=== PATIENT | female | born 1985 | race Two or more races ===

== ENCOUNTER 2020-03-21 10:20 | Outpatient (REF) | payer OTHER, SELFPAY ==
[2020-03-21 10:54] LABS: COVID-19 Test Negative (Negative)
== END 2020-03-21 10:21 | disposition home or self-care (01) ==
LOC: HO.LAB 10:20
PROVIDERS: Visit Provider Internal Medicine
DX: Z20.828 Contact with and (suspected) exposure to other viral communicable diseases (principal)
CPT/HCPCS: 87635

== ENCOUNTER 2020-06-23 09:25 | Outpatient (REF) | payer OTHER, MEDICAID, SELFPAY | END 2020-06-23 09:26 | disposition home or self-care (01) | LOC: HO.LAB 09:25 | PROVIDERS: Visit Provider Internal Medicine | DX: Z20.822 Contact with and (suspected) exposure to COVID-19 (principal) | CPT/HCPCS: 36415; C9803; U0003 ==

== ENCOUNTER 2020-07-03 14:52 | Outpatient (REF) | payer OTHER, MEDICAID, SELFPAY | END 2020-07-03 14:53 | disposition home or self-care (01) | LOC: HO.LAB 14:52 | PROVIDERS: Visit Provider Internal Medicine | DX: Z20.822 Contact with and (suspected) exposure to COVID-19 (principal) | CPT/HCPCS: 36415; C9803; U0003 ==

== ENCOUNTER 2020-07-17 09:38 | Outpatient (REF) | payer MEDICAID, SELFPAY | END 2020-07-17 09:39 | disposition home or self-care (01) | LOC: HO.LAB 09:38 | PROVIDERS: Visit Provider Internal Medicine | DX: Z20.822 Contact with and (suspected) exposure to COVID-19 (principal) | CPT/HCPCS: 36415; C9803; U0003; U0005 ==

== ENCOUNTER 2020-09-04 14:15 | Outpatient (REF) | payer OTHER, MEDICAID, SELFPAY | END 2020-09-04 14:16 | disposition home or self-care (01) | LOC: HO.LAB 14:15 | PROVIDERS: Visit Provider Internal Medicine | DX: Z20.822 Contact with and (suspected) exposure to COVID-19 (principal) | CPT/HCPCS: 36415; C9803; U0003; U0005 ==

== ENCOUNTER 2020-11-20 17:38 | Emergency (ER) | payer MEDICAID, SELFPAY ==
[2020-11-20 18:00] VITALS: BP 150/84; PULSE 87; RESP 16; TEMP 36.7; O2SAT 98; BMI 40.4
[2020-11-20] MEDS: Lidocaine HCl 1 % MPF 5 ML VIAL SUBCUT ×2 (18:51)
--- NOTE | 2020-11-20 18:54 | ED_ITS ---
HPI - Skin/Abscess/Foreign Bdy General Chief complaint: Skin/Abscess/Foreign Body Stated complaint: abscess Time Seen by Provider: 11/20/20 18:11 History of Present Illness HPI narrative: Patient complains of painful area on the skin of the right lower abdomen that is red painful and tender, no fever no vomiting no other abdominal pain, it started 3 days ago pain is mild Related Data Previous Rx's Medication Instructions Recorded ibuprofen 600 mg PO Q6H PRN #20 tab 11/20/20 oxycodone-acetaminophen [Percocet] 1 tab PO Q6H PRN #7 tab 11/20/20 sulfamethoxazole-trimethoprim 1 tab PO BID 7 Days #14 tab 11/20/20 [Bactrim DS] cephalexin 500 mg PO BID 10 Days #20 cap 11/24/20 ibuprofen 800 mg PO Q8H PRN #14 tab 11/24/20 oxycodone 5 mg PO BID PRN #10 tab 11/24/20 Allergies Allergy/AdvReac Type Severity Reaction Status Date / Time No Known Allergies Allergy Verified 11/22/20 11:28 [No Known Allergies*] Review of Systems Review of Systems: positive for painful area on skin of right lower abdomen Negatives are no fever no chills no dizziness no weakness no headache no neck p ain no chest pain no abdominal pain no nausea or vomiting no dysuria no anorexia no dysuria PMFSH Past Medical History Source: nursing notes reviewed Surgical History History of section History of renal stent History of tubal ligation Family History Family History Father Renal failure Hypertension CVD (cardiovascular disease) Diabetes Mother Hypertension Arthritis Depression Maternal Grandmother Stroke Maternal Grandfather No problems noted. Paternal Grandfather Cancer Daughter In good health Daughter In good health Social History Social History Advance Directives: No Advance Directives Information Provided: No Patient : No Physical Exam Vital Signs: Vital Signs: Last Vital Signs Temp 98.1 F 11/20/20 18:00 Pulse 87 11/20/20 18:00 Resp 16 11/20/20 18:00 BP 150/84 H 11/20/20 18:00 Pulse Ox 98 11/20/20 18:00 Body Mass Index 40.4 general appearance no acute distress Head is normocephalic atraumatic Neck is supple Respiratory no acute distress Abdomen soft nontender Skin exam on the skin of the right side of the lower abdomen there is an abscess with fluctuance erythema and tenderness it is mobile it is not fixed, there is no discharge and there is minimal surrounding erythema Extremities full range of motion x4 Skin no other rashes Course Course Course Narrative: Abdominal wall abscess on the right side is cleansed with Betadine Anesthesia is 8 cc of 1% lidocaine An incision is made, loculations are probed and opened with a forceps and copious pus is discharged Packing is placed and a dressing was placed Discharge Plan Discharge Clinical Impression: Abscess of skin or subcutaneous tissue Patient Disposition: Home, Self-Care Additional Instructions: Return to ER in 2 days for packing removal wound check Return anytime for spreading redness, worse pain and swelling, any worse con dition or any concerns Prescriptions: New sulfamethoxazole-trimethoprim [Bactrim DS] 800-160 mg tablet 1 tab PO BID 7 Days Qty: 14 RF: 0 ibuprofen 600 mg tablet 600 mg PO Q6H PRN (Reason: pain) Qty: 20 RF: 0 oxycodone-acetaminophen [Percocet] 5-325 mg tablet 1 tab PO Q6H PRN (Reason: pain) Qty: 7 RF: 0 No Action cephalexin 500 mg capsule 500 mg PO BID 10 Days Qty: 20 RF: 0 ibuprofen 800 mg tablet 800 mg PO Q8H PRN (Reason: pain) Qty: 14 RF: 0 oxycodone 5 mg tablet 5 mg PO BID PRN (Reason: pain) Qty: 10 RF: 0 Stand Alone Forms: Work/School Release Interventions: ED Discharge Assessment Last Done: 11/20/20 19:30 Discharge Date/Time: 11/20/20 19:30
[2020-11-20] MEDS: Ibuprofen 600 MG TABLET PO (19:20)
[2020-11-20] MEDS: oxyCODONE HCl Immed Release 5 MG TABLET PO (19:20)
== END 2020-11-20 19:30 | disposition home or self-care (01) ==
PROVIDERS: Emergency Provider Internal Medicine
DX: L02.211 Cutaneous abscess of abdominal wall (principal)
CPT/HCPCS: 10060; 99284

== ENCOUNTER 2020-11-22 11:21 | Emergency (ER) | payer MEDICAID, SELFPAY ==
[2020-11-22 11:26] VITALS: BP 127/59; PULSE 90; RESP 16; TEMP 36; O2SAT 99; BMI 40.4
[2020-11-22] MEDS: oxyCODONE HCl Immed Release 5 MG TABLET PO (12:47)
--- NOTE | 2020-11-22 12:48 | ED.SKABFB ---
HPI - Skin/Abscess/Foreign Bdy General Chief complaint: Skin/Abscess/Foreign Body Stated complaint: wound check Time Seen by Provider: 11/22/20 12:16 Source: patient Mode of arrival: ambulatory Limitations: no limitations History of Present Illness HPI narrative: Patient presents to ED for re-evaluation of abdominal abscess that was drained 2 days ago and packed. Patient denies any complaints since procedure. Patient states packing is still in place. Related Data Previous Rx's Medication Instructions Recorded ibuprofen 600 mg PO Q6H PRN #20 tab 11/20/20 oxycodone-acetaminophen [Percocet] 1 tab PO Q6H PRN #7 tab 11/20/20 sulfamethoxazole-trimethoprim 1 tab PO BID 7 Days #14 tab 11/20/20 [Bactrim DS] Allergies Allergy/AdvReac Type Severity Reaction Status Date / Time No Known Allergies Allergy Verified 11/22/20 11:28 [No Known Allergies*] Review of Systems Review of Systems: Yes all other systems are reviewed and are negative Constitutional: Constitutional: Reports as per HPI and Reports no additional constitutional complaints Eyes: Eyes: Reports as per HPI and Reports no additional eye complaints ENT: Reports system reviewed and no additional complaints, except as documented and Reports as per HPI Cardiovascular: Cardiovascular: Reports as per HPI and Reports no additional cardiovascular complaints Respiratory: Respiratory: Reports as per HPI and Reports no additional respiratory complaints Gastrointestinal: Gastrointestinal: Reports as per HPI and Reports no additional gastrointestinal complaints Musculoskeletal: Musculoskeletal: Reports no additional musculoskeletal complaints and Reports as per HPI Neurologic: Reports system reviewed and no additional complaints, except as documented and Reports as per HPI Psychiatric: Psychiatric: Reports no additional psychiatric complaints and Reports as per HPI [facility] Past Medical History Surgical History (Updated 07/18/20 @ 11:54 by BRIGETTE Littlejohn) History of section History of renal stent History of tubal ligation Family History Family History (Updated 07/18/20 @ 11:56 by BRIGETTE Littlejohn) Father Renal failure Hypertension CVD (cardiovascular disease) Diabetes Mother Hypertension Arthritis Depression Maternal Grandmother Stroke Maternal Grandfather No problems noted. Paternal Grandfather Cancer Daughter In good health Daughter In good health Social History Social History Advance Directives: No Advance Directives Information Provided: No Patient : No Physical Exam Vital Signs: Vital Signs: Last Vital Signs Temp 96.8 F 11/22/20 11:26 Pulse 90 11/22/20 11:26 Resp 16 11/22/20 11:26 BP 127/59 L 11/22/20 11:26 Pulse Ox 99 11/22/20 11:26 Body Mass Index 40.4 Const: General: cooperative, healthy appearing, comfortable, no acute distress, well developed, alert, awake and Physically active Orientation/consciousness: patient oriented x3 HENMT: Head: Yes normal to inspection, Yes No palpable skull fracture present, Yes normocephalic and Yes atraumatic Eyes: General: appearance normal, both eyes and all related structures Neck: Neck: Yes normal visual inspection, Yes full ROM, Yes no lymphadenopathy, Yes no meningeal signs, Yes trachea midline, Yes supple and No tender Chest: Chest palpation & inspection: normal inspection of the chest and normal palpation of entire chest wall Resp: Effort & Inspection: normal respiratory effort and able to speak in complete sentences Auscultation: clear to auscultation bilaterally Cardio: Jugular venous distension: no JVD Heart sounds: S1 normal heart sound present and S2 normal heart sound present GI: Inspection: Yes normal to inspection and No abdominal wall ecchymosis Palpation (GI): Soft to palpation, not firm, nontender, no guarding and not rigid Abdomen image: 1. Area of incision and drainage negative for any pus drainage, foul odor, or fluctuance. : General: No CVA tenderness and Yes no CVA tenderness Back/Spine/Pelvis: Back: no CVA tenderness, No CVA tenderness and No back tenderness Skin: General skin exam: no rashes or lesions noted and elasticity normal Neuro: General: patient oriented x3, gait normal, no meningeal signs and CN's II-XI intact bilaterally Cranial nerves: Yes CN's II-XII intact bilaterally Extrem: General: Yes normal to inspection and Yes full ROM Psych: Appearance: grossly normal, well kempt and not disheveled Course Course Course Narrative: Will clean wound change packing. Reevaluation(s) Reevaluation #1: Old packing removed. Wound cleaned with sterile saline and Betadine iodine. New packing placed. Dressing placed. Oxycodone given for pain relief. Patienton form to follow up in 2 days for wound re-evaluation and repacking. Time: 12:52 MDM - Skin/Abscess/Foreign Bdy MDM Narrative Medical decision making narrative: Wound recheck Discharge Plan Discharge Clinical Impression: Encounter for wound re-check Patient Disposition: Home, Self-Care Instructions: Abscess (ED) Additional Instructions: regrese al servicio de urgencias inmediatamente si empeora el enrojecimiento, secreci?n profusa de pus, mal olor, fiebre, escalofr?os, dolor abdominal, n?useas, v?mitos o cualquier otro s?ntoma preocupante. [place] los antibi?ticos seg?n lo prescrito. Tu herida se est? curando adecuadamente. Al servicio de urgencias 2 d?as para reevaluaci?n de la herida y reempaquetado Prescriptions: No Action sulfamethoxazole-trimethoprim [Bactrim DS] 800-160 mg tablet 1 tab PO BID 7 Days Qty: 14 RF: 0 ibuprofen 600 mg tablet 600 mg PO Q6H PRN (Reason: pain) Qty: 20 RF: 0 oxycodone-acetaminophen [Percocet] 5-325 mg tablet 1 tab PO Q6H PRN (Reason: pain) Qty: 7 RF: 0 Referrals: Sugar Villatoro NP [Primary Care Provider] - 2 days (I and D of abdominal wound abscess. Wound healing appropriately) Interventions: ED Discharge Assessment Last Done: 11/22/20 13:06 Discharge Date/Time: 11/22/20 13:07 Print Language: French
== END 2020-11-22 13:07 | disposition home or self-care (01) ==
PROVIDERS: Emergency Provider Emergency Medicine; PCP Registered Nurse
DX: L02.211 Cutaneous abscess of abdominal wall (principal); Z98.890 Other specified postprocedural states
CPT/HCPCS: 99283

== ENCOUNTER 2020-11-24 09:35 | Emergency (ER) | payer MEDICAID, SELFPAY ==
[2020-11-24 09:44] VITALS: BP 155/82; PULSE 87; RESP 18; TEMP 36.4; O2SAT 96; BMI 40.4
--- NOTE | 2020-11-24 10:05 | ED.RECABL ---
HPI - Recheck/Abnormal Lab/Rx General Chief Complaint: Wound/Laceration Stated Complaint: wound check Time Seen by Provider: 11/24/20 09:49 Source: patient Mode of arrival: ambulatory Limitations: language barrier ([place]-speaking) History of Present Illness HPI narrative: complaint: wound re-check Initial visit (ago): day(s) (Four days ago) Initial visit for: cellulitis and abscess Returns today for: wound recheck Symptoms since prior visit: no new symptoms and improved Context: planned re-check Associated symptoms: none Treatments prior to arrival: other (Is taking her prescribed medications as previously prescribed) Related Data Previous Rx's Medication Instructions Recorded ibuprofen 600 mg PO Q6H PRN #20 tab 11/20/20 oxycodone-acetaminophen [Percocet] 1 tab PO Q6H PRN #7 tab 11/20/20 sulfamethoxazole-trimethoprim 1 tab PO BID 7 Days #14 tab 11/20/20 [Bactrim DS] cephalexin 500 mg PO BID 10 Days #20 cap 11/24/20 ibuprofen 800 mg PO Q8H PRN #14 tab 11/24/20 oxycodone 5 mg PO BID PRN #10 tab 11/24/20 Allergies Allergy/AdvReac Type Severity Reaction Status Date / Time No Known Allergies Allergy Verified 11/22/20 11:28 [No Known Allergies*] Review of Systems Review of Systems: Constitutional : No Fever, No Chills, Cardiovascular : No Chest Pain, No SOB Respiratory : No Dyspnea Gastrointestinal : No abdominal pain Musculoskeletal : No Joint Swelling Skin : positive wound No skin laceration, No Foreign bodies, No rash, No surrounding erythema Neuro : No Weakness, No Numbness/tingling Psych : No SI/HI/thoughts of self injury Yes all other systems are reviewed and are negative [facility] Past Medical History Attestation statement: The following information was validated with the patient. Surgical History History of section History of renal stent History of tubal ligation Family History Family History Father Renal failure Hypertension CVD (cardiovascular disease) Diabetes Mother Hypertension Arthritis Depression Maternal Grandmother Stroke Maternal Grandfather No problems noted. Paternal Grandfather Cancer Daughter In good health Daughter In good health Social History Social History Advance Directives: No Advance Directives Information Provided: No Patient : No Physical Exam Vital Signs: Vital Signs: Last Vital Signs Temp 97.6 F 11/24/20 09:44 Pulse 87 11/24/20 09:44 Resp 18 11/24/20 09:44 BP 155/82 H 11/24/20 09:44 Pulse Ox 96 11/24/20 09:44 Body Mass Index 40.4 vital signs have been reviewed as normal and appeared to be correct. Blood pressure normal. Heart rate normal. Respiration rate normal. Temperature normal. Oxygen saturation normal. Appearance: Alert. Oriented X3. No acute distress. Head: Normal external exam. Normocephalic. Atraumaticd Eyes: PERRLA. EOMI. Conjunctiva and sclera normal. Eyelids normal. ENT: EAC normal. TM's Normal. Pharynx normal. Uvula midline. Moist mucous membranes. Neck: Normal inspection. Neck supple. FROM. No adenopathy. Thyroid Normal. No meningeal signs. No neck mass noted. CVS: Normal heart rate and rhythm. Heart sound normal. Pulses normal throughout. No murmurs/rales/gallops. Respiratory: No respiratory distress. Painless inspiration. Breath sounds normal. No wheezes/rales/rhonchi noted. Chest nontender. No accessory muscle usage noted or decreased air movement noted. Abdomen: To the right lower quadrant abdominal wall patient has a wound that appears healing with packing in place with no surrounding erythema or purulent drainage noted. Packing removed and irrigated and no purulent drainage noted. No streaking noted. Soft and nontender. Bowel sounds normal in all 4 quadrants. No distention noted. No organomegaly noted. No visible injury noted. Back: Full range of motion noted. No rashes/lesion/induration/fluctuance or signs of infection noted. Skin: Skin warm and dry. Normal skin color. Normal skin turgor. No rashes/lesions/lacerations noted. Extremities: No lower extremity edema. Extremities exhibit normal range of motion. Extremities nontender. Neuro: Oriented X 3. No motor deficit. No sensory deficit. Reflexes normal. Normal steady gait. No focal neuro deficits noted. Vascular: + radial pulses/+ 2 distal pedal pulses/+2 dorsalis pedis b/l. Normal cap refill. No cyanosis noted to upper extremity nails and lower extremity toes nails. Course Course Course Narrative: 35-year-old female presenting to the ED for wound check/packing removal she was initially seen here on 11/20/2020 and had an I&D of abscess to right lower quadrant abdominal wall. Return back on 11/22/2020 with worsening pain was prescribed Bactrim reports is taking as prescribed. Today I removed the packing no purulent drainage or streaking noted. I recommended to repack although patient refusing reports that she will take really good care of it due to the packing hurts her. Therefore will DC home with Keflex and symptomatic treatment instructions return if any new or worsening symptoms. MDM - Recheck/Abnormal Lab/Rx Medical Records Attestation: I reviewed the patient's medical records. Discharge Plan Discharge Clinical Impression: Visit for wound check Patient Disposition: Home, Self-Care Instructions: Wound Healing and Your Diet (ED) Prescriptions: New cephalexin 500 mg capsule 500 mg PO BID 10 Days Qty: 20 RF: 0 ibuprofen 800 mg tablet 800 mg PO Q8H PRN (Reason: pain) Qty: 14 RF: 0 oxycodone 5 mg tablet 5 mg PO BID PRN (Reason: pain) Qty: 10 RF: 0 No Action sulfamethoxazole-trimethoprim [Bactrim DS] 800-160 mg tablet 1 tab PO BID 7 Days Qty: 14 RF: 0 ibuprofen 600 mg tablet 600 mg PO Q6H PRN (Reason: pain) Qty: 20 RF: 0 oxycodone-acetaminophen [Percocet] 5-325 mg tablet 1 tab PO Q6H PRN (Reason: pain) Qty: 7 RF: 0 Referrals: Sugar Villatoro NP [Primary Care Provider] - 2 days Stand Alone Forms: Work/School Release Print Language: [place]
== END 2020-11-24 10:23 | disposition home or self-care (01) ==
PROVIDERS: Emergency Provider Emergency Medicine; PCP Registered Nurse
DX: L02.211 Cutaneous abscess of abdominal wall (principal); Z98.890 Other specified postprocedural states
CPT/HCPCS: 99283

== ENCOUNTER 2021-01-05 08:37 | Outpatient (REF) | payer MEDICAID, SELFPAY | END 2021-01-05 08:38 | disposition home or self-care (01) | LOC: HO.LAB 08:37 | PROVIDERS: PCP Registered Nurse; Visit Provider Internal Medicine | DX: Z20.822 Contact with and (suspected) exposure to COVID-19 (principal) | CPT/HCPCS: C9803; U0003; U0005 ==

== ENCOUNTER 2021-07-04 10:30 | Outpatient (REF) | payer MEDICAID, SELFPAY ==
--- NOTE | ~2021-07-04 | US_ITS ---
EXAMINATION: US PELVIC AND TRANSVAGINAL CLINICAL INFORMATION: Excessive menses. COMPARISON: None TECHNIQUE: Ultrasound of the pelvis is performed using both transabdominal and transvaginal transducers along with Doppler. Transvaginal imaging is performed due to inadequate visualization transabdominally. FINDINGS: Uterus: Uterus is 11 x 4.5 x 6 cm. Endometrial thickness 1.2 cm. The right ovary is 3.1 x 1.6 x 3 cm. Volume 8 mL. The left ovary is 2 x 2 x 2 cm. Volume 4 mL. The ovaries are felt to be within normal limits. No free fluid or obvious adnexal mass. US/US pelvic and transvaginal IMPRESSION: Endometrial thickness is measuring 1.2 cm at the fundus. This could be within normal limits for mid-to-late phase of the cycle. Otherwise, an element of hyperplasia or polyp formation cannot be excluded. Consider follow up.
== END 2021-07-04 10:31 | disposition home or self-care (01) ==
LOC: HO.US 10:30
PROVIDERS: Visit Provider Advanced Practice Midwife
DX: N92.0 Excessive and frequent menstruation with regular cycle (principal)
CPT/HCPCS: 76830; 76856

== ENCOUNTER → 2021-08-03 14:09 | Outpatient (BNVA) | payer MEDICAID, SELFPAY | PROVIDERS: PCP Registered Nurse; Referring Provider Nurse Practitioner Primary Care; Visit Provider Nurse Practitioner Family | DX: Z12.11 Encounter for screening for malignant neoplasm of colon (principal) | CPT/HCPCS: 99202 ==

== ENCOUNTER 2021-08-06 15:03 | Outpatient (REF) | payer MEDICAID, SELFPAY ==
[2021-08-06 17:33] LABS: HCG Quantitative < 2 mIU/mL; TSH reflex Free T4 2.18 uIU/mL (0.32-4.0)
== END 2021-08-06 15:04 | disposition home or self-care (01) ==
LOC: HO.LAB 15:03
PROVIDERS: Visit Provider Obstetrics & Gynecology
DX: N93.9 Abnormal uterine and vaginal bleeding, unspecified (principal)
CPT/HCPCS: 36415; 84443; 84702; 99202

== ENCOUNTER 2021-08-15 11:53 | Outpatient (REF) | payer MEDICAID, SELFPAY ==
[2021-08-15 16:30] LABS: CT PCR NOT DETECTED (Not Detect.); NG PCR NOT DETECTED (Not Detect.)
[2021-08-18 09:52] LABS: HPV mRNA E6/E7 rflx Not Detected (Not Detected)
== END 2021-08-15 11:54 | disposition home or self-care (01) ==
LOC: HO.LAB 11:53
PROVIDERS: PCP Nurse Practitioner Primary Care; Visit Provider Obstetrics & Gynecology
DX: Z01.411 Encounter for gynecological examination (general) (routine) with abnormal findings (principal); Z11.51 Encounter for screening for human papillomavirus (HPV); N93.9 Abnormal uterine and vaginal bleeding, unspecified
CPT/HCPCS: 87491; 87591; 87624; 88142; 99212

== ENCOUNTER 2021-08-23 07:18 | Day surgery (SDC) | payer MEDICAID, SELFPAY ==
--- NOTE | 2021-08-22 09:25 | P.CONAN_ITS ---
Documented by User: Araseli Huddleston NP 08/22/21 09:25 HPI - Anesthesia Eval Consult details Narrative: 35yo F for D&C Hysteroscopy possible polypectomy possible myomectomy PMFSH Active Problems Active Problems: All Active Problems (Updated 08/17/21 @ 11:02 by Madeleine Jenkins RN) Diabetes (Acute) HTN (hypertension), benign (Acute) High cholesterol (Acute) Obesity (Acute) Anemia (Acute) Abnormal uterine bleeding (AUB) (Acute) Past Medical History Medical History Anemia Diabetes Elevated cholesterol History of kidney stones HTN (hypertension) Migraines Obesity Family History Family History Father Renal failure Hypertension CVD (cardiovascular disease) Diabetes Mother Hypertension Arthritis Depression Maternal Grandmother Stroke Maternal Grandfather No problems noted. Paternal Grandfather Cancer Daughter In good health Daughter In good health Surgical History Surgical History History of section History of lithotripsy History of renal stent History of tubal ligation Social History Social History Patient Tobacco Use Status: Former Tobacco user Quit Date: 6-7 y/a Substance Use Type Other:: smoked yesterday Substance Use Frequency: Occasionally Are you DNR?: No Advance Directives: No Advance Directives Information Provided: Yes Recently lost weight without trying: No Patient : No (hx tubal,) Meds Allergies Allergy/AdvReac Type Severity Reaction Status Date / Time No Known Allergies Allergy Verified 08/17/21 11:07 [No Known Allergies*] Home Medications Medication Instructions Recorded Confirmed Last Taken Type atorvastatin 10 mg tablet 10 mg PO DAILY 08/03/21 08/17/21 Unknown History clotrimazole-betamethasone 1 appl TOPICAL 08/03/21 08/03/21 Unknown History %-0.05 % topical cream hydrochlorothiazide 12.5 mg tablet 12.5 mg PO DAILY 08/03/21 08/17/21 Unknown History lisinopril 20 mg tablet 20 mg PO DAILY 08/03/21 08/17/21 Unknown History metformin 500 mg tablet 1,000 mg PO BID 08/03/21 08/17/21 Unknown History dulaglutide 1.5 mg/0.5 mL mg SUBCUT QWEEK 08/17/21 08/17/21 Unknown History subcutaneous pen injector (Trulicity) empagliflozin 10 mg tablet 1 tab PO QAM 08/17/21 08/17/21 Unknown History (Jardiance) Exam Exam Date and Time: August 22, [id number] Assessment and Plan Assessment Anesthesia Assessment: Chart Reviewed Documented by User: Cesar Scruggs MD 08/23/21 08:15 [facility] Past Medical History Medical History Anemia Diabetes Elevated cholesterol History of kidney stones HTN (hypertension) Migraines Obesity Family History Family History Father Renal failure Hypertension CVD (cardiovascular disease) Diabetes Mother Hypertension Arthritis Depression Maternal Grandmother Stroke Maternal Grandfather No problems noted. Paternal Grandfather Cancer Daughter In good health Daughter In good health Family history of problems with anesthesia: No Surgical History Surgical History History of section History of lithotripsy History of renal stent History of tubal ligation History of Problems with Anesthesia: No Social History Social History Patient Tobacco Use Status: Former Tobacco user Quit Date: 6-7 y/a Substance Use Type Other:: smoked yesterday Substance Use Frequency: Occasionally Are you DNR?: No Advance Directives: No Advance Directives Information Provided: Yes Recently lost weight without trying: No Patient : No (hx tubal,) Meds Allergies Allergy/AdvReac Type Severity Reaction Status Date / Time No Known Allergies Allergy Verified 08/17/21 11:07 [No Known Allergies*] Home Medications Medication Instructions Recorded Confirmed Last Taken Type atorvastatin 10 mg tablet 10 mg PO DAILY 08/03/21 08/17/21 Unknown History clotrimazole-betamethasone 1 appl TOPICAL 08/03/21 08/03/21 Unknown History %-0.05 % topical cream hydrochlorothiazide 12.5 mg tablet 12.5 mg PO DAILY 08/03/21 08/17/21 Unknown History lisinopril 20 mg tablet 20 mg PO DAILY 08/03/21 08/17/21 Unknown History metformin 500 mg tablet 1,000 mg PO BID 08/03/21 08/17/21 Unknown History dulaglutide 1.5 mg/0.5 mL mg SUBCUT QWEEK 08/17/21 08/17/21 Unknown History subcutaneous pen injector (Trulicity) empagliflozin 10 mg tablet 1 tab PO QAM 08/17/21 08/17/21 Unknown History (Jardiance) Exam Airway Mallampati Class: III TM Dist: >3cm Neck ROM: Full Assessment and Plan Assessment Anesthesia Assessment: Anesthesia Plan Discussed Final Anesthetic Review Family History of Problems with Anesthesia: No History of Problems with Anesthesia: No NPO: Yes ASA Class: II Final Preanesthetic Review: No Changes in Pt Med Stat, Meds/Allgs Chart Reviewed, Consent Obtained/Reviewed and Anes Risks/Benef Reviewed Patient Risk: Intermediate Procedure Risk: Low Anesthetic Plan Anesthetic Plan: GA Disposition: Standard PACU
[2021-08-23 07:51] LABS: UPreg QC Valid YES; Urine Pregnancy NEGATIVE (NEGATIVE)
[2021-08-23 07:57] VITALS: BMI 38.7
[2021-08-23 08:06] VITALS: BP 122/63; PULSE 89; RESP 18; TEMP 36.2; O2SAT 98
[2021-08-23 08:14] LABS: Glucose, Whole Blood 177 mg/dL (60-115)
[2021-08-23] MEDS: Lactated Ringers 1,000 ML 100 ML IVCONT (08:32)
--- NOTE | 2021-08-23 08:55 | MHC.SHP ---
Pre-Procedural Eval Section A Date of Service: 08/23/21 The patient is an INPATIENT: No Changes since office visit: No Cold of Flu in the past 2 weeks, No New Medical Problems, No Changes in Medication and No Patient answered all questions The History & Physical has been completed within 30 days and I have reviewed it.: Yes Section B Chief Complaint: abnormal bleeding Allergies: Allergies Allergy/AdvReac Type Severity Reaction Status Date / Time No Known Allergies Allergy Verified 08/17/21 11:07 [No Known Allergies*] Plan Diagnosis/Plan: Unchanged I have reviewed the history and physical and performed a pertinent physical examination on my patient. No changes have occurred unless specified.
--- NOTE | 2021-08-23 09:20 | PM.OP ---
Brief Operative Note Date of Service: 08/23/21 Pre-op diagnosis: Abnormal uterine bleeding Post-op diagnosis: same (Normal endometrial cavity) Procedure: Hysteroscopy D&C Surgeon: Cordell Capone MD Anesthesia: MAC Was an [employer] Dist[employer] Operator used for this Procedure?: No Estimated blood loss (mL): 0 Pathology: other (Endometrial Scrapping) Condition: stable Disposition: PACU
--- NOTE | 2021-08-23 09:21 | W.PM.OPN ---
Operative Note Operative Note Date of Service: 08/23/21 Narrative: Preop Diagnosis: Abnormal uterine bleeding Operation: Diagnostic Hysteroscopy, Dilataion & Curettage Post Op Diagnosis: Normal endometrial cavity QBL: Minimal Anesthesia: MAC Surgeon: Cordell Capone MD Multi Operation Forming Machine Setter: None Complication: None Pathology: Endometrial Scrapings Complication: None Pathology: Endometrial Scrapings Procedure: The patient was put in the dorsal lithotomy position, scrubbed, and draped in the usual manner. A sterile speculum was inserted in the patient's vagina. The anterior lip of the cervix was grasped with a single tooth tenaculum. The cervix was dilated up to 5 mm, then the scope was inserted in the patient's uterus. Inspection revealed Normal endometrial cavity. Sharp curettings was carried on with moderate amount of tissues retrieved. At the end of the procedure, all instruments were taken out of the patient uterine and vaginal cavity. The single tooth tenaculum was removed and homeostasis was assured using pressure,. The patient tolerated the procedure well and was transferred to the PACU in a stable condition.
[2021-08-23 09:34] VITALS: BP 125/66; PULSE 94; RESP 18; TEMP 36.7; O2SAT 99
[2021-08-23 09:39] VITALS: BP 127/68; PULSE 94; RESP 17; O2SAT 98
[2021-08-23 09:44] VITALS: BP 113/79; PULSE 83; RESP 17; O2SAT 97
[2021-08-23 09:49] VITALS: BP 115/73; PULSE 86; RESP 18; O2SAT 99
[2021-08-23 10:04] VITALS: BP 121/52; PULSE 78; RESP 18; TEMP 36.5; O2SAT 98
== END 2021-08-23 10:33 | disposition home or self-care (01) ==
PROVIDERS: PCP Nurse Practitioner Primary Care; Visit Provider Obstetrics & Gynecology
PROC: 0UDB8ZZ Extraction of Endometrium, Via Natural or Artificial Opening Endoscopic (ICD-10-PCS; CPT 58558; principal; 2021-08-23 09:35)
DX: N93.9 Abnormal uterine and vaginal bleeding, unspecified (principal); Z98.891 History of uterine scar from previous surgery; Z98.51 Tubal ligation status; E66.9 Obesity, unspecified; Z68.38 Body mass index [BMI] 38.0-38.9, adult; I10 Essential (primary) hypertension; D64.9 Anemia, unspecified; E11.9 Type 2 diabetes mellitus without complications; Z79.84 Long term (current) use of oral hypoglycemic drugs; Z79.899 Other long term (current) drug therapy; Z87.442 Personal history of urinary calculi
CPT/HCPCS: 58558; 81025; 82947; 88305; J1885; J2250; J3010

== ENCOUNTER → 2021-09-06 14:51 | Outpatient (BNVA) | payer MEDICAID, SELFPAY | PROVIDERS: Visit Provider Obstetrics & Gynecology | DX: N93.9 Abnormal uterine and vaginal bleeding, unspecified (principal) | CPT/HCPCS: Q3014 ==

== ENCOUNTER 2021-09-14 10:35 | Day surgery (SDC) | payer MEDICAID, SELFPAY ==
[2021-09-10 10:40] VITALS: BMI 38.5
--- NOTE | 2021-09-13 09:37 | HO.ANESPROP2 ---
Documented by User: Araseli Huddleston NP 09/13/21 09:38 HPI - Anesthesia Eval Consult details Narrative: 35yo F for Colonoscopy PMFSH Active Problems Active Problems: All Active Problems (Updated 08/17/21 @ 11:02 by Madeleine Jenkins RN) Diabetes (Acute) HTN (hypertension), benign (Acute) High cholesterol (Acute) Obesity (Acute) Anemia (Acute) Abnormal uterine bleeding (AUB) (Acute) Past Medical History Medical History Anemia Diabetes Elevated cholesterol History of kidney stones HTN (hypertension) Migraines Obesity Family History Family History Father Renal failure Hypertension CVD (cardiovascular disease) Diabetes Mother Hypertension Arthritis Depression Maternal Grandmother Stroke Maternal Grandfather No problems noted. Paternal Grandfather Cancer Daughter In good health Daughter In good health Family history of problems with anesthesia: No Surgical History Surgical History History of section History of dilatation and curettage History of lithotripsy History of renal stent History of tubal ligation History of Problems with Anesthesia: No Social History Social History Patient Tobacco Use Status: Former Tobacco user Quit Date: 11 yrs ago Use of substances other than those prescribed or required for medical reasons: Yes Substance Use Frequency: Occasionally Are you DNR?: No Advance Directives: No Advance Directives Information Provided: Yes Meds Allergies Allergy/AdvReac Type Severity Reaction Status Date / Time No Known Allergies Allergy Verified 09/14/21 10:50 [No Known Allergies*] Home Medications Medication Instructions Recorded Confirmed Last Taken Type atorvastatin 10 mg tablet 10 mg PO DAILY 08/03/21 09/10/21 Unknown History clotrimazole-betamethasone 1 1 appl TOPICAL DAILY 08/03/21 09/10/21 Unknown History %-0.05 % topical cream hydrochlorothiazide 12.5 mg tablet 12.5 mg PO DAILY 08/03/21 09/10/21 Unknown History lisinopril 20 mg tablet 20 mg PO DAILY 08/03/21 09/10/21 Unknown History metformin 500 mg tablet 1,000 mg PO BID 08/03/21 09/10/21 Unknown History empagliflozin 10 mg tablet 1 tab PO QAM 08/17/21 09/10/21 Unknown History (Jardiance) Exam Exam Date and Time: September 13, 2021 0937 Height,Weight and Vital Signs: Height 4 ft 11 in Weight 86.636 kg Assessment and Plan Assessment Anesthesia Assessment: Chart Reviewed Final Anesthetic Review Family History of Problems with Anesthesia: No History of Problems with Anesthesia: No Documented by User: Eugenie Foote MD 09/14/21 12:20 [facility] Past Medical History Medical History Anemia Diabetes Elevated cholesterol History of kidney stones HTN (hypertension) Migraines Obesity Family History Family History Father Renal failure Hypertension CVD (cardiovascular disease) Diabetes Mother Hypertension Arthritis Depression Maternal Grandmother Stroke Maternal Grandfather No problems noted. Paternal Grandfather Cancer Daughter In good health Daughter In good health Surgical History Surgical History History of section History of dilatation and curettage History of lithotripsy History of renal stent History of tubal ligation Social History Social History Patient Tobacco Use Status: Former Tobacco user Quit Date: 11 yrs ago Use of substances other than those prescribed or required for medical reasons: Yes Substance Use Frequency: Occasionally Are you DNR?: No Advance Directives: No Advance Directives Information Provided: Yes Meds Allergies Allergy/AdvReac Type Severity Reaction Status Date / Time No Known Allergies Allergy Verified 09/14/21 10:50 [No Known Allergies*] Home Medications Medication Instructions Recorded Confirmed Last Taken Type atorvastatin 10 mg tablet 10 mg PO DAILY 08/03/21 09/10/21 Unknown History clotrimazole-betamethasone 1 1 appl TOPICAL DAILY 08/03/21 09/10/21 Unknown History %-0.05 % topical cream hydrochlorothiazide 12.5 mg tablet 12.5 mg PO DAILY 08/03/21 09/10/21 Unknown History lisinopril 20 mg tablet 20 mg PO DAILY 08/03/21 09/10/21 Unknown History metformin 500 mg tablet 1,000 mg PO BID 08/03/21 09/10/21 Unknown History empagliflozin 10 mg tablet 1 tab PO QAM 08/17/21 09/10/21 Unknown History (Jardiance) Exam Airway Mallampati Class: II TM Dist: >3cm Neck ROM: Full Loose/Missing/Broken Teeth: No Heart: RRR Lungs: CTA Assessment and Plan Final Anesthetic Review NPO: Yes ASA Class: II Final Preanesthetic Review: Meds/Allgs Chart Reviewed, Consent Obtained/Reviewed and Anes Risks/Benef Reviewed Patient Risk: Low Procedure Risk: Low Anesthetic Plan Anesthetic Plan: MAC: Disposition: Standard PACU
[2021-09-14 10:46] VITALS: BMI 38.1
[2021-09-14 10:56] VITALS: BP 114/72; PULSE 106; RESP 15; TEMP 36.4; O2SAT 97
[2021-09-14] MEDS: Lactated Ringers 1,000 ML 100 ML IVCONT (11:05)
[2021-09-14 11:10] LABS: Glucose, Whole Blood 188 mg/dL (60-115)
--- NOTE | 2021-09-14 11:30 | MHC.SHP ---
Pre-Procedural Eval Section A Date of Service: 09/14/21 Section B Chief Complaint: screening Relevant Family History (Specify if Yes): Yes Relevant Social History: None Present Medications: see Short Stay Collaborative assessment Medical History: Significant History (diabetes, hypertension, anemia, high cholestrol) History of Previous Operations: Relevant previous surgery/procedure and date(s) (History of section History of renal stent History of tubal ligation) Allergies: Allergies Allergy/AdvReac Type Severity Reaction Status Date / Time No Known Allergies Allergy Verified 09/14/21 10:50 [No Known Allergies*] Review of Systems Sugical H&P ROS: Negative: Constitution, Cardiovascular, Respiratory and Gastrointestinal Exam Surgical H&P Exam: Normal: Heart, Normal: Lungs, Normal: Extremities and Normal: Abdomen Plan Diagnosis/Plan: Unchanged I have reviewed the history and physical and performed a pertinent physical examination on my patient. No changes have occurred unless specified.
[2021-09-14 11:45] LABS: COVID-19 Test Negative (Negative); IDNOW Serial# 16C4AD1C
--- NOTE | 2021-09-14 12:20 | P.BOP_ITS ---
Brief Operative Note Date of Service: 09/14/21 Pre-op diagnosis: Colon cancer screening, family history of colon cancer (cousin at age 37 yrs) Post-op diagnosis: other (Colon polyps and diverticulosis) Procedure: COLONOSCOPY TILL CECUM WITH BIOPSIES AND SNARE POLYPECTOMY Consent: Indications for the procedure and potential complications of bleeding, perforation, reaction to medications and missed diagnosis were discussed with the patient the help of a Macedonian guest associate and informed consent was obtained. Instrument: Olympus PCF H 190 L variable stiffness pediatric colonoscope Monitoring: Vital signs and clinical assessment, intermittent blood pressure monitoring, continuous EKG monitoring, Pulse oximetry and Carbon Dioxide monitoring were done throughout the procedure. Colon withdrawl time was 18 minutes. Procedure: The patient was placed in the left lateral decubitis position and pre-procedure medications were administered. After a digital rectal examination of the ano-rectum, the video colonoscope was inserted into the rectum and advanced through the colon to the cecum. The colonoscope was slowly withdrawn in a retrograde panoramic fashion and the colon mucosa was carefully examined including a retroflexed view of the rectum. Findings and interventions are described below. Procedure Difficulty: Without difficulty Findings: Terminal Ileum: Not evaluated Cecum: Normal Ascending Colon: Normal Transverse Colon: Normal Descending Colon: Moderate diverticulosis Sigmoid Colon: A 4-5 mm diminutive appearing polyp removed with the cold biopsy. A 7-8 mm sessile polyp in the recto-sigmoid area removed with the cold snare Moderate diverticulosis Rectum: Normal Ano-rectum: Normal Colon preparation: Good after copious irrigation Impression and Post Procedure Diagnosis: Colonoscopy Findings: Two small polyps removed Moderate diverticulosis seen in the left colon Plan: Await pathology results Patient has an appointment on 10/08/21 in the GI Clinic with Elise Salinas FNP- BC. Repeat Colonoscopy interval based on path results - in 5 years if polyps are adenomatous and due to family hx of colon cancer. Above findings were reviewed with the patient and colon polyps and diverti culosis handouts were given in the discharge area Surgeon: Susan Strong MD Anesthesia: MAC Was an Squeegeer And Former used for this Procedure?: Yes Squeegeer And Former: Stephany Romo Estimated blood loss (mL): 0 Pathology: other (A. SIGMOID COLON POLYPS) Condition: stable Disposition: PACU
--- NOTE | 2021-09-14 12:25 | P.OP_ITS ---
Operative Note Operative Note Date of Service: 09/14/21 Narrative: Pre-op diagnosis: Colon cancer screening, family history of colon cancer (cousin at age 37 yrs) Post-op diagnosis:?Colon polyps and diverticulosis Procedure: COLONOSCOPY TILL CECUM WITH BIOPSIES AND SNARE POLYPECTOMY Consent: Indications for the procedure and potential complications of bleeding, perforation, reaction to medications and missed diagnosis were discussed with the patient the help of a Lao strategic client executive and informed consent was obtained. Instrument: Olympus PCF H 190 L variable stiffness pediatric colonoscope Monitoring: Vital signs and clinical assessment, intermittent blood pressure monitoring, continuous EKG monitoring, Pulse oximetry and Carbon Dioxide monitoring were done throughout the procedure. Colon withdrawl time was 18 minutes. Procedure: The patient was placed in the left lateral decubitis position and pre-procedure medications were administered. After a digital rectal examination of the ano-rectum, the video colonoscope was inserted into the rectum and advanced through the colon to the cecum. The colonoscope was slowly withdrawn in a retrograde panoramic fashion and the colon mucosa was carefully examined including a retroflexed view of the rectum. Findings and interventions are described below. Procedure Difficulty: Without difficulty Findings: Terminal Ileum: Not evaluated Cecum:? Normal Ascending Colon:? Normal Transverse Colon:? Normal Descending Colon:? Moderate diverticulosis Sigmoid Colon:? A 4-5 mm diminutive appearing polyp removed with the cold biopsy.? A 7-8 mm sessile polyp in the recto-sigmoid area removed with the cold snare Moderate diverticulosis Rectum:? Normal Ano-rectum:? Normal Colon preparation:? Good after copious irrigation Impression and Post Procedure Diagnosis: Colonoscopy Findings: Two small polyps removed Moderate diverticulosis seen in the left colon Plan: Await pathology results Patient has an appointment on 10/08/21 in the GI Clinic with Elise Salinas FNP- BC. Repeat Colonoscopy interval based on path results - in 5 years if polyps are adenomatous and due to family hx of colon cancer. Colon polyps and diverticulosis handouts were given in the discharge area Surgeon: Susan Strong MD Anesthesia:?MAC Was an Paper Coating Supervisor used for this Procedure?:?Yes Paper Coating Supervisor:?Stephany Romo Estimated blood loss (mL):?0 Pathology:?other (A. SIGMOID COLON POLYPS) Condition:?stable Disposition:?PACU
[2021-09-14 13:05] VITALS: BP 106/61; PULSE 100; RESP 20; TEMP 36.2; O2SAT 99
[2021-09-14 13:20] VITALS: BP 114/69; PULSE 91; RESP 18; O2SAT 99
[2021-09-14 13:35] VITALS: BP 115/77; PULSE 80; RESP 18; TEMP 36.6; O2SAT 100
== END 2021-09-14 14:00 | disposition home or self-care (01) ==
PROVIDERS: Anesthesiology; PCP Nurse Practitioner Primary Care; Visit Provider Internal Medicine Gastroenterology
PROC: 0DJD8ZZ Inspection of Lower Intestinal Tract, Via Natural or Artificial Opening Endoscopic (ICD-10-PCS; CPT 45378; principal; 2021-09-14 12:10)
DX: Z12.11 Encounter for screening for malignant neoplasm of colon (principal); K63.5 Polyp of colon; K57.30 Diverticulosis of large intestine without perforation or abscess without bleeding; Z80.0 Family history of malignant neoplasm of digestive organs; D64.9 Anemia, unspecified; E78.00 Pure hypercholesterolemia, unspecified; I10 Essential (primary) hypertension; E11.9 Type 2 diabetes mellitus without complications; Z79.84 Long term (current) use of oral hypoglycemic drugs; Z79.899 Other long term (current) drug therapy; Z20.822 Contact with and (suspected) exposure to COVID-19; Z87.891 Personal history of nicotine dependence
CPT/HCPCS: 45385; 45380; 82947; 87635; 88305

== ENCOUNTER → 2021-10-08 08:16 | Outpatient (BNVA) | payer MEDICAID, SELFPAY | PROVIDERS: PCP Nurse Practitioner Primary Care; Referring Provider Nurse Practitioner Primary Care; Visit Provider Nurse Practitioner Family | DX: K57.30 Diverticulosis of large intestine without perforation or abscess without bleeding (principal); Z98.890 Other specified postprocedural states | CPT/HCPCS: 99212 ==

== ENCOUNTER 2023-01-17 22:36 | Emergency (ER) | payer MEDICAID, SELFPAY ==
--- NOTE | 2023-01-17 | ECG_ITS ---
Test Reason : CHEST PAIN Blood Pressure : / mmHG Vent. Rate : 093 BPM Atrial Rate : 093 BPM P-R Int : 144 ms QRS Dur : 084 ms QT Int : 340 ms P-R-T Axes : 035 012 018 degrees QTc Int : 422 ms Normal sinus rhythm Normal ECG No previous ECGs available Referred By: Generic ED Physician Electronically Signed By:Jefry Aguero
--- NOTE | ~2023-01-17 | XR_ITS ---
EXAMINATION: XR CHEST CLINICAL INFORMATION: Chest pain. COMPARISON: 07/11/2015. TECHNIQUE: 2 views of the chest were obtained. FINDINGS: The cardiomediastinal silhouette is normal. There is no focal lung consolidation or pleural effusion. The bony structures and soft tissues are unremarkable. XR/XR chest 2V IMPRESSION: No active cardiopulmonary disease.
[2023-01-17 22:45] VITALS: BP 131/80; PULSE 98; RESP 20; TEMP 36.7; O2SAT 99; BMI 37.6
[2023-01-17 22:55] LABS: Hemoglobin 13.5 g/dl (12.0-16.0); Mean Corpuscular HGB Conc 31.4 g/dl (31.0-35.0); Mean Corpuscular Hemoglobin 25.2 pg (27.0-33.0); Mean Corpuscular Volume 80.4 fL (80.0-98.0); Mean Platelet Volume 9.7 fL (9.4-12.3); Platelet Count 304 X10*3/uL (160-400); Red Blood Count 5.35 X10*6/uL (4.20-5.50); Red Cell Distribution Width 15.8 % (11.0-16.0); White Blood Count 15.1 X10*3/uL (4.8-10.8)
[2023-01-17 23:10] LABS: Alanine Aminotransferase 28 U/L (0-31); Albumin Level 4.5 g/dL (3.5-5.0); Alkaline Phosphatase 106 U/L (39-117); Anion Gap 14 (12-20); Aspartate Amino Transferase 17 U/L (5-31); Bilirubin Total 0.3 mg/dL (0.0-1.0); Blood Urea Nitrogen 13 mg/dL (9-16); Calcium 9.6 mg/dL (8.4-10.2); Carbon Dioxide 20 mmol/L (22-29); Chloride 108 mmol/L (96-108); Creatinine Clr Calc Pharmacy 94.8; Estimated Glomerular Filt Rate > 60; Glucose Random 111 mg/dL (60-115); Potassium 3.8 mmol/L (3.3-5.1); Sodium 138 mmol/L (135-145); Total Protein 7.9 g/dL (6.5-8.0)
[2023-01-17 23:16] LABS: Troponin-I High Sensitivity < 2.7 ng/L (<3.5-17.0)
[2023-01-18 00:47] VITALS: BP 118/69; PULSE 88; RESP 22; TEMP 37.2; O2SAT 100
--- NOTE | 2023-01-18 01:00 | PC.NURSE ---
Patient presents with chest pain that starts in the center and goes down her right arm. Patient is well appearing, speaking in full sentences, no s/s of distress noted at this time.
[2023-01-18 01:56] LABS: Influenza A PCR NEGATIVE (Negative); Influenza B PCR NEGATIVE (Negative); Resp Syncy Virus RNA Qual PCR NEGATIVE (Negative); SARS COV2 PCR INHOUSE NEGATIVE (Negative)
[2023-01-18 02:00] LABS: HCG Quantitative < 2 mIU/mL
[2023-01-18 02:29] VITALS: BP 119/65; PULSE 84; RESP 18; TEMP 37.2; O2SAT 97
--- NOTE | 2023-01-18 03:17 | ED_ITS ---
HPI - Chest Pain General Chief Complaint: Chest Pain Stated Complaint: chest pain Time Seen by Provider: 01/18/23 03:12 Source: patient Mode of arrival: ambulatory Limitations: no limitations History of Present Illness HPI narrative: Patient comes to the emergency room complaining of right-sided chest pain and right arm pain for approximately 24 hours. Patient denies shortness of breath. Patient denies any trauma to the area. Related Data Home Medications Medication Instructions Recorded Confirmed atorvastatin 10 mg tablet 10 mg PO DAILY 08/03/21 09/10/21 clotrimazole-betamethasone 1 1 appl topical DAILY 08/03/21 09/10/21 %-0.05 % topical cream hydrochlorothiazide 12.5 mg tablet 12.5 mg PO DAILY 08/03/21 09/10/21 lisinopril 20 mg tablet 20 mg PO DAILY 08/03/21 09/10/21 metformin 500 mg tablet 1,000 mg PO BID 08/03/21 09/10/21 empagliflozin 10 mg tablet 1 tab PO QAM 08/17/21 09/10/21 (Jardiance) Previous Rx's Medication Instructions Recorded ibuprofen 800 mg tablet 800 mg PO Q8H PRN pain #14 tabs 11/24/20 methylcellulose (laxative) 500 mg 500 mg PO DAILY #30 tabs 10/08/21 tablet (Citrucel) Allergies Allergy/AdvReac Type Severity Reaction Status Date / Time No Known Allergies Allergy Verified 10/08/21 08:20 [No Known Allergies*] Review of Systems Review of Systems: Constitutional : No Weight loss, No Fever, No Chills, No Night Sweats, No Fatigue, No Malaise ENT/Mouth : No Hearing loss, No Ear Pain, No Nasal Congestion, No Sinus Pain, No Hoarseness, No sore throat, No Rhinorrhea, No Swallowing Difficulty Eyes: No Eye Pain, No Swelling, No Redness, No Foreign Body, No Discharge, No Vision Changes Cardiovascular : Complaining of right-sided chest pain, worse with movement radiating towards the right arm, No SOB, No Dyspnea on Exertion, No Orthopnea, No Edema, No Palpitations Respiratory : No Cough, No Sputum, No Wheezing, No Smoke Exposure, No Dyspnea Gastrointestinal : No Nausea, No Vomiting, No Diarrhea, No Constipation, No a bdominal Pain, No Hematochezia, No Melena Genitourinary : no irregular bleeding, No Dysuria, No Urinary Frequency, No Hematuria, No Urinary Incontinence, No Urgency, No Flank Pain, No Urinary Flow Changes, No Hesitancy Musculoskeletal : No joint pain, No Myalgias, No Joint Swelling Skin : No Skin Lesions, No rash Neuro : No Weakness, No Numbness, No Paresthesias, No Loss of Consciousness, No Dizziness, No Headache Psych : No Anxiety/Panic, No Depression, No SI/HI/AH/VH, No Social Issues, Heme/Lymph: No Bruising, No Bleeding,No Lymphadenopathy Endocrine : No Polyuria, No Polydipsia, No Temperature Intolerance [facility] Past Medical History Medical History Anemia Diabetes Diverticulosis Elevated cholesterol History of kidney stones HTN (hypertension) Migraines Obesity Surgical History History of section History of dilatation and curettage History of lithotripsy History of renal stent History of tubal ligation Hx of colonoscopy Family History Family History Father Renal failure Hypertension CVD (cardiovascular disease) Diabetes Mother Hypertension Arthritis Depression Maternal Grandmother Stroke Maternal Grandfather No problems noted. Paternal Grandfather Cancer Daughter In good health Daughter In good health Social History Social History (Updated 10/08/21 @ 08:20 by Irina Erickson) Alcohol intake: never Patient Tobacco Use Status: Former Tobacco user Quit Date: 11 yrs ago Smoked in Last 30 Days: No Use of substances other than those prescribed or required for medical reasons: No Advance Directives: No Advance Directives Information Provided: Yes Physical Exam Vital Signs: Vital Signs: Last Vital Signs Temp 99.0 F 01/18/23 02:29 Pulse 84 01/18/23 02:29 Resp 18 01/18/23 02:29 BP 119/65 01/18/23 02:29 Pulse Ox 97 01/18/23 02:29 O2 Del Method Room Air 01/18/23 02:29 BMI result Body Mass Index 37.6 Const: Other: Appearance: Alert. Oriented X3. No acute distress. Eyes: Pupils equal, round and reactive to light. ENT: Pharynx normal. Neck: Normal inspection. Neck supple. No lymph nodes noted. No crepitus CVS: Reproducible chest pain to palpation on the right side. Normal heart rate and rhythm. Pulses normal. Normal S1 and S2 Respiratory: No respiratory distress. Breath sounds normal. No Wheezing. No rales Abdomen: Soft and nontender. No rigidity. No distention. Skin: Skin warm and dry. Normal skin color. Normal skin turgor. Extremities: No lower extremity edema. No Lacerations. No Rash Neuro: Oriented X 3. No motor deficit. No sensory deficit. Moving all extremities. No slurred speech. CN 2 through 12 grossly intact Psych: calm, cooperative, normal affect Medical Decision Making Medical Decision Making [facility] Narrative: -my interpretation of EKG: Normal sinus rhythm, heart rate 93, no ST segment depression or elevation, nonspecific T-wave inversion in lead 3, QTC 422 -troponin 1- and it has been over 24 hours of symptoms -physical exam, reproducible chest pain -heart score 0 -wells criteria for PE negative -interpretation of chest x-ray, no obvious abnormalities, no pneumonia, no fractured ribs -discussed with the patient that her pain is likely musculoskeletal, not cardiac, not pulmonary Differential Diagnosis Differential Diagnoses: The differential diagnosis associated with the presentation includes (ACS, costochondritis, pleurisy) Admission/Observation Consideration of admission/observation: Escalation of care including admission/observation considered (Patient initially came in complaining of chest pain for 24 hours, admission considered) Lab Data [facility] Lab Attestation statement: I reviewed the patient's lab results. 01/17/23 22:50 01/17/23 22:50 Labs: Lab Results 01/17/23 01/17/23 01/17/23 Range/Units 22:50 22:50 22:50 WBC 15.1 H (4.8-10.8) X10*3/uL RBC 5.35 (4.20-5.50) X10*6/uL Hgb 13.5 (12.0-16.0) g/dl Hct 43.0 (37.0-47.0) % MCV 80.4 (80.0-98.0) fL MCH 25.2 L (27.0-33.0) pg MCHC 31.4 (31.0-35.0) g/dl RDW 15.8 (11.0-16.0) % Plt Count 304 (160-400) X10*3/uL MPV 9.7 (9.4-12.3) fL Absolute Nucleated RBC 0.000 (0.0-0.012) X10*3/uL Nucleated RBC % (auto) 0.0 (0.0-0.2) /100WBC Sodium 138 (135-145) mmol/L Potassium 3.8 (3.3-5.1) mmol/L Chloride 108 (96-108) mmol/L Carbon Dioxide 20 L (22-29) mmol/L Anion Gap 14 (12-20) BUN 13 (9-16) mg/dL Creatinine 0.78 (0.5-1.4) mg/dL Estim Creat Clear Calc 94.8 Estimated GFR > 60 Random Glucose 111 (60-115) mg/dL Calcium 9.6 (8.4-10.2) mg/dL Total Bilirubin 0.3 (0.0-1.0) mg/dL AST 17 (5-31) U/L ALT 28 (0-31) U/L Alkaline Phosphatase 106 (39-117) U/L Troponin I High Sens < 2.7 (<3.5-17.0) ng/L Total Protein 7.9 (6.5-8.0) g/dL Albumin 4.5 (3.5-5.0) g/dL Beta HCG, Quant < 2 mIU/mL Influenza Type A (PCR) (Negative) Influenza Type B (PCR) (Negative) RSV RNA Qual (PCR) (Negative) SARS-CoV-2 RNA (RT-PCR) (Negative) 01/18/23 Range/Units 01:11 WBC (4.8-10.8) X10*3/uL RBC (4.20-5.50) X10*6/uL Hgb (12.0-16.0) g/dl Hct (37.0-47.0) % MCV (80.0-98.0) fL MCH (27.0-33.0) pg MCHC (31.0-35.0) g/dl RDW (11.0-16.0) % Plt Count (160-400) X10*3/uL MPV (9.4-12.3) fL Absolute Nucleated RBC (0.0-0.012) X10*3/uL Nucleated RBC % (auto) (0.0-0.2) /100WBC Sodium (135-145) mmol/L Potassium (3.3-5.1) mmol/L Chloride (96-108) mmol/L Carbon Dioxide (22-29) mmol/L Anion Gap (12-20) BUN (9-16) mg/dL Creatinine (0.5-1.4) mg/dL Estim Creat Clear Calc Estimated GFR Random Glucose (60-115) mg/dL Calcium (8.4-10.2) mg/dL Total Bilirubin (0.0-1.0) mg/dL AST (5-31) U/L ALT (0-31) U/L Alkaline Phosphatase (39-117) U/L Troponin I High Sens (<3.5-17.0) ng/L Total Protein (6.5-8.0) g/dL Albumin (3.5-5.0) g/dL Beta HCG, Quant mIU/mL Influenza Type A (PCR) NEGATIVE (Negative) Influenza Type B (PCR) NEGATIVE (Negative) RSV RNA Qual (PCR) NEGATIVE (Negative) SARS-CoV-2 RNA (RT-PCR) NEGATIVE (Negative) Independent Interpretation I performed an independent interpretation of an: EKG and Plain X-Ray Radiology Impression Discussion of test interpretation with radiology: I have reviewed the radiologist's reading. Radiologist Impression: FINDINGS: The cardiomediastinal silhouette is normal. There is no focal lung consolidation or pleural effusion. The bony structures and soft tissues are unremarkable. XR/XR chest 2V IMPRESSION: No active cardiopulmonary disease. Scores Heart Score History: -0- slightly suspicious ECG: -0- normal Age: -0- < or = 45 Risk factory: -0- no risk factors known Troponin: -0- < or = normal limit Score: 0 Risk: 1.7% Critical Care Time Critical Care Time Critical Care Time: Yes Total Critical Care Time: 45 Attestation: I have personally provided critical care time. Time includes review of lab data, radiology results, discussion with consultants, and monitoring for potential decompensation. Intervention performed as documented. Discharge Plan Discharge Clinical Impression: Atypical chest pain Patient Disposition: Home, Self-Care Instructions: Chest Wall Pain (ED) Additional Instructions: Please follow-up with your primary care physician tomorrow. If you have any worsening or new symptoms, please return to the emergency room or call 911 Prescriptions: No Action ibuprofen 800 mg tablet 800 mg PO Q8H PRN (Reason: pain) Qty: 14 0RF Jardiance 10 mg tablet 1 tab PO QAM lisinopril 20 mg tablet 20 mg PO DAILY atorvastatin 10 mg tablet 10 mg PO DAILY metformin 500 mg tablet 1,000 mg PO BID clotrimazole-betamethasone 1-0.05 % cream 1 appl topical DAILY hydrochlorothiazide 12.5 mg tablet 12.5 mg PO DAILY Citrucel 500 mg tablet 500 mg PO DAILY Qty: 30 2RF Rx Instructions: take it with full glass of water
[2023-01-18] MEDS: Ibuprofen 600 MG TABLET PO (03:27)
== END 2023-01-18 03:35 | disposition home or self-care (01) ==
PROVIDERS: Physician Assistant Medical; Emergency Provider Emergency Medicine
DX: R07.89 Other chest pain (principal); Z20.822 Contact with and (suspected) exposure to COVID-19; Z20.828 Contact with and (suspected) exposure to other viral communicable diseases; E11.9 Type 2 diabetes mellitus without complications; I10 Essential (primary) hypertension; E78.5 Hyperlipidemia, unspecified; Z87.891 Personal history of nicotine dependence; Z79.899 Other long term (current) drug therapy
CPT/HCPCS: 0241U; 36415; 71046; 80053; 84484; 84702; 85027; 93005; 99283; 99285

== ENCOUNTER → 2023-01-17 22:41 | Outpatient (BNV) | payer MEDICAID, SELFPAY | PROVIDERS: Emergency Provider Emergency Medicine; Visit Provider Internal Medicine Cardiovascular Disease | DX: R07.9 Chest pain, unspecified (principal) | CPT/HCPCS: 93010 ==

== ENCOUNTER 2023-06-27 14:29 | Emergency (ER) | payer MEDICAID, SELFPAY ==
--- NOTE | ~2023-06-27 | US_ITS ---
EXAMINATION: US PELVIS CLINICAL INFORMATION: Vaginal bleeding x10 days. IUD. Suprapubic pain. COMPARISON: None available. TECHNIQUE: Ultrasound of the pelvis is performed using both transabdominal and transvaginal transducers along with Doppler. Transvaginal imaging is performed due to inadequate visualization transabdominally. FINDINGS: Uterus: The uterus is retroverted, retroflexed and measures 9.7 x 4.5 x 5.5 cm. The double wall endometrial thickness is 0.2 cm The uterus is smooth in contour and has normal myometrial echogenicity. No visible fibroid. There is an low-lying IUD in the lower uterine segment. Adnexa: Both ovaries are visualized. There is normal color flow to the adnexa. There is no ovarian torsion. There is no pelvic ascites or fluid collection. Right ovary measures 3.2 x 1.8 x 2.3 cm and volume 6.9 mL. It appears unremarkable. Previously right ovary measured 2.1 x 1.6 x 3.1 cm and volume 8.0 mL. Left ovary measures 5.0 x 5.2 x 2.7 cm and volume 50.4 mL. There is anechoic cyst measuring 4.5 of 4.0 x 3.7 cm. There is normal arterial and venous flow seen to both ovaries on Doppler exam. There is no free fluid in the cul-de-sac. US/US pelvic and transvaginal IMPRESSION: Low-lying IUD in lower uterine segment. The uterus otherwise unremarkable. Simple 4.5 cm cyst left ovary. Unremarkable right ovary.
--- NOTE | ~2023-06-27 | US_ITS ---
EXAMINATION: US PELVIS CLINICAL INFORMATION: Vaginal bleeding x10 days. IUD. Suprapubic pain. COMPARISON: None available. TECHNIQUE: Ultrasound of the pelvis is performed using both transabdominal and transvaginal transducers along with Doppler. Transvaginal imaging is performed due to inadequate visualization transabdominally. FINDINGS: Uterus: The uterus is retroverted, retroflexed and measures 9.7 x 4.5 x 5.5 cm. The double wall endometrial thickness is 0.2 cm The uterus is smooth in contour and has normal myometrial echogenicity. No visible fibroid. There is an low-lying IUD in the lower uterine segment. Adnexa: Both ovaries are visualized. There is normal color flow to the adnexa. There is no ovarian torsion. There is no pelvic ascites or fluid collection. Right ovary measures 3.2 x 1.8 x 2.3 cm and volume 6.9 mL. It appears unremarkable. Previously right ovary measured 2.1 x 1.6 x 3.1 cm and volume 8.0 mL. Left ovary measures 5.0 x 5.2 x 2.7 cm and volume 50.4 mL. There is anechoic cyst measuring 4.5 of 4.0 x 3.7 cm. There is normal arterial and venous flow seen to both ovaries on Doppler exam. There is no free fluid in the cul-de-sac. US/US pelvic ovarian doppler IMPRESSION: Low-lying IUD in lower uterine segment. The uterus otherwise unremarkable. Simple 4.5 cm cyst left ovary. Unremarkable right ovary.
[2023-06-27 15:30] VITALS: BP 169/90; PULSE 87; RESP 18; TEMP 36; O2SAT 99; BMI 33.8
--- NOTE | 2023-06-27 15:30 | ED_ITS ---
HPI - Female Genitourinary General Chief complaint: Vaginal Bleeding Stated complaint: Referred by PCP - vaginal bleeding 2 weeks Time Seen by Provider: 06/27/23 21:25 Related Data Home Medications Medication Instructions Recorded Confirmed atorvastatin 10 mg tablet 10 mg PO DAILY 08/03/21 09/10/21 clotrimazole-betamethasone 1 1 appl topical DAILY 08/03/21 09/10/21 %-0.05 % topical cream hydrochlorothiazide 12.5 mg tablet 12.5 mg PO DAILY 08/03/21 09/10/21 lisinopril 20 mg tablet 20 mg PO DAILY 08/03/21 09/10/21 metformin 500 mg tablet 1,000 mg PO BID 08/03/21 09/10/21 empagliflozin 10 mg tablet 1 tab PO QAM 08/17/21 09/10/21 (Jardiance) Previous Rx's Medication Instructions Recorded ibuprofen 800 mg tablet 800 mg PO Q8H PRN pain #14 tabs 11/24/20 methylcellulose (laxative) 500 mg 500 mg PO DAILY #30 tabs 10/08/21 tablet (Citrucel) Allergies Allergy/AdvReac Type Severity Reaction Status Date / Time No Known Allergies Allergy Verified 06/27/23 15:30 [No Known Allergies*] PMFSH Past Medical History Onset Date is defined in the Problem List Problems that require an onset date and time if occurred within 24 hrs of arrival to the ED Aortic Dissection and Rupture; Neurologic impairment; Cardiopulmonary Arrest; Endotracheal Intubation; Insertion or Replacement of Mechanical Circulatory Assist Device Medical History Diverticulosis Migraines History of kidney stones Obesity Anemia Diabetes Elevated cholesterol HTN (hypertension) Surgical History Hx of colonoscopy History of dilatation and curettage History of lithotripsy History of renal stent History of tubal ligation History of section Family History Family History Father Renal failure Hypertension CVD (cardiovascular disease) Diabetes Mother Hypertension Arthritis Depression Maternal Grandmother Stroke Maternal Grandfather No problems noted. Paternal Grandfather Cancer Daughter In good health Daughter In good health Social History Social History Alcohol intake: never Patient Tobacco Use Status: Former Tobacco user Quit Date: 11 yrs ago Smoked in Last 30 Days: No Use of substances other than those prescribed or required for medical reasons: No Advance Directives: No Advance Directives Information Provided: No Patient : No Physical Exam 2 Vital Signs: Vital Signs: Last Vital Signs Temp 98.5 F 06/27/23 20:48 Pulse 85 06/27/23 22:35 Resp 17 06/27/23 22:35 BP 146/88 H 06/27/23 22:35 Pulse Ox 97 06/27/23 22:35 O2 Del Method Room Air 06/27/23 22:35 BMI result Body Mass Index 33.8 Course Course Course Narrative: CYRIL- 15:35pm - 37yoF presenting to the ER with complaints of suprapubic abdominal cramping over her ovaries and heavy vaginal bleeding over the past 10 days. Reports that she called her OBGYN and they told her to come to the ER for blood work and ultrasound. She reports she has an IUD in place. She denies any chest pain, shortness of breath, dizziness, thoughts of STIs, dysuria, abnormal vaginal discharge, diarrhea constipation or any other symptoms complaints or concerns. Plan: Labs, ovarian ultrasound and UA. Patient is sent back to the waiting room to be evaluated in the ED or [facility]. Medical Decision Making Lab Data 06/27/23 20:10 06/27/23 20:10 Labs: Lab Results 06/27/23 Range/Units 20:10 WBC 11.0 H (4.8-10.8) X10*3/uL RBC 5.08 (4.20-5.50) X10*6/uL Hgb 13.2 (12.0-16.0) g/dl Hct 41.1 (37.0-47.0) % MCV 80.9 (80.0-98.0) fL MCH 26.0 L (27.0-33.0) pg MCHC 32.1 (31.0-35.0) g/dl RDW 15.0 (11.0-16.0) % Plt Count 269 (160-400) X10*3/uL MPV 9.7 (9.4-12.3) fL Immature Gran % (Auto) 0.3 (0.0-0.4) % Neut % (Auto) 60.6 (45-73) % Lymph % (Auto) 29.8 (20-40) % [place] % (Auto) 5.7 (2-11) % Eos % (Auto) 3.2 (0-4) % Baso % (Auto) 0.4 (0-2) % Lymph # (Auto) 3.3 (1.2-4.9) X10*3/uL [place] # (Auto) 0.6 (0.1-1.2) X10*3/uL Eos # (Auto) 0.4 (0.0-0.4) X10*3/uL Baso # (Auto) 0.0 (0.0-0.2) X10*3/uL Abs Immat Gran (auto) 0.03 (0.00-0.03) X10*3/uL Absolute Neuts (auto) 6.7 (2.0-8.3) x10*3/uL Absolute Nucleated RBC 0.000 (0.0-0.012) X10*3/uL Nucleated RBC % (auto) 0.0 (0.0-0.2) /100WBC PT 10.5 L (11.1-13.3) SEC INR 0.9 (0.9-1.1) Sodium 140 (135-145) mmol/L Potassium 3.8 (3.3-5.1) mmol/L Chloride 106 (96-108) mmol/L Carbon Dioxide 25 (22-29) mmol/L Anion Gap 13 (12-20) BUN 5 L (9-16) mg/dL Creatinine 0.73 (0.5-1.4) mg/dL Estim Creat Clear Calc 95.5 Estimated GFR > 60 Random Glucose 164 H (60-115) mg/dL Calcium 9.2 (8.4-10.2) mg/dL Magnesium 2.2 (1.6-2.6) mg/dL Total Bilirubin 0.3 (0.0-1.0) mg/dL AST 16 (5-31) U/L ALT 20 (0-31) U/L Alkaline Phosphatase 113 (39-117) U/L Total Protein 7.1 (6.5-8.0) g/dL Albumin 4.3 (3.5-5.0) g/dL Beta HCG, Quant < 2 mIU/mL Discharge Plan Discharge Clinical Impression: Dysfunctional uterine bleeding Patient Disposition: Home, Self-Care Instructions: Dysfunctional Uterine Bleeding (ED) Prescriptions: No Action ibuprofen 800 mg tablet 800 mg PO Q8H PRN (Reason: pain) Qty: 14 0RF Jardiance 10 mg tablet 1 tab PO QAM lisinopril 20 mg tablet 20 mg PO DAILY atorvastatin 10 mg tablet 10 mg PO DAILY metformin 500 mg tablet 1,000 mg PO BID clotrimazole-betamethasone 1-0.05 % cream 1 appl topical DAILY hydrochlorothiazide 12.5 mg tablet 12.5 mg PO DAILY Citrucel 500 mg tablet 500 mg PO DAILY Qty: 30 2RF Rx Instructions: take it with full glass of water Referrals: Cordell Capone MD [Physician] - 06/30/23 Interventions: ED Discharge Assessment Last Done: 06/27/23 23:22 Discharge Date/Time: 06/27/23 23:23
[2023-06-27 20:22] LABS: MANUAL DIFF FLAG NO
[2023-06-27 20:23] LABS: Basophils Percent Auto 0.4 % (0-2); Eosinophils Absolute Auto 0.4 X10*3/uL (0.0-0.4); Eosinophils Percent Auto 3.2 % (0-4); Hematocrit 41.1 % (37.0-47.0); Hemoglobin 13.2 g/dl (12.0-16.0); Imm Gran Abs Auto 0.03 X10*3/uL (0.00-0.03); Imm Gran Pct Auto 0.3 % (0.0-0.4); Lymphocytes Absolute Auto 3.3 X10*3/uL (1.2-4.9); Lymphocytes Percent Auto 29.8 % (20-40); Mean Corpuscular HGB Conc 32.1 g/dl (31.0-35.0); Mean Corpuscular Volume 80.9 fL (80.0-98.0); Mean Platelet Volume 9.7 fL (9.4-12.3); Monocytes Absolute Auto 0.6 X10*3/uL (0.1-1.2); Monocytes Percent Auto 5.7 % (2-11); Neutrophils Absolute Auto 6.7 x10*3/uL (2.0-8.3); Neutrophils Percent Auto 60.6 % (45-73); Platelet Count 269 X10*3/uL (160-400); Red Blood Count 5.08 X10*6/uL (4.20-5.50)
[2023-06-27 20:28] LABS: INTERNATIONAL NORM RATIO 0.9 (0.9-1.1); Prothrombin Time 10.5 SEC (11.1-13.3)
[2023-06-27 20:34] LABS: Alanine Aminotransferase 20 U/L (0-31); Albumin Level 4.3 g/dL (3.5-5.0); Alkaline Phosphatase 113 U/L (39-117); Anion Gap 13 (12-20); Aspartate Amino Transferase 16 U/L (5-31); Bilirubin Total 0.3 mg/dL (0.0-1.0); Blood Urea Nitrogen 5 mg/dL (9-16); Calcium 9.2 mg/dL (8.4-10.2); Carbon Dioxide 25 mmol/L (22-29); Chloride 106 mmol/L (96-108); Creatinine Clr Calc Pharmacy 95.5; Estimated Glomerular Filt Rate > 60; Glucose Random 164 mg/dL (60-115); Magnesium 2.2 mg/dL (1.6-2.6); Potassium 3.8 mmol/L (3.3-5.1); Sodium 140 mmol/L (135-145); Total Protein 7.1 g/dL (6.5-8.0)
[2023-06-27 20:43] LABS: HCG Quantitative < 2 mIU/mL
[2023-06-27 20:48] VITALS: BP 148/81; PULSE 83; RESP 18; TEMP 36.9; O2SAT 98
--- NOTE | 2023-06-27 22:31 | ED.FEMALEGU ---
HPI - Female Genitourinary General Chief complaint: Vaginal Bleeding Stated complaint: Referred by PCP - vaginal bleeding 2 weeks Time Seen by Provider: 06/27/23 21:25 History of Present Illness HPI Narrative: Patient is a 37-year-old female presented today with having vaginal bleeding for the last 10 days. Patient claims that she is soaking 3 pads a day. She has an IUD in place. Patient denies any fever chills. Denies any coughing congestion upper respiratory symptoms. There is no rectal bleeding. Patient denies any nausea vomiting. Has a history of high cholesterol. Has a history of diabetes. Patient from home. Related Data Home Medications Medication Instructions Recorded Confirmed atorvastatin 10 mg tablet 10 mg PO DAILY 08/03/21 09/10/21 clotrimazole-betamethasone 1 1 appl topical DAILY 08/03/21 09/10/21 %-0.05 % topical cream hydrochlorothiazide 12.5 mg tablet 12.5 mg PO DAILY 08/03/21 09/10/21 lisinopril 20 mg tablet 20 mg PO DAILY 08/03/21 09/10/21 metformin 500 mg tablet 1,000 mg PO BID 08/03/21 09/10/21 empagliflozin 10 mg tablet 1 tab PO QAM 08/17/21 09/10/21 (Jardiance) Previous Rx's Medication Instructions Recorded ibuprofen 800 mg tablet 800 mg PO Q8H PRN pain #14 tabs 11/24/20 methylcellulose (laxative) 500 mg 500 mg PO DAILY #30 tabs 10/08/21 tablet (Citrucel) Allergies Allergy/AdvReac Type Severity Reaction Status Date / Time No Known Allergies Allergy Verified 06/27/23 15:30 [No Known Allergies*] Review of Systems Review of Systems: Positive vaginal bleeding PMFSH Past Medical History Onset Date is defined in the Problem List Problems that require an onset date and time if occurred within 24 hrs of arrival to the ED Aortic Dissection and Rupture; Neurologic impairment; Cardiopulmonary Arrest; Endotracheal Intubation; Insertion or Replacement of Mechanical Circulatory Assist Device Medical History Diverticulosis Migraines History of kidney stones Obesity Anemia Diabetes Elevated cholesterol HTN (hypertension) Surgical History Hx of colonoscopy History of dilatation and curettage History of lithotripsy History of renal stent History of tubal ligation History of section Family History Family History Father Renal failure Hypertension CVD (cardiovascular disease) Diabetes Mother Hypertension Arthritis Depression Maternal Grandmother Stroke Maternal Grandfather No problems noted. Paternal Grandfather Cancer Daughter In good health Daughter In good health Social History Social History Alcohol intake: never Patient Tobacco Use Status: Former Tobacco user Quit Date: 11 yrs ago Smoked in Last 30 Days: No Use of substances other than those prescribed or required for medical reasons: No Advance Directives: No Advance Directives Information Provided: No Patient : No Physical Exam Vital Signs: Vital Signs: Last Vital Signs Temp 98.5 F 06/27/23 20:48 Pulse 85 06/27/23 22:35 Resp 17 06/27/23 22:35 BP 146/88 H 06/27/23 22:35 Pulse Ox 97 06/27/23 22:35 O2 Del Method Room Air 06/27/23 22:35 BMI result Body Mass Index 33.8 Appearance: Alert. Oriented X3. No acute distress. Eyes: Pupils equal, round and reactive to light. ENT: Pharynx normal. Neck: Normal inspection. Neck supple. No lymph nodes noted. No crepitus CVS: Normal heart rate and rhythm. Pulses normal. Normal S1 and S2 Respiratory: No respiratory distress. Breath sounds normal. No Wheezing. No rales Abdomen: Soft and nontender. No rigidity. No distention. good BS x4 Skin: Skin warm and dry. Normal skin color. Normal skin turgor. Extremities: No lower extremity edema. Neurovascular intact to all extremities. No Lacerations. No Rash Neuro: Oriented X 3. No motor deficit. No sensory deficit. Moving all extermities. No slurred speech Medical Decision Making Medical Decision Making MDM Narrative: Patient's test was negative. No related issues. Patient's urine showed no signs of infection. No evidence for UTI. An ultrasound of the pelvis was done. There is an IUD that is in place. There is no evidence for torsion. Patient well-appearing no distress. Neurologically intact. Is hungry and is eating [employer]. Will discharge patient home. Close follow-up with agency legal counsel on an outpatient basis. Her hemoglobin is 13 no evidence for anemia her electrolytes are consistent with diabetes but no evidence for DKA Differential Diagnosis Differential Diagnoses: The differential diagnosis associated with the presentation includes Diabetes, misplaced IUD, ovarian torsion Admission/Observation Consideration of admission/observation: Escalation of care including admission/observation considered No need to admit as patient well-appearing Lab Data MDM Lab Attestation statement: I reviewed the patient's lab results. 06/27/23 20:10 06/27/23 20:10 Labs: Lab Results 06/27/23 Range/Units 20:10 WBC 11.0 H (4.8-10.8) X10*3/uL RBC 5.08 (4.20-5.50) X10*6/uL Hgb 13.2 (12.0-16.0) g/dl Hct 41.1 (37.0-47.0) % MCV 80.9 (80.0-98.0) fL MCH 26.0 L (27.0-33.0) pg MCHC 32.1 (31.0-35.0) g/dl RDW 15.0 (11.0-16.0) % Plt Count 269 (160-400) X10*3/uL MPV 9.7 (9.4-12.3) fL Immature Gran % (Auto) 0.3 (0.0-0.4) % Neut % (Auto) 60.6 (45-73) % Lymph % (Auto) 29.8 (20-40) % [place] % (Auto) 5.7 (2-11) % Eos % (Auto) 3.2 (0-4) % Baso % (Auto) 0.4 (0-2) % Lymph # (Auto) 3.3 (1.2-4.9) X10*3/uL [place] # (Auto) 0.6 (0.1-1.2) X10*3/uL Eos # (Auto) 0.4 (0.0-0.4) X10*3/uL Baso # (Auto) 0.0 (0.0-0.2) X10*3/uL Abs Immat Gran (auto) 0.03 (0.00-0.03) X10*3/uL Absolute Neuts (auto) 6.7 (2.0-8.3) x10*3/uL Absolute Nucleated RBC 0.000 (0.0-0.012) X10*3/uL Nucleated RBC % (auto) 0.0 (0.0-0.2) /100WBC PT 10.5 L (11.1-13.3) SEC INR 0.9 (0.9-1.1) Sodium 140 (135-145) mmol/L Potassium 3.8 (3.3-5.1) mmol/L Chloride 106 (96-108) mmol/L Carbon Dioxide 25 (22-29) mmol/L Anion Gap 13 (12-20) BUN 5 L (9-16) mg/dL Creatinine 0.73 (0.5-1.4) mg/dL Estim Creat Clear Calc 95.5 Estimated GFR > 60 Random Glucose 164 H (60-115) mg/dL Calcium 9.2 (8.4-10.2) mg/dL Magnesium 2.2 (1.6-2.6) mg/dL Total Bilirubin 0.3 (0.0-1.0) mg/dL AST 16 (5-31) U/L ALT 20 (0-31) U/L Alkaline Phosphatase 113 (39-117) U/L Total Protein 7.1 (6.5-8.0) g/dL Albumin 4.3 (3.5-5.0) g/dL Beta HCG, Quant < 2 mIU/mL Independent Interpretation I performed an independent interpretation of an: Ultrasound Radiology Impression Discussion of test interpretation with radiology: I have reviewed the radiologist's reading. External Record Review External record reviewed: Office record (From OBGYN reviewed) Prescription Management No need for additional pain pain meds or antibiotic Discharge Plan Discharge Clinical Impression: Dysfunctional uterine bleeding Patient Disposition: Home, Self-Care Instructions: Dysfunctional Uterine Bleeding (ED) Prescriptions: No Action ibuprofen 800 mg tablet 800 mg PO Q8H PRN (Reason: pain) Qty: 14 0RF Jardiance 10 mg tablet 1 tab PO QAM lisinopril 20 mg tablet 20 mg PO DAILY atorvastatin 10 mg tablet 10 mg PO DAILY metformin 500 mg tablet 1,000 mg PO BID clotrimazole-betamethasone 1-0.05 % cream 1 appl topical DAILY hydrochlorothiazide 12.5 mg tablet 12.5 mg PO DAILY Citrucel 500 mg tablet 500 mg PO DAILY Qty: 30 2RF Rx Instructions: take it with full glass of water Referrals: Cordell Capone MD [Physician] - 06/30/23
[2023-06-27 22:35] VITALS: BP 146/88; PULSE 85; RESP 17; O2SAT 97
== END 2023-06-27 23:23 | disposition home or self-care (01) ==
PROVIDERS: Physician Assistant Medical; Emergency Provider Emergency Medicine Emergency Medical Services; PCP Nurse Practitioner Primary Care
DX: N93.8 Other specified abnormal uterine and vaginal bleeding (principal); E11.9 Type 2 diabetes mellitus without complications; I10 Essential (primary) hypertension; E78.5 Hyperlipidemia, unspecified; Z79.02 Long term (current) use of antithrombotics/antiplatelets; Z79.84 Long term (current) use of oral hypoglycemic drugs; Z79.899 Other long term (current) drug therapy
CPT/HCPCS: 36415; 76830; 76856; 80053; 83735; 84702; 85025; 85610; 93975; 99284

== ENCOUNTER 2023-12-23 10:07 | Outpatient (REF) | payer MEDICAID, SELFPAY ==
--- NOTE | ~2023-12-23 | XR_ITS ---
EXAMINATION: XR HAND, LEFT CLINICAL INFORMATION: Left index finger pain, atraumatic. COMPARISON: None available. TECHNIQUE: PA, lateral, and oblique views of the left hand. FINDINGS: Bone mineralization is normal. Moderate degenerative changes in the first carpometacarpal joint with joint space narrowing and hypertrophic change. No displaced fracture appreciated. XR/XR hand LT min 3V IMPRESSION: 1. Moderate degenerative changes first carpometacarpal joint. 2. No displaced fracture. Recommend follow-up imaging in 10-14 days if fracture is suspected.
== END 2023-12-23 10:08 | disposition home or self-care (01) ==
LOC: HO.HHCX 10:07
PROVIDERS: Visit Provider Nurse Practitioner Primary Care
DX: M79.645 Pain in left finger(s) (principal)
CPT/HCPCS: 73130

== ENCOUNTER 2024-06-29 12:33 | Outpatient (REF) | payer MEDICAID, SELFPAY ==
--- OUTSIDE RECORDS SUMMARY | 2024-06-29 14:09 | XMS_ITS | Encounter Summary ---
Author Organization [employer] Address [address] [place] [address] Care Team Providers Care Care Partner Name Role Phone Misti Alcocer LORET[place] Primary Care Provider [phone] Encounter Details Date Type Department Care Team (Latest Contact Info) Description 06/29/2024 Travel Social History Tobacco Use Types Packs/Day Years Used Date Smoking Tobacco: Former Cigarettes Q uit: 08/27/2010 Smokeless Tobacco: Never Alcohol Use Standard Drinks/Week Comments Not Currently 0 (1 standard drink = 0.6 oz pur e alcohol) Depression Answer Date Recorded Patient Health Questionnaire-9 Score 0 08/12/2023 Patient Health Questionnaire-9 Score 0 08/12/2023 Last PHQ-9: Questionnaire Data Not on file 0 08/12/2023 Housing Stability Answer Date Recorded What is your housing situation today? I have evgeny harper 08/04/[address] you li ve. Do you have problems with any of the following? None of the above 08/04/2023 Food Insecurity Answer Date Recorded Within the past 12 months, y ou worried that your food would run out before you got money to buy more: Never True 08/04/2023 Within the past 12 months,th e food you bought just didn't last and you didn't have enough money to get more: Never True Transportation Answer Date Recorded In the past 12 months, has l ack of transportation kept you from medical appts, meetings, work or from getting things needed for daily living? No 08/04/2023 Utilities Answer Date Recorded In the past 12 months, has t he electric, gas, oil or water company threatened to shut off services in your home? No 08/04/2023 Depression Answer Date Recorded Patient Health Questionnaire-2 Score 0 08/12/2023 Internet Access Answer Date Recorded Internet Access Q1 Yes 02/09/2024 Internet Access Q2 Not on file 02/09/2024 Comments Unknown Sex and Gender Information Value Date Recorded Sex Assigned at Female 04/08/2022 10:18 AM EDT Legal Sex Female 10:18 AM EDT Gender Identity Female 04/08/2022 10:18 AM EDT Sexual Orientation Straight 04/08/2022 10 :18 AM EDT documented as of this encounter Plan of Treatment Not on file documented as of this encounter Visit Diagnoses Not on filedocumented in this encounter Additional Health Concerns Assessment Noted Time PHQ-9 Depression Total Score: 0 08/12/19 24 11:08 AM EST documented as of this encounter Care Teams Care Partner Relationship Specialty Start Date End Date iMsti Alcocer ANP [address] [place] [address] PCP - General Family Medicine 01/29/21 documented as of this encounter
--- OUTSIDE RECORDS SUMMARY | 2024-06-29 14:09 | XMS_ITS | Encounter Summary ---
Author Organization [employer] Address [address] [place] [address] Care Team Providers Care Orthopedic Dentist Name Role Phone Misti Alcocer Primary Care Provider [phone] Reason for Referral * Medications - Closed Specialty Diagnoses / Procedures Referred By Contallison t Referred To Contact Diagnoses Type 2 diabetes mellitus with hyperlipidemia (CMS/HCC) ([facility]) Misti Alcocer ANP [address] [place] [address] Phone: tel: fax: Referral ID Status Reason Start Date Expiration Date Visits Re quested Visits Authorized [id number] Closed 1 1 Reason for Visit * Reason Comments Diabetes Encounter Details Date Type Department Care Team (Latest Contact Info) Description 06/29/2024 11:30 AM EST Office Visit [facility] [address], [place] [phone] Misti Alcocer ANP [address], [place] [phone] Encounter for immunization (Primary Dx); Type 2 diabetes mellitus with hyperlipidemia (CMS/HCC) (CMS/HCC) Social History Tobacco Use Types Packs/Day Years Used Date Smoking Tobacco: Former Cigarettes Q uit: 08/27/2010 Smokeless Tobacco: Never Tobacco Cessation:Counseling Given: Not Answered Alcohol Use Standard Drinks/Week Comments Not Currently [...] AM EDT documented as of this encounter Last Filed Vital Signs Vital Sign Reading Time Taken Comments Blood Pressure 125/80 06/29/2024 11:57 AM EST Pulse 97 06/29/2024 11:57 AM EST Temperature 36.3 ??C (97.4 ??F) 06/29/2024 11:[address] Respiratory Rate 14 06/29/2024 11:57 AM EST Oxygen Saturation 98% 06/29/2024 11:57 AM EST Inhaled Oxygen Concentration - - Weight 79.8 kg (176 lb) 06/29/2024 11:57 AM EST Height - - Body Mass Index 35.55 03/23/2024 10:51 AM EDT documented in this encounter Progress Notes * LORETTA Velazquez - 06/29/2024 11:30 AM EST Subjective Patient ID: Jonathan Boyd is a 38 y.o. female who presents for Diabetes. HPI Lab Results Component Value Date HGBA1C 7.5 (A) 06/29/2024 HGBA1C 7.6 (A) 03/23/2024 HGBA1C 7.5 (A) 12/22/2023 HGBA1C 8.0 (A) 08/12/2023 Doing well with diabetes though has not had Jardiance for months. She is not sure why. She does have glucometer at home and does not need any supplies. LMP: 7 mos ago Sexually active BCM: BTL, has IUD for heavy bleeding Lives w/ 2 kids, both teenagers, She works as a [employer]. She also drives [employer]. Non-smoker, former smoker - quit >10 yrs ago Review of Systems Constitutional: Negative for chills and fever. HENT: Negative for sore throat. Respiratory: Negative for cough and shortness of breath. Cardiovascular: Negative for chest pain. Gastrointestinal: Negative for constipation and diarrhea. Endocrine: Negative for polydipsia, polyphagia and polyuria. Genitourinary: Negative for dysuria. Objective BP 125/80 (BP Location: Left arm, Patient Position: Sitting, BP Cuff Size: Adult) Pulse97 Temp 97.4 ??F (36.3 ??C) (Temporal) Resp 14 Wt 176 lb (79.8 kg) SpO2 98% BMI 35.55 kg/m?? Physical Exam Vitals reviewed. Constitutional: General: She is not in acute distress. Appearance: Normal appearance. She is not toxic-appearing. HENT: Head: Normocephalic and atraumatic. Eyes: General: No scleral icterus. Extraocular Movements: Extraocular movements intact. Pupils: Pupils are equal, round, and reactive to light. Cardiovascular: Rate and Rhythm: Normal rate and regular rhythm. Pulmonary: Effort: Pulmonary effort is normal. Neurological: Mental Status: She is alert. Psychiatric: Mood and Affect: Mood normal. Behavior: Behavior normal. Assessment/Plan Diagnoses and all orders for this visit: Encounter for immunization - FLU VACCINE TRIVALENT (Fluarix) 6 mo + Type 2 diabetes mellitus with hyperlipidemia (CMS/HCC) (CMS/HCC) A1c is stable but remains above goal. Will increase semaglutide today to 1 mg weekly. She could nottolerate Trulicity due to GI side effects but has been tolerating semaglutide well. Continue metformin 1 g twice daily. Formally discontinue Jardiance today as she has not had it for months. Can consider restarting as needed. Consider increasing atorvastatin with next lipid panel. Encouraged lifestyle interventions as below. Referred for eye exam in September 2023 -no DM ocular complications 02/12/2024 Foot exam normal 12/22/2023 Lifestyle recommendations to improve heart health & lower cholesterol: be as active as able, ideally exercise 150min moderate intensity or 75min vigorous intensity weekly; increase intake of vegetables, fruits, whole grains, fish. Try to minimize intake of sugary or greasy food and drink. Use olive oil or vegetable, peanut, canola, or similar oil for cooking. Decrease or stop drinking alcoholif you drink, quit/decrease smoking if you smoke. - POCT Glucose - POCT HGB A1C - semaglutide (Ozempic) 4 MG/3ML solution pen-injector; Inject 1 mg under the skin 1 (one) time perweek. documented in this encounter Plan of Treatment Not on file documented as of this encounter Procedures Procedure Name Priority Date/Time Associated Diagnosis Comments POCT GLYCATED HEMOGLOBIN, TOTAL Routine 06/29/2024 12:02 PM EST Type 2 diabetes mellitus with hyperlipidemia ([facility]) ([facility]) POCT GLUCOSE Routine 06/29/2024 12:01 PM EST Type 2 diabetes mellitus with hyperlipidemia ([facility]) ([facility]) documented in this encounter Results * (ABNORMAL) POCT HGB A1C (06/29/2024 12:02 PM EST) Hemoglobin A1C 7.5(A) 4.0 - 6.0 % QC Media Lot # [id number] Lot# Expiration Date ,600 Blood 06/29/2024 12:0 2 PM EST Misti BURGOS POINT OF CARE TEST ENTER/EDIT OR DERABLES Final Result * POCT Glucose (06/29/2024 12:01 PM EST) Glucose Blood, POC 179 60 - 200 mg/dL QC Media Lot # [id number] Lot# Expiration Date 438 Blood Capillary blood specimen / Unknown 06/29/2024 12:01 PM EST Misti BURGOS POINT OF CARE TEST ENTER/EDIT OR DERABLES Final Result documented in this encounter Visit Diagnoses Diagnosis Encounter for immunization- Primary Type 2 diabetes mellitus with hyperlipidemia (CMS/HCC) (CMS/HCC) documented in this encounter Additional Health Concerns Assessment Noted Time PHQ-9 Depression Total Score: 0 08/12/19 24 11:08 AM EST documented as of this encounter Care Teams Orthopedic Dentist Relationship Specialty Start Date End Date Misti Alcocer ANP [address] [place] [id number] PCP - General Family Medicine 01/29/21 documented as of this encounter
--- OUTSIDE RECORDS SUMMARY | 2024-06-29 14:09 | XMS_ITS | Clinical Summary ---
Author Organization [employer] Address [address] [place] [address] 7t [place] [address] Care Team Providers Care Councilman Name Role Phone Misti Alcocer LORETTA Primary Care Provider [phone] Allergies Active Allergy Reactions Criticality Noted Date Comments Dulaglutide Diarrhea Medium 04/19/2021 Medications * This document contains information received from the source organization and may not represent a complete record from that organization. Continuous Blood Gluc Abalone Diver (FreeStyle Alfonzo 2 Collins) deviceIndications :Type 2 diabetes mellitus with hyperlipidemia (CMS/HCC) ([facility]) Scan sensor every 6 hours 1 each 08/12/19 24 Active Continuous Blood Gluc Sensor (FreeStyle Alfonzo 2 Sensor) miscIndications:T ype 2 diabetes mellitus with hyperlipidemia (CMS/HCC) ([facility]) Apply 1 sensor every 14 days 2 each 08/12/19 24 Active glucose blood (FreeStyle Precision Jeffrey Test) test stripIndications: Type 2 diabetes mellitus with hyperlipidemia (CMS/HCC) ([facility]) Use to test blood sugar 5 times daily 100 each 12 08/12/19 24 025 Active Diclofenac Sodium (Voltaren) 1 % gelIndications:Fi nger pain, left Apply up to 4x/d to affected joint(s) for pain/swelling 100 g 2 12/22/19 24 Active metFORMIN (Glucophage) 500 MG tabletIndications :Hypertension associated with diabetes (CMS/HCC) (CMS/[facility]) TAKE 2 TABLETS BY MOUTH TWICE DAILY 360 tablet 1 05/24/20 24 Active atorvastatin (Lipitor) 10 MG tabletIndications :Hypertension associated with diabetes (CMS/HCC) (CMS/[facility]) TAKE 1 TABLET BY MOUTH EVERY DAY 90 tablet 1 05/24/20 24 Active lisinopril 40 MG tabletIndications :Hypertension associated with diabetes (CMS/HCC) (CMS/HCC) TAKE 1 TABLET BY MOUTH EVERY DAY 90 tablet 1 05/24/20 24 Active semaglutide (Ozempic) 4 MG/3ML solution pen-injectorIndic ations:Type 2 diabetes mellitus with hyperlipidemia (CMS/HCC) (CMS/HCC) Inject 1 mg under the skin 1 (one) time per week. 3 mL 06/29/19 25 Active Jardiance 25 MGIndications:Hyp ertension associated with diabetes (CMS/HCC) (CMS/HCC) TAKE 1 TABLET BY MOUTH EVERY MORNING 90 tablet 1 06/19/19 23 025 Disconti nued(The rapy complete d) semaglutide (Ozempic) 2 MG/1.5ML solution pen-injectorIndic ations:Type 2 diabetes mellitus with hyperlipidemia (CMS/HCC) (CMS/HCC) Inject 0.5mg once weekly subcutaneously 1 each 03/23/20 24 025 Disconti nued(Dos e adjustme nt) Hospital, Clinic, or Other Facility Administered Medication Ordered Dose Route Frequency Start Date End Date Status ibuprofen tablet 800 mgIndications:Visit for insertion of intrauterine device 800 mg PO Once 08/15/2022 Active Active Problems Problem Noted Date Diagnosed Date Anxiety 10/18/2022 Anemia 09/12/2022 Type 2 diabetes mellitus with hyperlipidemia (CM S/HCC) 09/12/2022 Healthcare maintenance 09/12/2022 Overview (09/12/2022): Pap NIL/HPV neg 05/2021 Mammo not yet due Colonoscopy: done d/t fam h/o early colon ca - 09/14/2021, hyperplastic polyp, repeat 5 years BMD: not yet due HCV Screen: 11/2020 negative HIV Screen: 11/2020 negative LDCT: young, quit smoking 2010 Immunizations: Offer PCV20 at follow-up Dyslipidemia 06/16/2018 Hypertension associated with diabetes (CMS/HCC) 04/06/2018 Obesity (BMI 30-39.9) 04/06/2018 Encounters Date Type Department Care Team Description 06/29/2024 11:30 AM EST Office Visit [facility] [address] [place] [address] Misti Alcocer ANP Encounter for immunization (Primary Dx); Type 2 diabetes mellitus with hyperlipidemia (CMS/HCC) ([facility]) 06/29/2024 Telephone [facility] [address] [place] [address] Misti Alcocer ANP 06/29/2024 Travel 06/17/2024 Patient Outreach [facility] [address], [place] [phone] Misti Alcocer ANP Pre-visit Planning (Pre-visit planning - LVM ) 05/23/2024 Refill [facility] [address] [place], [place] [phone] Misti Alcocer ANP Hypertension associated with diabetes (CMS/HCC) ([facility]/HCC) 05/03/2024 Telephone [facility] [address] [place] [address] Joelle Menjivar [place] June recall from Last 3 Months Immunizations Name Administration Dates Next Due INFLUENZA VACCINE QUADRIVALE NT RECOMBINANT PRESERVATIVE FREE RIV4 07/08/2019 Influenza injectable quadriv alent IIV4 with preservative 04/06/2018,05/24/2016 Influenza injectable quadrivalent preservative f ree 02/22/2022,04/19/2021 Influenza, seasonal, injectable, preservative fr ee 06/29/2024 Moderna Covid-19 Vaccine 12+ 05/29/2021 Pneumococcal Conjugate PCV 20 03/23/2024 Tdap 02/20/2021,05/24/2016 Family History Medical History Relation Name Comments Diabetes Father Glaucoma Father Relation Name Status Comments Father Social History Tobacco Use Types Packs/Day Years [...] Orientation Straight 04/08/2022 10 :18 AM EDT Last Filed Vital Signs Vital Sign Reading Time Taken Comments Blood Pressure 125/80 06/29/2024 11:57 AM EST Pulse 97 06/29/2024 11:57 AM EST Temperature 36.3 ??C (97.4 ??F) 06/29/2024 11:[address] Respiratory Rate 14 06/29/2024 11:57 AM EST Oxygen Saturation 98% 06/29/2024 11:57 AM EST Inhaled Oxygen Concentration - - Weight 79.8 kg (176 lb) 06/29/2024 11:57 AM EST Height 149.9 cm (4' 11 ) 03/23/2024 10:51 AM EDT Body Mass Index 35.55 03/23/2024 10:51 AM EDT Plan of Treatment Health Maintenance Due Date Last Done Comments CT Colonography 1987 FIT DNA/Cologuard 1987 FIT 1987 FOBT 1987 Sigmoidoscopy 1987 Family Planning (PISQ) 11/17/2002 Hepatitis B Vaccines (1 of 3 - 19+ 3-dose series) 11/17/2006 Diabetes: Urine Protein Screening 07/06/2022 07/06/2021 Pap Smear 05/21/2024 05/21/2021, 05/21/2021 SDOH Screening 08/04/2024 08/04/2023 Alcohol/Substance Use Screening 08/11/2024 08/12/2023 Depression Screening 08/11/2024 08/12/2023, 08/12/19 Diabetes: Hemoglobin A1C 09/27/2024 025, 03/23/2024, 12/22/2023, Additional history exists Diabetes: Foot Exam 12/21/2024 12/22/2023, 12/22/2023, 12/22/2023, Additional history exists COVID-19 Vaccine ( season) 2025 05/29/2021, 11/06/2020, 10/09/2020 Postponed from 02/08/2024 (Patient Refused) Lipid Panel 06/23/2025 06/23/2024, 12/04/2020 Tobacco Screening 06/29/2025 06/29/2024 Eye Exam 02/11/2026 02/12/2024, 09/0 10/2023, 02/12/2024, Additional history exists Cervical Cancer Screening 08/15/2026 HPV/Cotest 08/15/2026 08/15/2021, 03/0 02/2022, 05/21/2021 Colonoscopy 08/23/2026 Colorectal Cancer Screening 08/23/2026 DTaP/Tdap/Td Vaccines (3 - Td or Tdap) 02/20/2031 02/20/2021, 05/24/2016 Zoster Vaccines (1 of 2) 11/17/2037 RSV Patients and Patients Aged 60 years or older (1 - 1-dose 75+ series) 11/17/2062 Hepatitis C Screening 06/09/2098 12/04/2020 HIV Screening Completed 12/04/2020 Pneumococcal Vaccine: Pediatrics (0 to 5 Years) and At-Risk Patients (6 to 64 Years) Completed 03/23/2024 Influenza Vaccine Completed 06/29/2024, , 04/19/2021, Additional history exists HIB Vaccines Aged Out No longer eligi ble based on patient's age to complete this topic HPV Vaccines Aged Out No longer eligi ble based on patient's age to complete this topic Hepatitis A Vaccines Aged Out No long er eligible based on patient's age to complete this topic IPV Vaccines Aged Out No longer eligi ble based on patient's age to complete this topic Meningococcal Vaccine Aged Out No jenae owen eligible based on patient's age to complete this topic RSV under 20 months Aged Out No longe r eligible based on patient's age to complete this topic Rotavirus Vaccines Aged Out No longer eligible based on patient's age to complete this topic Procedures Procedure Name Priority Date/Time Associated Diagnosis Comments POCT GLYCATED HEMOGLOBIN, TOTAL Routine 06/29/2024 12:02 PM EST Type 2 diabetes mellitus with hyperlipidemia (CMS/HCC) (CMS/HCC) POCT GLUCOSE Routine 06/29/2024 12:01 PM EST Type 2 diabetes mellitus with hyperlipidemia (CMS/HCC) (CMS/HCC) LIPID PANEL, STANDARD Routine 06/23/2024 10:57 AM EST Hypertension associated with diabetes (CMS/HCC) (CMS/HCC) CBC WITH AUTO DIFFERENTIAL Routine 06/23/2024 10:07 AM EST Menorrhagia with regular cycle ZZZ HISTORICAL HPV E6/E7 RFLX JOE 16 18/45 Routine 08/15/2021 12:16 PM EST ALBUMIN, RANDOM URINE W/CREATININE Routine 07/06/2021 1:03 PM EST PAP SMEAR Routine 05/21/2021 12:00 AM EST ZZZ HISTORICAL HEPATITIS C AB W/REFL TO HCV RNA, QN, PCR Routine 12/04/2020 8:33 AM EDT HIV 1/2 ANTIGEN/ANTIBODY, FOURTH GENERATION W/RFL Routine 12/04/2020 8:33 AM EDT from Last 3 Months or Most Recently Relevant to Health Maintenance Results * (ABNORMAL) POCT HGB A1C (06/29/2024 12:02 PM EST) Hemoglobin A1C 7.5(A) 4.0 - 6.0 % QC Media Lot # [id number] Lot# Expiration Date ,026 Blood 06/29/2024 12:0 2 PM EST Misti Alcocer ANP POINT OF CARE TEST ENTER/EDIT OR DERABLES Final Result * POCT Glucose (06/29/2024 12:01 PM EST) Glucose Blood, POC 179 60 - 200 mg/dL QC Media Lot # [id number] Lot# Expiration Date ,025 Blood Capillary blood specimen / Unknown 06/29/2024 12:01 PM EST us Misti Alcocer ANP POINT OF CARE TEST ENTER/EDIT OR DERABLES Final Result * (ABNORMAL) Lipid Panel, Standard (06/23/2024 10:57 AM EST) Triglycerides 127 <150 mg/dL [facility] Comment:Desirable Triglyceri de: less than 150 mg/dLBorderline High Triglyceride 150-199 mg/dLHigh Triglyceride: 200-499 mg/dLVery High Triglyceride: greater than or equal to 5OO mg/dL Cholesterol 173 <200 mg/dL [facility] Comment:Desirable Cholestero l: less than 200 mg/dLBorderline High Cholesterol: 200-239 mg/dLHigh Cholesterol: greater than 239 mg/dL LDL Cholesterol Calculated 114(H) <100 mg/dL [facility] Comment:Desirable LDL: less than 100 mg/dLNear Optimal/Above Optimal LDL: 110- 129 mg/dLBorderline High LDL: 130-159 mg/dLHigh LDL: 160-189 mg/dLVery High LDL: greater than or equal to 190 mg/dL HDL Cholesterol 34(L) >40 mg/dL [facility] Comment:Desirable HDL: great er than 40 mg/dL Note: This HDL assay may give artificially low results in patients with liver disease. Blood Venous blood specimen / Unknown 06/23/2024 10:57 AM EST 06/23/2024 11:05 AM EST Misti Alcocer [facility] BLOOD ORDERABLES Final Resul t [facility] [address] [place] [address] [phone] * (ABNORMAL) CBC auto differential (06/23/2024 10:07 AM EST) White Blood Count 9.7 4.8 - 10.8 X10*3/uL [facility] Red Blood Count 4.97 4.20 - 5.50 X10*6/uL [facility] Hemoglobin 14.6 12.0 - 16.0 g/dl [facility] Hematocrit 41.9 37.0 - 47.0 % [facility] Mean Corpuscular Volume 84.3 80.0 - 98.0 fL [facility] Mean Corpuscular Hemoglobin 29.4 27.0 - 33.0 pg [facility] Mean Corpuscular HGB Conc 34.8 31.0 - 35.0 g/dl [facility] Red Cell Distribution Width 13.2 11.0 - 16.0 % [facility] Platelet Count 277 160 - 400 X10*3/uL [facility] Mean Platelet Volume 9.7 9.4 - 12.3 fL [facility] Neutrophils Percent Auto 57.2 45 - 73 % [facility] Imm Gran Pct Auto 0.4 0.0 - 0.4 % [facility] Lymphocytes Percent Auto 34.2 20 - 40 % [facility] Monocytes Percent Auto 7.2 2 - 11 % [facility] Eosinophils Percent Auto 0.8 0 - 4 % [facility] Basophils Percent Auto 0.2 0 - 2 % [facility] NRBC Pct Auto 0.0 0.0 - 0.2 /100WBC [facility] Neutrophils Absolute Auto 5.6 2.0 - 8.3 x10*3/uL [facility] Imm Gran Abs Auto 0.04(H) 0.00 - 0.03 X10*3/uL [facility] Lymphocytes Absolute Auto 3.3 1.2 - 4.9 X10*3/uL [facility] Monocytes Absolute Auto 0.7 0.1 - 1.2 X10*3/uL [facility] Eosinophils Absolute Auto 0.1 0.0 - 0.4 X10*3/uL [facility] Basophils Absolute Auto 0.0 0.0 - 0.2 X10*3/uL [facility] NRBC Abs Auto 0.000 0.0 - 0.012 X10*3/uL [facility] Blood Venous blood specimen / Unknown 06/23/2024 10:07 AM EST 06/23/2024 11:05 AM EST [facility] LAB BLOOD ORDERABLES Final Resul t [facility] [address] [place] [phone] * HPV E6/E7 RFLX JOE 16 18/45 (08/15/2021 12:16 PM EST) HPV 16 RNA [facility] HPV 18/45 RNA [facility] HPV E6 E7 ADD [facility] HPV mRNA E6/E7 rflx Not Detected Not Detected [facility] Comment: Methodology: [employer] Programmer-Mediated Amplification This assay detects E6/E7 viral messenger RNA (mRNA) from 14 high-risk HPV types (16,18,31,33,35,39,45,51,52,56,58,59,66,68). The analytical performance characteristics of this assay have been determined by [employer]. The modifications have not been cleared or approved by the FDA. This assay has been validated pursuant to the CLIA regulations and is used for clinical purposes. For additional information, please refer to http://education.TeleFlip.Lifeproof/faq/OYA617z9 (This link if provided for information/ educational purposes only.) THIS TEST WAS PERFORMED AT: [facility] [address] [place] [address],[address] [place], [place] ??[phone] JOANN CHEUNG MD 08/15/2021 12:1 6 PM EST Cordell Capone MD HISTORICAL/NON ORDERABLE LABS Fi nal Result Performing Organization Address [facility]/ZIP Co de Phone Number [facility] [address] * (ABNORMAL) ALBUMIN, RANDOM URINE W/CREATININE (07/06/2021 1:03 PM EST) Microalbumin Urine 10.8 See Note: mg/dL [facility] Comment: Reference Range: ?? Reference Range Not established Microalb/Creat Ratio 164(H) <30 mcg/mg creat [facility] Comment: ?? The ADA defines abnormalities in albumin excretion as follows: ?? Albuminuria Category ?Result (mcg/mg creatinine) ?? Normal to Mildly increased ?? <30 Moderately increased ? 30-299 ?? Severely increased ? > OR = 300 ?? The ADA recommends that at least two of three specimens collected within a 3-6 month period be abnormal before considering a patient to be within a diagnostic category. Creatinine, Urine 66 20 - 275 mg/dL [facility] 07/06/2021 1:03 PM EST Misti BURGOS LAB URINE ORDERABLES Final Resul t Performing Organization Address [facility] Co de Phone Number [facility] [address] * Pap Smear (05/21/2021 12:00 AM EST) Swab [facility] CYTOLOGY ORDERABLES F inal Result Performing Organization Address City/[facility]/ZIP Co de Phone Number [facility] [address] [place] [address], [place] [address] * HEPATITIS C AB W/REFL TO HCV RNA, QN, PCR (12/04/2020 8:33 AM EDT) HEPATITIS C ANTIBODY NON-REACT VERONICA NON-REACT VERONICA [facility] INDEX 0.01 <1.00 [facility] Comment: ?? HCV antibody was non-reactive. There is no laboratory ?? evidence of HCV infection. ?? In most cases, no further action is required. However, if recent HCV exposure is suspected, a test for HCV RNA (test code 15736) is suggested. ?? For additional information please refer to http://[employer]/faq/AHL93x3 (This link is being provided for informational/ educational purposes only.) ?? 12/04/2020 8:33 AM EDT us Historical Provider MD HISTORICAL/NON ORDERABLE LABS Final Result Performing Organization Address City/State/[facility] Co de Phone Number [facility] [address] * HIV 1/2 ANTIGEN/ANTIBODY,FOURTH GENERATION W/RFL (12/04/2020 8:33 AM EDT) HIV-1/2 ANTIGEN AND ANTIBODIES, 4TH GENERATION W/ REFLEX NON-REACT VERONICA NON-REACT VERONICA [facility] Comment: HIV-1 antigen and HIV-1/HIV-2 antibodies were not detected. There is no laboratory evidence of HIV infection. ?? PLEASE NOTE: This information has been disclosed to you from records whose confidentiality may be protected by state law. ??If your state requires such protection, then the state law prohibits you from making any further disclosure of the information without the specific written consent of the person to whom it pertains, or as otherwise permitted by law. A general authorization for the release of medical or other information is NOT sufficient for this purpose. ? For additional information please refer to http://[employer]/faq/UNG892 (This link is being provided for informational/ educational purposes only.) ? The performance of this assay has not been clinically validated in patients less than 2 years old. ?? 12/04/2020 8:33 AM EDT us Historical Provider LAB BLOOD ORDERABLES Dee denney Result [facility] [address] from Last 3 Months or Most Recently Relevant to Health Maintenance Insurance [facility] [id number] [place] [address] Care Teams Councilman Relationship Specialty Start Date End Date Alcocer, Misti, ANP [address] [place] [address] PCP - General Family Medicine 01/29/21
--- OUTSIDE RECORDS SUMMARY | 2024-06-29 14:09 | XMS_ITS | Encounter Summary ---
Author Organization [employer] Address [address] [facility] [address]t [place] [address] Care Team Providers Care Manager Intel Name Role Phone Misti Alcocer Primary Care Provider [phone] Reason for Visit * Reason Comments Pre-visit Planning Pre-visit planning - LVM Encounter Details Date Type Department Care Team ([facility] Contact Info) Description 06/17/2024 Patient Outreach [facility] [address] [place], [place] [phone] Misti Alcocer ANP [address] [place] [address] Pre-visit Planning (Pre-visit planning - LVM ) Social History Tobacco Use Types Packs/Day Years [...] AM EDT documented as of this encounter Progress Notes * Leila Garcia - 06/17/2024 2:15 PM EST ROSA Scanlon placed outbound call to patient to complete pre-visit planning. No answer at this time. Patient name and were not confirmed. CC left voicemail requesting return call. Direct contact information provided. documented in this encounter Plan of Treatment Not on file documented as of this encounter Visit Diagnoses Not on filedocumented in this encounter Additional Health Concerns Assessment Noted Time PHQ-9 Depression Total Score: 0 08/12/19 24 11:08 AM EST documented as of this encounter Care Teams Manager Intel Relationship Specialty Start Date End Date Misti Alcocer ANP [address] [place] [phone] PCP - General Family Medicine 01/29/21 documented as of this encounter
--- OUTSIDE RECORDS SUMMARY | 2024-06-29 14:09 | XMS_ITS | Encounter Summary ---
Author Organization [employer] Address [address] [facility] 7t [place] [address] Care Team Providers Care Binding Nicker Name Role Phone Misti Alcocer Primary Care Provider [phone] Encounter Details Date Type Department Care Team (Late st Contact Info) Description 06/29/2024 Telephone [facility] [address] [place], [place] [phone] Misti Alcocer ANP [address] [place], [place] [phone] Social History Tobacco Use Types Packs/Day Years [...] AM EDT documented as of this encounter Miscellaneous Notes * Telephone Encounter - Anne Odell - 06/29/2024 11:16 AM EST Pt pcp on insurance does not match with [facility] , fd called insurance enrollment to change pcp insurance enrollment stated they'll fix pcp to primary care provider from [facility]. documented in this encounter Plan of Treatment Not on file documented as of this encounter Visit Diagnoses Not on filedocumented in this encounter Additional Health Concerns Assessment Noted Time PHQ-9 Depression Total Score: 0 08/12/19 24 11:08 AM EST documented as of this encounter Care Teams Binding Nicker Relationship Specialty Start Date End Date Misti Alcocer ANP [address] [place] [phone] PCP - General Family Medicine 01/29/21 documented as of this encounter
--- OUTSIDE RECORDS SUMMARY | 2024-06-29 14:09 | XMS_ITS | Encounter Summary ---
Author Organization [employer] Address [address] [facility] [address]t [place] [address] Care Team Providers Care Dehydrator Name Role Phone Misti Alcocer LORETTA Primary Care Provider [phone] Encounter Details Date Type Department Care Team (Late st Contact Info) Description 06/19/2022 Orders Only [facility] [address] [place] [address] Kacey Tirado LPN Social History Tobacco Use Types Packs/Day Years Used Date Smoking Tobacco: Never Assessed Comments Unknown Sex and Gender Information Value Date Recorded Sex Assigned at Female 04/08/2022 10:18 AM EDT Legal Sex Female 10:18 AM EDT Gender Identity Female 04/08/2022 10:18 AM EDT Sexual Orientation Straight 04/08/2022 10 :18 AM EDT documented as of this encounter Plan of Treatment Not on file documented as of this encounter Procedures Procedure Name Priority Date/Time Associated Diagnosis Comments SARS COV2/INFLUENZA A/B AND RSV RNA QL NAAT Routine 01/18/2023 1:11 AM EDT BETA-HCG, QUANTITATIVE (TUMOR MARKER) Routine 01/17/2023 10:50 PM EDT COMPREHENSIVE METABOLIC PANEL Routine 01/17/2023 10:50 PM EDT documented in this encounter Results * SARS-CoV-2 RNA, Influenza A/B, and RSV RNA, Ql NAAT (01/18/2023 1:11 AM EDT) Influenza A PCR NEGATIVE Negative [facility] Influenza B PCR NEGATIVE Negative [facility] Resp Syncy Virus RNA Qual PCR NEGATIVE Negative [facility] SARS COV2 PCR NEGATIVE Negative [facility] Comment:All test results mus t be correlated with clinical findings.Negative results do not preclude SARS-CoV2, influenza Avirus, influenza B virus and/or RSV infectionand should not be used as the sole basis for treatment orother patient management decisions. Negative results must becombined with clinical observations, patient history, andepidemiological information.This test has not been evaluated for monitoring treatment ofinfection.This test has been authorized by the FDA under an EmergencyUse Authorization (EUA) for use by authorized laboratories.Testing performed on the [employer] GeneXpert utilizingreal-time RT-PCR.All SARS CoV2 and positive influenza A/B results arereported to [facility]. 01/18/2023 1:11 AM EDT 01/18/2023 1:17 AM EDT [facility] Exter nal Provider LAB MICROBIOLOGY - GENERAL ORDERABLES Final Result [facility] [address] [place] [address] [phone] * hCG, Total, Quantitative (01/17/2023 10:50 PM EDT) HCG Quantitative <2 mIU/mL [facility] Comment:Weeks post LMP Appro ximate hCG(Last Menstrual Period) Range (mIU/ml)3 - 4 weeks 9 - 1304 - 5 weeks 75 - 2,6005 - 6 weeks 850 - 20,8006 - 7 weeks 4000 - 100,2007 - 12 weeks 11,500 - 289,00713 - 16 weeks 18,300 - 137,85167 - 29 weeks (2nd trimester) 1,400 - 53,89852 - 41 weeks (3rd trimester) 940 - 60,000The Mustafa B- hCG assay is used for the early detection ofpregnancy; it cannot be used to diagnose any conditionunrelated to . If a B-hCG level is not supportedby the clinical evidence, results should be confirmed by analternative method (qualitative urine hCG, for example). 01/17/2023 10:5 0 PM EDT 01/17/2023 10:53 PM EDT us Generic External Data Provider LAB BLOOD ORDERAB LES Final Result [facility] [address] [place] [address] [phone] * (ABNORMAL) Comprehensive Metabolic Panel (01/17/2023 10:50 PM EDT) Sodium 138 135 - 145 mmol/L [facility] Potassium 3.8 3.3 - 5.1 mmol/L [facility] Chloride 108 96 - 108 mmol/L [facility] Carbon Dioxide 20(L) 22 - 29 mmol/L [facility] Anion Gap 14 12 - 20 [facility] Urea Nitrogen (BUN) 13 9 - 16 mg/dL [facility] Creatinine, Serum 0.78 0.5 - 1.4 mg/dL [facility] Creatinine Clr Calc Pharmacy 94.8 [facility] Comment:Provided height and weight: 149.86 cm,84.368 kg.eGFR (calculated from the MDRD study equation) and eCrCl(calculated from the Cockcroft-Gault equation) are based ondifferent parameters and may not yield comparable results.If eCrCl result is absurd, please check patient'sheight/weight. Estimated Glomerular Filt Rate >60 [facility] Comment:NOTE: For -Am erican individuals, multiply the result by 1.210.Chronic Kidney Disease: Estimated GFR < 60 mL/min/1.50q4Vfitui Kidney Disease: Estimated GFR < 15 mL/min/1.73m2 Glucose 111 60 - 115 mg/dL [facility] Calcium 9.6 8.4 - 10.2 mg/dL [facility] Bilirubin, Total 0.3 0.0 - 1.0 mg/dL [facility] Aspartate Amino Transferase 17 5 - 31 U/L [facility] Alanine Aminotransferase 28 0 - 31 U/L [facility] Total Protein 7.9 6.5 - 8.0 g/dL [facility] Albumin Level 4.5 3.5 - 5.0 g/dL [facility] Alkaline Phosphatase 106 39 - 117 U/L [facility] 01/17/2023 10:5 0 PM EDT 01/17/2023 10:53 PM EDT us [facility] External Provider LAB BLO OD ORDERABLES Final Result [facility] [address] [place] [address] [phone] documented in this encounter Visit Diagnoses Not on filedocumented in this encounter Care Teams Dehydrator Relationship Specialty Start Date End Date Misti Alcocer ANP [address] [place] [address] PCP - General Family Medicine 01/29/21 documented as of this encounter
[2024-06-29 14:28] LABS: Creatinine Urine 133.67 mg/dL; Microalbum/Creatinine Ratio Ur 22.4 ug/mg cr (<30)
== END 2024-06-29 12:34 | disposition home or self-care (01) ==
LOC: HO.HHCL 12:33
PROVIDERS: Visit Provider Nurse Practitioner Primary Care
DX: E11.59 Type 2 diabetes mellitus with other circulatory complications (principal); I15.2 Hypertension secondary to endocrine disorders
CPT/HCPCS: 82043; 82570

== ENCOUNTER 2025-01-12 10:15 | Outpatient (REF) | payer MEDICAID, SELFPAY ==
--- OUTSIDE RECORDS SUMMARY | 2025-01-12 10:50 | XMS_ITS | Encounter Summary ---
Author Organization [employer] Address [address] [facility] [address] [place] [address] Care Team Providers Care Physician President Name Role Phone Misti Alcocer Primary Care Provider Reason for Visit * Reason Onset Date Comments Prior Authorization 08/30/2024 Encounter Details Date Type Department Care Team ([facility] st Contact Info) Description 08/30/2024 Telephone [facility] [address] [place], [place] [phone] Misti Alcocer ANP [address] [place] [address] Prior Authorization Social History Tobacco Use Types Packs/Day Years [...] encounter Miscellaneous Notes * Telephone Encounter - Charis Pollock - 08/30/2024 10:44 AM EDT Script for semaglutide (Ozempic) 4 MG/3ML solution pen-injector requires a prior authorization. documented in this encounter Plan of Treatment Upcoming Encounters Date Type Department Care Team (Late st Contact Info) Description 01/14/2025 10:30 AM EDT Clinical Support [facility] [address] [place] [address] documented as of this encounter Visit Diagnoses Not on filedocumented in this encounter Additional Health Concerns Assessment Noted Time PHQ-9 Depression Total Score: 0 08/12/19 24 11:08 AM EST documented as of this encounter Care Teams Physician President Relationship Specialty Start Date End Date Misti Alcocer ANP [address] [place] [address] PCP - General Family Medicine 01/29/21 documented as of this encounter
[2025-01-12 11:21] LABS: MANUAL DIFF FLAG NO
[2025-01-12 11:28] LABS: Hematocrit 44.1 % (37.0-47.0); Hemoglobin 14.5 g/dl (12.0-16.0); Imm Gran Abs Auto 0.03 X10*3/uL (0.00-0.03); Imm Gran Pct Auto 0.4 % (0.0-0.4); Lymphocytes Absolute Auto 2.5 X10*3/uL (1.2-4.9); Mean Corpuscular HGB Conc 32.9 g/dl (31.0-35.0); Mean Corpuscular Hemoglobin 27.5 pg (27.0-33.0); Mean Corpuscular Volume 83.7 fL (80.0-98.0); NRBC Abs Auto 0.000 X10*3/uL (0.0-0.012); NRBC Pct Auto 0.0 /100WBC (0.0-0.2); Platelet Count 284 X10*3/uL (160-400); Red Blood Count 5.27 X10*6/uL (4.20-5.50); White Blood Count 8.2 X10*3/uL (4.8-10.8)
[2025-01-12 11:29] LABS: Appearance Urine Clear; Glucose Urine UA 100 mg/dL (Negative); PH 6.0 (5.0-9.0); Specific Gravity - Urine 1.020 (1.005-1.025); UMIC TRIGGER UACC YES
[2025-01-12 11:34] LABS: INTERNATIONAL NORM RATIO 1.0 (0.9-1.1); Prothrombin Time 11.1 SEC (10.9-12.4)
[2025-01-12 11:35] LABS: Hemoglobin A1C 283.4762 umol/L; Total Hemoglobin (HGBA1C) 3835.7226 umol/L
[2025-01-12 11:37] LABS: Partial Thromboplastin Time 28.3 SEC (26.7-34.1)
[2025-01-12 12:22] LABS: Alanine Aminotransferase 52 U/L (0-31); Albumin Level 4.7 g/dL (3.5-5.0); Alkaline Phosphatase 144 U/L (39-117); Anion Gap 11 (12-20); Aspartate Amino Transferase 34 U/L (5-31); Blood Urea Nitrogen 6 mg/dL (9-16); Calcium 9.0 mg/dL (8.4-10.2); Carbon Dioxide 26 mmol/L (22-29); Chloride 106 mmol/L (96-108); Estimated Glomerular Filt Rate > 60; Magnesium 2.0 mg/dL (1.6-2.6); Potassium 4.0 mmol/L (3.3-5.1); Sodium 139 mmol/L (135-145); Total Protein 7.5 g/dL (6.5-8.0)
[2025-01-12 12:36] LABS: HIV Num 1 0.05 S/CO (0.00-0.99)
== END 2025-01-12 10:16 | disposition home or self-care (01) ==
LOC: HO.HHCL 10:15
PROVIDERS: PCP Nurse Practitioner Primary Care
DX: Z01.818 Encounter for other preprocedural examination (principal); E11.69 Type 2 diabetes mellitus with other specified complication; R74.01 Elevation of levels of liver transaminase levels; E78.5 Hyperlipidemia, unspecified; Z11.4 Encounter for screening for human immunodeficiency virus [HIV]
CPT/HCPCS: 36415; 80053; 81001; 83036; 83735; 84702; 85025; 85610; 85730; 87389

== ENCOUNTER 2025-02-21 11:05 | Outpatient (AMB) | payer MEDICAID, SELFPAY ==
[2025-02-21 11:12] VITALS: BP 100/64; PULSE 118; O2SAT 98; BMI 35.0
--- NOTE | 2025-02-21 11:12 | HO.NEPHOV ---
Vital Signs 02/21/25 11:12 Height 5 ft Weight 179 lb BMI 35.0 BP 100/64 Blood Pressure Location Lt brachial Position Sitting Pulse 118 H Pulse Source Pulse Oximeter Pulse Oximetry (%) 98 Oxygen Delivery Method Room Air Intake Visit Reasons: ENP: Proteinuria, Low Blood Urea Nitrogea Land Acquisition Analyst Required: Yes Land Acquisition Analyst Name: Catarina [id number] Accompanied by: Spouse Allergies No Known Allergies (No Known Allergies*) Allergy (Verified 02/21/25 11:14) Medication List - Last Reconciled 02/21/25 by Ian Person MD amlodipine 10 mg PO DAILY clotrimazole-betamethasone 1-0.05 % 1 appl topical DAILY ibuprofen 800 mg PO Q8H PRN lisinopril 40 mg PO DAILY metformin 1,000 mg PO BID HPI Comments Details: The patient is a 39-year-old female presenting with proteinuria. Proteinuria was identified during routine testing. The patient has essential hypertension for over two years, treated with lisinopril and amlodipine. Blood pressure control was not discussed. Type 2 diabetes mellitus is managed with metformin. Duration of diabetes is unspecified. Elevated liver enzymes are under evaluation with an ultrasound scheduled for March 17. Possible relation to diabetes noted. Medical History: - Essential Hypertension - Type 2 Diabetes Mellitus Medications: - Lisinopril for hypertension - Amlodipine for hypertension - Metformin for diabetes Social History: - No alcohol consumption - Non-smoker Diagnostic Results: - Labs: Proteinuria detected - Labs: Elevated liver enzymes [facility] Medical History Diverticulosis Migraines History of kidney stones Obesity Anemia Diabetes Elevated cholesterol HTN (hypertension) Surgical History Hx of colonoscopy History of dilatation and curettage History of lithotripsy History of renal stent History of tubal ligation History of section Family History Father Renal failure Hypertension CVD (cardiovascular disease) Diabetes Mother Hypertension Arthritis Depression Maternal Grandmother Stroke Maternal Grandfather No problems noted. Paternal Grandfather Cancer Daughter In good health Daughter In good health Social History Alcohol intake: never Patient Tobacco Use Status: Former Tobacco user Female Reproductive History Menstrual Age of Menarche: 13 Physical Exam Vital Signs: Last Vital Signs Pulse 118 H 02/21/25 11:12 BP 100/64 02/21/25 11:12 Pulse Ox 98 02/21/25 11:12 Oxygen Delivery Method Room Air 02/21/25 11:12 BMI result Body Mass Index 35.0 Const General: comfortable Nutritional Appearance: well nourished Orientation/consciousness: patient oriented x3 HEENT Head: No normal to inspection Mouth: moist mucous membranes Neck Neck: Yes supple and Yes no JVD Resp Auscultation: clear to auscultation bilaterally, no rales and rub present Cardio Jugular venous distension: no JVD Palpation: no palpable S3 and no palpable S4 Heart sounds: no rubs GI Palpation (GI): Soft to palpation and nontender Percussion: No Fluid wave present General: Yes no CVA tenderness Back/Spine/Pelvis Back: no CVA tenderness Skin General skin exam: no rashes or lesions noted Neuro General: patient oriented x3 Extrem General: Yes no pedal edema and No clubbing Results Reviewed Nephrology Results: Hgb, (12.0-16.0) 14.5 g/dl 01/12/25 WBC, (4.8-10.8) 8.2 X10*3/uL 01/12/25 Plt Count, (160-400) 284 X10*3/uL 01/12/25 Sodium, (135-145) 139 mmol/L 01/12/25 Potassium, (3.3-5.1) 4.0 mmol/L 01/12/25 Chloride, (96-108) 106 mmol/L 01/12/25 Carbon Dioxide, (22-29) 26 mmol/L 01/12/25 BUN, (9-16) 6 mg/dL L 01/12/25 Creatinine, (0.5-1.4) 0.66 mg/dL 01/12/25 Calcium, (8.4-10.2) 9.0 mg/dL 01/12/25 Urine Protein, (Neg-Trace) 30 (1+) mg/dL H 01/12/25 Urine Creatinine 133.67 mg/dL 06/29/24 Assessment & Plan Assessment & Plan (1) HTN (hypertension), benign: Code(s): I10 - Essential (primary) hypertension Category: Medical (2) Diabetes: Code(s): E11.9 - Type 2 diabetes mellitus without complications Category: Medical Plan 1. Proteinuria UA showed 1+ or 30 mg by dipstick UPCR was normal. Repeat UA and Urine Pro: Cr - Advise increased water intake - Avoid NSAIDs Further work up based on these results 2. Essential Hypertension - Maintain current antihypertensive regimen Low salt diet Maintian BP < 130/80 Will benefit from weight loss 3. Type 2 Diabetes Mellitus - Continue metformin therapy Continue ACEi Goal A1c < 7% 4. Elevated Liver Enzymes - Await ultrasound Orders: Orders Basic Metabolic Panel Today E11.9 - Type 2 diabetes mellitus without complications, I10 - Essential (primary) hypertension Total Protein Urine Random Today E11.9 - Type 2 diabetes mellitus without complications, I10 - Essential (primary) hypertension UA and rflx microscopic Today E11.9 - Type 2 diabetes mellitus without complications, I10 - Essential (primary) hypertension Creatinine Urine Today E11.9 - Type 2 diabetes mellitus without complications, I10 - Essential (primary) hypertension Coding Level of Care Code New Pt Level 4 (36674) Diagnoses HTN (hypertension), benign I10 Diabetes E11.9
--- OUTSIDE RECORDS SUMMARY | 2025-02-21 14:47 | XMS_ITS | Encounter Summary ---
Author Organization [email or web address] [facility] Address [address] [place] [address] 7t [place] [address] Care Team Providers Care Field Investigator Name Role Phone Misti Alcocer Primary Care Provider [phone] Encounter Details Date Type Department Care Team (Late st Contact Info) Description 06/19/2022 Orders Only [facility] [address] [place] [id number] Kacey Tirado LPN Social History Tobacco Use Types Packs/Day Years Used Date Smoking Tobacco: Never Assessed Comments Unknown Sex and Gender Information Value Date Recorded Sex Assigned at Female 04/08/2022 10:18 AM EDT Legal Sex Female 10:18 AM EDT Gender Identity Female 04/08/2022 10:18 AM EDT Sexual Orientation Straight 04/08/2022 10 :18 AM EDT documented as of this encounter Plan of Treatment Upcoming Encounters Date Type Department Care Team (Late st Contact Info) Description 03/04/2025 1:30 PM EDT Office Visit [facility] [address] [place] [address] Misti Alcocer ANP [address] [place] [address] 05/23/2025 2:00 PM EST Office Visit [facility] [address] [place] [address] Billie Jordan, OD [address] [place] [address] documented as of this encounter Procedures Procedure [...] AM EDT) Influenza A PCR NEGATIVE Negative [facility] Influenza B PCR NEGATIVE Negative [facility] Resp Syncy Virus RNA Qual PCR NEGATIVE Negative [facility] SARS COV2 PCR NEGATIVE Negative [facility] Comment:All test results mus t [...] use by authorized laboratories.Testing performed on the [employer] GeneXpert utilizingreal-time RT-PCR.All SARS CoV2 and positive influenza A/B results arereported to [facility]. 01/18/2023 1:11 AM EDT 01/18/2023 1:17 AM EDT us [facility] Exter nal Provider LAB MICROBIOLOGY - GENERAL ORDERABLES Final Result [facility] [address] [place] [address] [phone] * hCG, Total, Quantitative (01/17/2023 10:50 PM EDT) HCG Quantitative <2 mIU/mL [facility] Comment:Weeks post LMP Appro ximate hCG(Last Menstrual Period) Range (mIU/ml)3 - 4 weeks 9 - 1304 - 5 weeks 75 - 2,6005 - 6 weeks 850 - 20,8006 - 7 weeks 4000 - 100,2007 - 12 weeks 11,500 - 289,58065 - 16 weeks 18,300 - 137,58024 - 29 weeks (2nd trimester) 1,400 - 53,52793 - 41 weeks (3rd trimester) 940 - 60,000The Mustafa B-hCG assay is used for the early detection ofpregnancy; it cannot be used to diagnose any conditionunrelated to . If a B-hCG level is not supportedby the clinical evidence, results should be confirmed by analternative method (qualitative urine hCG, for example). 01/17/2023 10:5 0 PM EDT 01/17/2023 10:53 PM EDT us Generic External Data Provider LAB BLOOD ORDERAB LES Final Result [facility] [address] [place] [phone] * (ABNORMAL) Comprehensive Metabolic Panel (01/17/2023 10:50 PM EDT) Sodium 138 135 - 145 mmol/L [facility] Potassium 3.8 3.3 - 5.1 mmol/L [facility] Chloride 108 96 - 108 mmol/L [facility] Carbon Dioxide 20(L) 22 - 29 mmol/L [facility] Anion Gap 14 12 - 20 [facility] Urea Nitrogen (BUN) 13 9 - 16 mg/dL [facility] Creatinine, Serum 0.78 0.5 - 1.4 mg/dL [facility] Creatinine Clr Calc Pharmacy 94.8 [facility] Comment:Provided height and weight: 149.86 cm,84.368 kg.eGFR (calculated from the MDRD study equation) and eCrCl(calculated from the Cockcroft-Gault equation) are based ondifferent parameters and may not yield comparable results.If eCrCl result is absurd, please check patient'sheight/weight. Estimated Glomerular Filt Rate >60 [facility] Comment:NOTE: For -Am erican individuals, multiply the result by 1.210.Chronic Kidney Disease: Estimated GFR < 60 mL/min/1.40w3Ibwzfd Kidney Disease: Estimated GFR < 15 mL/min/1.73m2 Glucose 111 60 - 115 mg/dL [facility] Calcium 9.6 8.4 - 10.2 mg/dL [facility] Bilirubin, Total 0.3 0.0 - 1.0 mg/dL [facility] Aspartate Amino Transferase 17 5 - 31 U/L [facility] Alanine Aminotransferase 28 0 - 31 U/L [facility] Total Protein 7.9 6.5 - 8.0 g/dL [facility] Albumin Level 4.5 3.5 - 5.0 g/dL [facility] Alkaline Phosphatase 106 39 - 117 U/L [facility] 01/17/2023 10:5 0 PM EDT 01/17/2023 10:53 PM EDT us [facility] External Provider LAB BLO OD ORDERABLES Final Result Performing Organization Address City/State/[facility] Co de Phone Number [facility] [address] [place] [address] [phone] documented in this encounter Visit Diagnoses Not on filedocumented in this encounter Care Teams Field Investigator Relationship Specialty Start Date End Date Misti Alcocer ANP [address] [place] [id number] PCP - General Family Medicine 01/29/21 documented as of this encounter"
--- OUTSIDE RECORDS SUMMARY | 2025-02-21 14:47 | XMS_ITS | Clinical Summary ---
Author Organization [employer] Address [address] [facility] [address] [place] [address] Care Team Providers Care Pt Escort Name Role Phone Leodan Misti BURGOS Primary Care Provider [phone] Allergies Active Allergy Reactions Criticality Noted Date Comments Dulaglutide Diarrhea Medium 04/19/2021 Medications * This document contains information received from the source organization and may not represent a complete record from that organization. Continuous Blood Gluc Feed Mill Operator (FreeStyle Alfonzo 2 [place]) deviceIndications: Type 2 diabetes mellitus with hyperlipidemia (CMS/HCC) (CMS/HCC) Scan sensor every 6 hours 1 each 4 Active Continuous Blood Gluc Sensor (FreeStyle Alfonzo 2 Sensor) miscIndications:Ty pe 2 diabetes mellitus with hyperlipidemia (CMS/HCC) (CMS/HCC) Apply 1 sensor every 14 days 2 each 11 4 Active Diclofenac Sodium 1 % gelIndications:Fin owen pain, left APPLY 2 grams TOPICALLY TO THE AFFECTED AREA(S) UP TO FOUR TIMES DAILY NEEDED FOR PAIN / SWELLING 100 g 2 5 Active metFORMIN (Glucophage) 500 MG tabletIndications: Hypertension associated with diabetes (CMS/HCC) TAKE 2 TABLETS BY MOUTH TWICE DAILY 360 tablet 1 5 Active lisinopril 40 MG tabletIndications: Hypertension associated with diabetes (CMS/HCC) TAKE 1 TABLET BY MOUTH EVERY DAY 90 tablet 1 5 Active atorvastatin (Lipitor) 10 MG tabletIndications: Hypertension associated with diabetes (CMS/HCC) TAKE 1 TABLET BY MOUTH EVERY DAY 90 tablet 1 5 Active amLODIPine (Norvasc) 5 MG tabletIndications: Hypertension associated with diabetes (CMS/HCC) Take 2 tablets (10 mg) by mouth Once per day. 60 tablet 11 5 01/13/20 26 Active Hospital, Clinic, or Other Facility Administered Medication [...] follow-up Dyslipidemia 06/16/2018 Hypertension associated with diabetes 04/06/2018 Obesity (BMI 30-39.9) 04/06/2018 Encounters Date Type Department Care Team Description 01/31/2025 Travel 01/17/2025 Telephone [facility] [address] [place] [phone] Jovani Encarnacion CNP 01/14/2025 10:30 AM EDT Clinical Support [address] [address] Darlene Reddy, RN Hypertension associated with diabetes (CMS/HCC) 01/14/2025 Travel 01/12/2025 9:15 AM EDT Office Visit [facility] [address] [place] [phone] Jovani Encarnacion CNP Type 2 diabetes mellitus with hyperlipidemia (CMS/HCC) (CMS/HCC) (Primary Dx); Hypertension associated with diabetes (CMS/HCC); Dyslipidemia; Pre-op evaluation 01/12/2025 Orders Only [facility] [address] [place] [phone] Jovani Encarnacion CNP Transaminitis (Primary Dx); Proteinuria, unspecified type; Low blood urea nitrogen (BUN) 01/12/2025 Results Follow-Up [facility] [address] [place] [address] Jovani Encarnacion CNP CBC auto differential, Comprehensive Metabolic Panel, Prothrombin Time-INR, Additional followed-up results: 6 01/12/2025 Travel 01/10/2025 Telephone [facility] [address] [place] [address] Misti Alcocer ANP Appointment Request 01/06/2025 Telephone [facility] [address] [place] [address] Misti Alcocer ANP chart prep 12/31/2024 Travel 12/13/2024 Telephone [facility] [address] [place] [address] Misti Alcocer ANP Pre-op Exam 11/21/2024 Refill [facility] [address] [place] [address] Misti Alcocer ANP Hypertension associated with diabetes (CMS/HCC) from Last 3 Months Immunizations Immunization Administration Dates Next Due INFLUENZA VACCINE QUADRIVALE [...] Access Q2 Not on file 02/09/2024 Comments No Sex and Gender Information Value Date Recorded Sex Assigned at Female 04/08/2022 10:18 AM EDT Legal Sex Female 10:18 AM EDT Gender Identity Female 04/08/2022 10:18 AM EDT Sexual Orientation Straight 04/08/2022 10 :18 AM EDT Last Filed Vital Signs Vital Sign Reading Time Taken Comments Blood Pressure 142/86 01/14/2025 10:48 AM EDT Pulse 81 01/14/2025 10:47 AM EDT Temperature 36.6 C (97.9 F) 01/14/2025 10:47 AM EDT Respiratory Rate 18 01/14/2025 10:47 AM EDT Oxygen Saturation 99% 01/14/2025 10:47 AM EDT Inhaled Oxygen Concentration - - Weight 81.2 kg (179 lb) 01/14/2025 10:47 AM EDT Height 153.5 cm (5' 0.43 ) 01/12/2025 9:28 AM ED T Body Mass Index 34.46 01/12/2025 9:28 AM EDT Plan of Treatment Upcoming Encounters Date Type Department Care Team (Late st Contact Info) Description 03/04/2025 1:30 PM EDT Office Visit [facility] [address], [place] [phone] Misti Alcocer, ANP [address] [place] [address] 05/23/2025 2:00 PM EST Office Visit [facility] [address] [place] [address] Billie Jordan, OD [address] [place] [address] Health Maintenance Due Date Last Done Comments CT Colonography 1987 Dental Prophylaxis 1987 FIT DNA/Cologuard 1987 FIT 1987 FOBT 1987 Sigmoidoscopy 1987 Alcohol/Substance Use Screening 1999 Family Planning (PISQ) 11/17/2002 HPV Vaccines (1 - 3-dose series) 11/17/2002 Hepatitis B Vaccines (1 of 3 - 19+ 3-dose series) 11/17/2006 Dental X-Ray: Full Mouth 07/04/2018 07/03/2015 Dental Oral Exam 07/05/2018 01/01/2018, , 07/03/2015 SDOH Screening 08/04/2024 08/04/2023 Depression Screening 08/11/2024 08/12/2023, 08/12/19 24 Diabetes: Foot Exam 12/21/2024 12/22/2023, 12/22/2023, 12/22/2023, Additional history exists COVID-19 Vaccine ( season) 2025 05/29/2021, 11/06/2020, 10/09/2020 Influenza Vaccine (#1) 2025 , 02/22/2022, 04/19/2021, Additional history exists Diabetes: Hemoglobin A1C 04/14/2025 082 025, 06/29/2024, 03/23/2024, Additional history exists Lipid Panel 06/23/2025 06/23/2024, 12/04/2020 Diabetes: Urine Protein Screening 06/29/2025 06/29/2024, 07/06/2021 Dental X-Ray: Bitewings 09/23/2025 09/23/19, 01/01/2018, 07/03/2015 Disability Screening 12/31/2025 12/31/2024 Tobacco Screening 01/12/2026 01/12/2025 Eye Exam 02/11/2026 02/12/2024, 09/0 10/2023, 02/12/2024, Additional history exists Cervical Cancer Screening 05/21/2026 Pap Smear 05/21/2026 05/21/2021, 05/21/2021 HPV/Cotest 08/15/2026 08/15/2021, 03/0 02/2022, 05/21/2021 Colonoscopy 08/23/2026 Colorectal Cancer Screening 08/23/2026 DTaP/Tdap/Td Vaccines (3 - Td or Tdap) 02/20/2031 02/20/2021, 05/24/2016 Zoster Vaccines (1 of 2) 11/17/2037 RSV Patients and Patients Aged 60 years or older (1 - 1-dose 75+ series) 11/17/2062 Hepatitis C Screening 06/09/2098 12/04/2020 Pneumococcal Vaccine: Pediatrics (0 to 5 Years) and At-Risk Patients (6 to 49) Years Completed 03/23/2024 HIV Screening Completed 01/12/2025, 12/04/2020 HIB Vaccines Aged Out No longer eligi ble based on patient's age to complete this topic Hepatitis A Vaccines Aged Out No long er eligible based on patient's age to complete this topic IPV Vaccines Aged Out No longer eligi ble based on patient's age to complete this topic Meningococcal B Vaccine Aged Out No l onger eligible based on patient's age to complete [...] Procedure Name Priority Date/Time Associated Diagnosis Comments ECG 12-LEAD Routine 01/12/2025 10:40 AM EDT Pre-op evaluation MAGNESIUM Routine 01/12/2025 10:22 AM EDT Pre-op evaluation HIV 1/2 ANTIGEN/ANTIBODY, FOURTH GENERATION W/RFL Routine 01/12/2025 10:22 AM EDT Pre-op evaluation URINALYSIS, COMPLETE, WITH REFLEX TO CULTURE Routine 01/12/2025 10:22 AM EDT Pre-op evaluation HEMOGLOBIN A1C Routine 01/12/2025 10:22 AM EDT Type 2 diabetes mellitus with hyperlipidemia (CMS/HCC) (CMS/HCC) HCG, TOTAL, QN Routine 01/12/2025 10:22 AM EDT Pre-op evaluation APTT Routine 01/12/2025 10:22 AM EDT Pre-op evaluation PROTHROMBIN TIME-INR Routine 01/12/2025 10:22 AM EDT Pre-op evaluation COMPREHENSIVE METABOLIC PANEL Routine 01/12/2025 10:22 AM EDT Pre-op evaluation CBC WITH AUTO DIFFERENTIAL Routine 01/12/2025 10:22 AM EDT Pre-op evaluation BITEWING - SINGLE RADIOGRAPHIC IMAGE Routine 09/22/2024 11:30 AM EDT Acute periodontal abscess Pulpitis ALBUMIN, RANDOM URINE W/CREATININE Routine 06/29/2024 12:37 PM EST LIPID PANEL, STANDARD Routine 06/23/2024 10:57 AM EST Hypertension associated with diabetes (CMS/HCC) (CMS/HCC) ZZZ HISTORICAL HPV E6/E7 RFLX JOE 16 18/45 Routine 08/15/2021 12:16 PM EST PAP SMEAR Routine 05/21/2021 12:00 AM EST ZZZ HISTORICAL HEPATITIS C AB W/REFL TO HCV RNA, QN, PCR Routine 12/04/2020 8:33 AM EDT COMPREHENSIVE ORAL EVALUATION - NEW OR ESTABLISHED PATIENT Routine 01/01/2018 12:00 AM EDT INTRAORAL - COMPLETE SERIES OF RADIOGRAPHIC IMAGES Routine 07/03/2015 12:00 AM EST from Last 3 Months or Most Recently Relevant to Health Maintenance Results * ECG 12 lead (01/12/2025 10:40 AM EDT) Jovani Cruz CNP - 01/12/2025 10:40 AM EDT 75bpm regular rhythm normal R wave progression ?t wave amplitude [facility] ECG ORDERABLES Final Res ult * (ABNORMAL) Urinalysis, Complete, with Reflex to Culture (01/12/2025 10:22 AM EDT) Color Urine Yellow [facility] Appearance Urine Clear [facility] PH 6.0 5.0 - 9.0 [facility] Glucose Urine UA 100(A) Negative mg/dL [facility] Urine Blood Negative Negative [facility] Specific [place] - Urine 1.020 1.005 - 1.025 [facility] Urine Protein 30 (1+)(A) Neg-Trace mg/dL [facility] Urine Ketones Trace Negative mg/dL [facility] Nitrite Urine Negative Negative [facility] Leukocyte Esterase Urine Negative Negative [facility] RBC Urine 0-2 0 - 2 /HPF [facility] Urine WBC 0-5 0 - 5 /HPF [facility] Urine Squamous Epithelial Cell 3-5 0 - 2 /HPF [facility] Urine Bacteria None Seen None Seen [facility] Hyaline Casts, Urine 0-2 0 - 2 /LPF [facility] Urine 01/12/2025 10:2 2 AM EDT 01/12/2025 11:12 AM EDT Narrative [facility] - 01/12/2025 11:37 AM EDT Urine, Clean Catch [facility] LAB URINE ORDERABLES Dee l Result [facility] [address] [place] [phone] * CBC auto differential (01/12/2025 10:22 AM EDT) White Blood Count 8.2 4.8 - 10.8 X10*3/uL [facility] Red Blood Count 5.27 4.20 - 5.50 X10*6/uL [facility] Hemoglobin 14.5 12.0 - 16.0 g/dl [facility] Hematocrit 44.1 37.0 - 47.0 % [facility] Mean Corpuscular Volume 83.7 80.0 - 98.0 fL [facility] Mean Corpuscular Hemoglobin 27.5 27.0 - 33.0 pg [facility] Mean Corpuscular HGB Conc 32.9 31.0 - 35.0 g/dl [facility] Red Cell Distribution Width 13.7 11.0 - 16.0 % [facility] Platelet Count 284 160 - 400 X10*3/uL [facility] Mean Platelet Volume 10.0 9.4 - 12.3 fL [facility] Neutrophils Percent Auto 61.3 45 - 73 % [facility] Imm Gran Pct Auto 0.4 0.0 - 0.4 % [facility] Lymphocytes Percent Auto 30.7 20 - 40 % [facility] Monocytes Percent Auto 6.5 2 - 11 % [facility] Eosinophils Percent Auto 0.7 0 - 4 % [facility] Basophils Percent Auto 0.4 0 - 2 % [facility] NRBC Pct Auto 0.0 0.0 - 0.2 /100WBC [facility] Neutrophils Absolute Auto 5.0 2.0 - 8.3 x10*3/uL [facility] Imm Gran Abs Auto 0.03 0.00 - 0.03 X10*3/uL [facility] Lymphocytes Absolute Auto 2.5 1.2 - 4.9 X10*3/uL [facility] Monocytes Absolute Auto 0.5 0.1 - 1.2 X10*3/uL [facility] Eosinophils Absolute Auto 0.1 0.0 - 0.4 X10*3/uL [facility] Basophils Absolute Auto 0.0 0.0 - 0.2 X10*3/uL [facility] NRBC Abs Auto 0.000 0.0 - 0.012 X10*3/uL [facility] Blood Venous blood specimen / Unknown 01/12/2025 10:22 AM EDT 01/12/2025 11:14 AM EDT [facility] LAB BLOOD ORDERABLES Dee l Result [facility] [address] [place] [phone] * HIV-1/2 Antigen and Antibodies, Fourth Generation, with Reflexes (01/12/2025 10:22 AM EDT) HIV AB/AG Nonreactive Nonreactive [facility] Comment:HIV-1 p24 Ag and/or HIV-1/HIV-2 Ab not detected.A test result that is nonreactive does not exclude thepossibility of exposure to or infection with HIV-1 and/orHIV-2. Nonreactive results in this assay for individualswith prior exposure to HIV-1 and/or HIV-2 may be due toantigen and antibody levels that are below the limit ofdetection of this assay.The hipix HIV Ag/Ab Combo assay result andsupplemental assay results should be interpreted inconjunction with the patient's clinical presentation,history and other laboratory results. If the results areinconsistent with clinical evidence, additional testing issuggested to confirm the result. Blood Venous blood specimen / Unknown 01/12/2025 10:22 AM EDT 01/12/2025 11:14 AM EDT [facility] LAB BLOOD ORDERABLES Dee l Result [facility] [address] [place] [phone] * Partial Thromboplastin Time, Activated (APTT) (01/12/2025 10:22 AM EDT) [facility] Partial Thromboplastin Time 28.3 26.7 - 34.1 SEC [facility] Blood Venous blood specimen / Unknown 01/12/2025 10:22 AM EDT 01/12/2025 11:14 AM EDT [facility] LAB BLOOD ORDERABLES Dee l Result Performing Organization Address [facility] Co de Phone Number [facility] [address] [place] [address] [phone] * Prothrombin Time-INR (01/12/2025 10:22 AM EDT) [facility] Prothrombin Time 11.1 10.9 - 12.4 SEC [facility] INTERNATIONAL NORM RATIO 1.0 0.9 - 1.1 [facility] Comment:INTERNATIONAL NORMAL IZED RATIO (INR) REFERENCE RANGES Reference RangeFor patients not on anticoagulant therapy: 0.9 - 1.1INR ranges for oral anticoagulanttherapy:For prevention and treatment of venous thrombosis and pulmonary embolism: 2.0 - 3.0For acute myocardial infarction with aspirin therapy: 2.0 - 3.0For acute myocardial infarction without aspirin therapy: 3.0 - 4.0For patients with mechanical prosthetic heart valves: 2.5 - 3.5 Blood Venous blood specimen / Unknown 01/12/2025 10:22 AM EDT 01/12/2025 11:14 AM EDT [facility] LAB BLOOD ORDERABLES Dee l Result Performing Organization Address [facility] Co de Phone Number [facility] [address] [place] [phone] * hCG, Total, Quantitative (01/12/2025 10:22 AM EDT) [facility] HCG Quantitative <2 mIU/mL [facility] Comment:Weeks post LMP Appro ximate hCG(Last Menstrual Period) Range (mIU/ml)3 - 4 weeks 9 - 1304 - 5 weeks 75 - 2,6005 - 6 weeks 850 - 20,8006 - 7 weeks 4000 - 100,2007 - 12 weeks 11,500 - 289,70368 - 16 weeks 18,300 - 137,99741 - 29 weeks (2nd trimester) 1,400 - 53,41127 - 41 weeks (3rd trimester) 940 - 60,000The Mustafa B- hCG assay is used for the early detection ofpregnancy; it cannot be used to diagnose any conditionunrelated to . If a B-hCG level is not supportedby the clinical evidence, results should be confirmed by analternative method (qualitative urine hCG, for example). Blood Venous blood specimen / Unknown 01/12/2025 10:22 AM EDT 01/12/2025 11:30 AM EDT [facility] LAB BLOOD ORDERABLES Dee l Result Performing Organization Address City/[facility]/ZIP Co de Phone Number [facility] [address] [place] [address] [phone] * Magnesium (01/12/2025 10:22 AM EDT) Magnesium 2.0 1.6 - 2.6 mg/dL [facility] Blood Venous blood specimen / Unknown 01/12/2025 10:22 AM EDT 01/12/2025 11:30 AM EDT [facility] LAB BLOOD ORDERABLES Dee l Result Performing Organization Address City/[facility]/ZIP Co de Phone Number [facility] [address] [place] [address] [phone] * (ABNORMAL) Hemoglobin A1c (01/12/2025 10:22 AM EDT) Hemoglobin A1c 8.9(H) <6.0 % [facility] Comment:Hemoglobin A1C Refer ence Range Adults: 4.8 - 6.0 % Non diabetic: < 6.0 % Goal: < 7.0 %Additional Action Suggested: > 8.0 %Note: Hemoglobin A1c results are invalid for patients with abnormal amounts of HbF. Blood transfusions may impact the HbA1c concentration in the patient sample. Estimated Average Glucose 209 mg/dL [facility] Comment:eAG = Estimated ave rage glucose which is %A1C expressed asaverage glucose, using the formula of the P6K-[id number] Glucose study (ADAG), Diabetes Care, Vol.31,#8,Jan. 2007 Blood Venous blood specimen / Unknown 01/12/2025 10:22 AM EDT 01/12/2025 11:14 AM EDT [facility] LAB BLOOD ORDERABLES Dee denney Result [facility] [address] [place] [phone] * (ABNORMAL) Comprehensive Metabolic Panel (01/12/2025 10:22 AM EDT) Sodium 139 135 - 145 mmol/L [facility] Potassium 4.0 3.3 - 5.1 mmol/L [facility] Chloride 106 96 - 108 mmol/L [facility] Carbon Dioxide 26 22 - 29 mmol/L [facility] Anion Gap 11(L) 12 - 20 [facility] Urea Nitrogen (BUN) 6(L) 9 - 16 mg/dL [facility] Creatinine, Serum 0.66 0.5 - 1.4 mg/dL [facility] Estimated Glomerular Filt Rate >60 [facility] Comment:Chronic Kidney Disea se: Estimated GFR < 60 mL/min/1.72f5Vcdekh Kidney Disease: Estimated GFR < 15 mL/min/1.73m2 Glucose 162(H) 60 - 115 mg/dL [facility] Calcium 9.0 8.4 - 10.2 mg/dL [facility] Bilirubin, Total 0.8 0.0 - 1.0 mg/dL [facility] Aspartate Amino Transferase 34(H) 5 - 31 U/L [facility] Alanine Aminotransferase 52(H) 0 - 31 U/L [facility] Total Protein 7.5 6.5 - 8.0 g/dL [facility] Albumin Level 4.7 3.5 - 5.0 g/dL [facility] Alkaline Phosphatase 144(H) 39 - 117 U/L [facility] Blood Venous blood specimen / Unknown 01/12/2025 10:22 AM EDT 01/12/2025 11:30 AM EDT Jovani Encarnacion SURGICAL PHYSICIAN ASSISTANT LAB BLOOD ORDERABLES Dee l Result Performing Organization Address [facility] Co de Phone Number [facility] [address] [place] [phone] * Albumin, Random Urine W/Creatinine (06/29/2024 12:37 PM EST) Creatinine, Urine 133.67 mg/dL [facility] Microalbumin Urine 30.0 mg/L [facility] Microalbum Creatinine Ratio Ur 22.4 <30 ug/mg cr [facility] Comment:Albumin/Creatinine R atio Reference Ranges: Normal: < 30 ug/mg creatinine Microalbuminuria: 30 - 300 ug/mg creatinineClinical Albuminuria: > 300 ug/mg creatinine 06/29/2024 12:3 7 PM EST 06/29/2024 1:19 PM EST Misti Alcocer ANP LAB URINE ORDERABLES Final Resul t Performing Organization Address [facility]/ZIP Co de Phone Number [facility] [address] [place] [address] [phone] * (ABNORMAL) Lipid Panel, Standard (06/23/2024 10:57 AM EST) Triglycerides 127 <150 mg/dL [facility] Comment:Desirable Triglyceri de: less than 150 mg/dLBorderline High Triglyceride 150-199 mg/dLHigh Triglyceride: 200-499 mg/dLVery High Triglyceride: greater than or equal to 5OO mg/dL Cholesterol 173 <200 mg/dL [facility] Comment:Desirable Cholestero l: less than 200 mg/dLBorderline High Cholesterol: 200-239 mg/dLHigh Cholesterol: greater than 239 mg/dL LDL Cholesterol Calculated 114(H) <100 mg/dL [facility] Comment:Desirable LDL: less than 100 mg/dLNear Optimal/Above Optimal LDL: 110- 129 mg/dLBorderline High LDL: 130-159 mg/dLHigh LDL: 160-189 mg/dLVery High LDL: greater than or equal to 190 mg/dL HDL Cholesterol 34(L) >40 mg/dL [facility] Comment:Desirable HDL: great er than 40 mg/dL Note: This HDL assay may give artificially low results in patients with liver disease. Blood Venous blood specimen / Unknown 06/23/2024 10:57 AM EST 06/23/2024 11:05 AM EST [facility] hospital LAB BLOOD ORDERABLES Final Resul t [facility] [address] [place] [address] [phone] * HPV E6/E7 RFLX JOE 16 18/45 (08/15/2021 12:16 PM EST) HPV 16 RNA [facility] HPV 18/45 RNA [facility] HPV E6 E7 ADD [facility] HPV mRNA E6/E7 rflx Not Detected Not Detected [facility] Comment: Methodology: [employer]-Mediated Amplification This assay detects E6/E7 viral messenger RNA (mRNA) from 14 high-risk HPV types (16,18,31,33,35,39,45,51,52,56,58,59,66,68). The analytical performance characteristics of this assay have been determined by [employer]. The modifications have not been cleared or approved by the FDA. This assay has been validated pursuant to the CLIA regulations and is used for clinical purposes. For additional information, please refer to http://education.Palmap/faq/SNG268f9 (This link if provided for information/ educational purposes only.) THIS TEST WAS PERFORMED AT: [facility] [address] [place] [address],[place] [phone] JOANN CHEUNG MD 08/15/2021 12:1 6 PM EST Cordell Capone MD HISTORICAL/NON ORDERABLE LABS Fi nal Result Performing Organization Address [facility] Co de Phone Number [facility] [address] * Pap Smear (05/21/2021 12:00 AM EST) Swab Carley Phillips CNM LAB CYTOLOGY ORDERABLES F inal Result Performing Organization Address [facility] de Phone Number [facility] [address] [place] [address], [place] [phone] * HEPATITIS C AB W/REFL TO HCV RNA, QN, PCR (12/04/2020 8:33 AM EDT) HEPATITIS C ANTIBODY NON-REACT VERONICA NON-REACT VERONICA [facility] INDEX 0.01 <1.00 [facility] Comment: HCV antibody was non-reactive. There is no laboratory evidence of HCV infection. In most cases, no further action is required. However, if recent HCV exposure is suspected, a test for HCV RNA (test code 69007) is suggested. For additional information please refer to [email or web address].com.Palmap/faq/[email or web address] (This link is being provided for informational/ educational purposes only.) 12/04/2020 8:33 AM EDT Historical Provider HISTORICAL/NON ORDERABLE LABS Final Result Performing Organization Address [facility] Co de Phone Number [facility] [address] from Last 3 Months or Most Recently Relevant to Health Maintenance Insurance HSN PARTIAL FORMERLY [facility] MEDICAID STAND ADULT Care Teams Pt Escort Relationship Specialty Start Date End Date Misti Alcocer ANP [address] [place] [address] PCP - General Family Medicine 01/29/21
--- OUTSIDE RECORDS SUMMARY | 2025-02-21 14:47 | XMS_ITS | Encounter Summary ---
Author Organization [employer] Address [address] [facility] 7t [place] [address] Care Team Providers Care Waste Water Operator Name Role Phone Misti Alcocer Primary Care Provider [phone] Encounter Details Date Type Department Care Team (Late st Contact Info) Description 08/30/2024 Telephone [facility] MED & PEDS [address] [place], [place] [phone] Misti Alcocer ANP [address] [place] [address] Social History Tobacco Use Types Packs/Day Years [...] Description 03/04/2025 1:30 PM EDT Office Visit [facility] MEDICINE [address] [place] [address] Misti Alcocer ANP [address] [place] [address] 05/23/2025 2:00 PM EST Office Visit [facility] OPTOMETRY [address] [place] [address] TarBillie lerner, OD [address] [place] [address] documented as of this encounter Visit Diagnoses Not on filedocumented in this encounter Additional Health Concerns Assessment Noted Time PHQ-9 Depression Total Score: 0 08/12/19 24 11:08 AM EST documented as of this encounter Care Teams Waste Water Operator Relationship Specialty Start Date End Date Misti Alcocer ANP [address] [place] [address] PCP - General Family Medicine 01/29/21 documented as of this encounter
--- OUTSIDE RECORDS SUMMARY | 2025-02-21 14:47 | XMS_ITS | Encounter Summary ---
Author Organization [employer] Address 75 [facility] 7t [place] [address] Care Team Providers Care Spinning Bath Person Name Role Phone Misti Alcocer Primary Care Provider [phone] Reason for Visit * Reason Onset Date Comments Prior Authorization 08/30/2024 Encounter Details Date Type Department Care Team ([facility] st Contact Info) Description 08/30/2024 Telephone [facility] CHC MED & PEDS [address] [place], [place] [phone] Misti Alcocer ANP [address] [facility] [place] [address] Prior Authorization Social History Tobacco Use Types [...] Description 03/04/2025 1:30 PM EDT Office Visit [facility] MEDICINE [address] [place] [address] Misti Alcocer ANP [address] [place] [address] 05/23/2025 2:00 PM EST Office Visit [facility] OPTOMETRY [address] [place], [place] [phone] Billie Jordan OD [address] [place] [address] documented as of this encounter Visit Diagnoses Not on filedocumented in this encounter Additional Health Concerns Assessment Noted Time PHQ-9 Depression Total Score: 0 08/12/19 11:08 AM EST documented as of this encounter Care Teams Spinning Bath Person Relationship Specialty Start Date End Date Misti Alcocer ANP [address] [place] [address] PCP - General Family Medicine 01/29/21 documented as of this encounter
--- OUTSIDE RECORDS SUMMARY | 2025-02-21 14:47 | XMS_ITS | Encounter Summary ---
Author Organization [employer] Address 75 [facility] 7t [place] [address] Care Team Providers Care Coal Shoveler Name Role Phone Misti Alcocer Primary Care Provider [phone] Reason for Visit * Reason Onset Date Comments Pre-op Exam 12/13/2024 Encounter Details Date Type Department Care Team ([facility] st Contact Info) Description 12/13/[address] [facility] MEDICINE [address] [place], [place] [phone] Misti Alcocer ANP 230 [place], [place] [phone] Pre-op Exam Social History Tobacco Use Types Packs/Day Years [...] encounter Miscellaneous Notes * Telephone Encounter - Jakub Martinez - 12/14/2024 9:39 AM EDT Pt agreed to pre-op on 01/07 with MAYCO aldrich . Pt will bring in pre-op forms from facility * Telephone Encounter - Jakub Martinez - 12/14/2024 9:10 AM EDT Left pt a VM to return call documented in this encounter Plan of Treatment Upcoming Encounters Date Type Department Care Team (Late st Contact Info) Description 03/04/2025 1:30 PM EDT Office Visit [facility] MEDICINE [address] [place] [address] Misti Alcocer ANP [address] [place] [address] 05/23/2025 2:00 PM EST Office Visit [facility] OPTOMETRY [address] [place] [address] Billie Jordan, OD [address] [place] [address] documented as of this encounter Visit Diagnoses Not on filedocumented in this encounter Additional Health Concerns Assessment Noted Time PHQ-9 Depression Total Score: 0 08/12/19 24 11:08 AM EST documented as of this encounter Care Teams Coal Shoveler Relationship Specialty Start Date End Date Misti Alcocer ANP [address] [place] [address] PCP - General Family Medicine 01/29/21 documented as of this encounter
== END 2025-02-21 11:30 | disposition home or self-care (01) ==
LOC: HO.HKA 11:05
PROVIDERS: PCP Nurse Practitioner Primary Care; Visit Provider Internal Medicine Hypertension Specialist
DX: I10 Essential (primary) hypertension (principal); E11.9 Type 2 diabetes mellitus without complications
CPT/HCPCS: 99204

== ENCOUNTER → 2025-02-21 11:05 | Outpatient (BNVA) | payer MEDICAID, SELFPAY | PROVIDERS: PCP Nurse Practitioner Primary Care; Visit Provider Internal Medicine Hypertension Specialist | DX: E11.9 Type 2 diabetes mellitus without complications (principal); I10 Essential (primary) hypertension; R80.8 Other proteinuria | CPT/HCPCS: 99202 ==

== ENCOUNTER 2025-02-21 11:33 | Outpatient (REF) | payer MEDICAID, SELFPAY ==
[2025-02-21 12:44] LABS: Appearance Urine Clear; Glucose Urine UA 100 mg/dL (Negative); PH 6.0 (5.0-9.0); Specific Gravity - Urine 1.020 (1.005-1.025)
[2025-02-21 12:53] LABS: Total Protein Urine Random 17 mg/dL (<12)
[2025-02-21 12:55] LABS: Anion Gap 12 (12-20); Blood Urea Nitrogen 9 mg/dL (9-16); Calcium 9.1 mg/dL (8.4-10.2); Carbon Dioxide 26 mmol/L (22-29); Chloride 103 mmol/L (96-108); Estimated Glomerular Filt Rate > 60; Potassium 4.2 mmol/L (3.3-5.1); Sodium 137 mmol/L (135-145)
== END 2025-02-21 11:34 | disposition home or self-care (01) ==
LOC: HO.10HDL 11:33
PROVIDERS: Visit Provider Internal Medicine Hypertension Specialist
DX: E11.9 Type 2 diabetes mellitus without complications (principal); I10 Essential (primary) hypertension
CPT/HCPCS: 36415; 80048; 81003; 82570; 84156

== ENCOUNTER 2025-03-04 14:16 | Outpatient (REF) | payer OTHER, SELFPAY ==
--- NOTE | ~2025-03-04 | XR_ITS ---
EXAMINATION: XR CHEST 2 VIEWS HISTORY: cough x 2 weeks COMPARISON: Comparison is made with the prior examination dated 01/18/2023. FINDINGS: PA and lateral views of the chest are submitted. There is patchy airspace opacity in the left lower lobe, consistent with pneumonia. The right lung is clear. There is no pleural effusion, pneumothorax, or pulmonary vascular congestion. The heart is normal in size. The bones are intact. XR/XR chest 2V IMPRESSION: Left lower lobe pneumonia. Electronically signed by: Chris Sterling MD 03/04/2025 02:39 PM EDT
== END 2025-03-04 14:17 | disposition home or self-care (01) ==
LOC: HO.HHCX 14:16
PROVIDERS: PCP Nurse Practitioner Primary Care; Visit Provider Nurse Practitioner Primary Care
DX: R05.1 Acute cough (principal)
CPT/HCPCS: 71046

== ENCOUNTER → 2025-03-04 14:21 | Outpatient (BNV) | payer OTHER, SELFPAY | PROVIDERS: PCP Nurse Practitioner Primary Care; Visit Provider Radiology Diagnostic Radiology | DX: J18.1 Lobar pneumonia, unspecified organism (principal) | CPT/HCPCS: 71046 ==

== ENCOUNTER 2025-03-17 08:44 | Outpatient (REF) | payer OTHER, SELFPAY ==
--- NOTE | ~2025-03-17 | US_ITS ---
EXAMINATION: US COMPLETE ABDOMEN WITH LIVER ELASTOGRAPHY CLINICAL INFORMATION: Transaminitis. COMPARISON: No relevant prior. Correlation made with CT abdomen and pelvis 08/03/2019. TECHNIQUE: Real-time imaging of the abdominal viscera. Noninvasive ultrasound liver fibrosis assessment is performed using Natalio ElastPQ point quantification shear wave elastography (pSWE) with a C5-2 MHz transducer. Multiple elastography samples are obtained. FINDINGS: PANCREAS: The visualized pancreatic head and body are normal in appearance. The remainder of the pancreas is obscured from visualization by the overlying bowel gas. ABDOMINAL AORTA: No aortic aneurysm is seen. INFERIOR VENA CAVA: Visualized portions are normal. LIVER: Liver is normal in size, contour, with diffusely increased parenchymal echogenicity likely representing steatosis. There is no focal suspicious hepatic lesion. There is no intrahepatic biliary dilatation. The right lobe measures 16.5 cm in length. The left lobe measures 10.5 cm in length. Portal flow is towards the liver (hepatopetal). Shear wave liver elastography median stiffness is 1.5 m/s (reference: normal median stiffness is 1.3 m/s or less). IQR/median stiffness to assess sampling precision is 0.07 (reference: good quality data set is IQR/median stiffness of 0.15 or less). This indicates a quality data set. GALLBLADDER: The gallbladder is physiologically distended without evidence of stones, sludge, polyps, wall thickening or pericholecystic fluid. Negative sonographic Waldrop's sign. COMMON BILE DUCT: Normal in caliber measuring 0.3 cm in diameter. RIGHT KIDNEY: No hydronephrosis. No suspicious focal parenchymal lesions. The kidney measures 11.3 cm in maximum dimension. There is a lateral lower pole calculus measuring 0.7 x 0.4 x 0.6 cm. LEFT KIDNEY: No hydronephrosis. No renal calculi or focal parenchymal lesions. The kidney measures 12.0 cm in maximum dimension. SPLEEN: Unremarkable. The spleen measures 10.1 cm in maximum dimension. FREE FLUID: None seen. US/US abdomen comp w elastography IMPRESSION: 1. Diffusely increased hepatic echogenicity in keeping with hepatic steatosis. No suspicious focal hepatic lesion. 2. Liver elastography: In the absence of other known clinical signs, measurements rule out compensated advanced chronic liver disease. If there are known clinical signs, further testing may be needed for confirmation. 3. Normal gallbladder and bile ducts. 4. Nonobstructing right nephrolithiasis. REFERENCE: Society of Radiologists in Ultrasound Liver Stiffness Thresholds (2019): LIVER STIFFNESS THRESHOLDS: *Liver Stiffness equal or less than 1.3 m/s: High probability of being normal. *Liver Stiffness less than 1.7 m/s: In the absence of other known clinical signs, rules out compensated advanced chronic liver disease. *Liver Stiffness 1.7-2.1 m/s: Suggestive of compensated advanced chronic liver disease but need further test for confirmation. *Liver Stiffness over 2.1 m/s: Rules in compensated advanced chronic liver disease. *Liver Stiffness over 2.4 m/s: Suggestive of clinically significant portal hypertension. QUALITY OF DATA SET: *IQR/Median value equal or less than 0.15 implies a quality data set. *IQR/Median value over 0.15 implies a poor quality data set. SIGNIFICANT CHANGE FROM PRIOR EXAM: Significant change if liver stiffness measurement is 10% or greater from prior exam. OTHER CONSIDERATIONS: The stage of liver fibrosis may be overestimated in the setting of acute hepatitis, liver inflammation, elevated liver function tests, hepatic vascular congestion, obstructive cholestasis, non-fasting state, and infiltrative diseases such as amyloidosis and lymphoma. In some patients with NAFLD, the liver stiffness thresholds for compensated advanced chronic liver disease may be lower. In causes other than viral hepatitis and NAFLD, liver stiffness thresholds are not well established. Electronically signed by: Abdiel Fitzpatrick MD 03/17/2025 09:51 AM EDT
--- NOTE | ~2025-03-17 | XR_ITS ---
EXAMINATION: XR CHEST CLINICAL INFORMATION: repeat chest XR s/p tx for PNA COMPARISON: Previous chest x-ray most recent February 2025 TECHNIQUE: 2 views of the chest were obtained. FINDINGS: No significant abnormality is noted involving the heart, lungs, mediastinum, bony thorax or soft tissues. Previously seen patchy opacities in the left lung on February 2025 exam are no longer seen. XR/XR chest 2V IMPRESSION: Unremarkable examination. Resolved left-sided pneumonia from February 2025. Electronically signed by: Eugenie Crisostomo MD 03/17/2025 09:02 AM EDT
== END 2025-03-17 08:45 | disposition home or self-care (01) ==
LOC: HO.US 08:44
PROVIDERS: PCP Nurse Practitioner Primary Care
DX: R74.01 Elevation of levels of liver transaminase levels (principal); J18.9 Pneumonia, unspecified organism
CPT/HCPCS: 71046; 76700; 76981

== ENCOUNTER → 2025-03-17 08:47 | Outpatient (BNV) | payer OTHER, SELFPAY | PROVIDERS: PCP Nurse Practitioner Primary Care; Visit Provider Radiology Diagnostic Radiology | DX: N20.0 Calculus of kidney (principal); K76.89 Other specified diseases of liver; J18.9 Pneumonia, unspecified organism | CPT/HCPCS: 71046; 76700 ==

== ENCOUNTER 2025-04-04 10:56 | Outpatient (AMB) | payer OTHER, SELFPAY ==
[2025-04-04 11:04] VITALS: BP 112/72; PULSE 98; O2SAT 98; BMI 35.0
--- NOTE | 2025-04-04 11:04 | HO.NEPHOV ---
Vital Signs 04/04/25 11:04 Height 5 ft Weight 179 lb BMI 35.0 BP 112/72 Blood Pressure Location Rt brachial Position Sitting Pulse 98 Pulse Source Pulse Oximeter Pulse Oximetry (%) 98 Oxygen Delivery Method Room Air Intake Visit Reasons: 6wk fu lvm Media Analytics Manager Required: Yes Media Analytics Manager Name: Wolf [id number] Accompanied by: Self / Same As Patient Allergies No Known Allergies (No Known Allergies*) Allergy (Verified 04/04/25 11:05) Medication List - Last Reconciled 04/04/25 by Ian Person MD amlodipine 10 mg PO DAILY clotrimazole-betamethasone 1-0.05 % 1 appl topical DAILY ibuprofen 800 mg PO Q8H PRN lisinopril 40 mg PO DAILY metformin 1,000 mg PO BID tirzepatide (Mounjaro) mg subcut QWEEK HPI Comments Details: The patient is a 39-year-old female presenting with proteinuria. Proteinuria was identified during routine testing. The patient has essential hypertension for over two years, treated with lisinopril and amlodipine. Blood pressure control was not discussed. Type 2 diabetes mellitus is managed with metformin. Duration of diabetes is unspecified. Elevated liver enzymes are under evaluation with an ultrasound scheduled for March 17. Possible relation to diabetes noted. Medical History: - Essential Hypertension - Type 2 Diabetes Mellitus Medications: - Lisinopril for hypertension - Amlodipine for hypertension - Metformin for diabetes Social History: - No alcohol consumption - Non-smoker Diagnostic Results: - Labs: Proteinuria detected - Labs: Elevated liver enzymes 04/04/25 Here for follow up No new issues PFSH Medical History Diverticulosis Migraines History of kidney stones Obesity Anemia Diabetes Elevated cholesterol HTN (hypertension) Surgical History Hx of colonoscopy History of dilatation and curettage History of lithotripsy History of renal stent History of tubal ligation History of section Family History Father Renal failure Hypertension CVD (cardiovascular disease) Diabetes Mother Hypertension Arthritis Depression Maternal Grandmother Stroke Maternal Grandfather No problems noted. Paternal Grandfather Cancer Daughter In good health Daughter In good health Social History Alcohol intake: never Patient Tobacco Use Status: Former Tobacco user Female Reproductive History Menstrual Age of Menarche: 13 Physical Exam Vital Signs: Last Vital Signs Pulse 98 04/04/25 11:04 BP 112/72 04/04/25 11:04 Pulse Ox 98 04/04/25 11:04 Oxygen Delivery Method Room Air 04/04/25 11:04 BMI result Body Mass Index 35.0 Results Reviewed Nephrology Results: Hgb, (12.0-16.0) 14.5 g/dl 01/12/25 WBC, (4.8-10.8) 8.2 X10*3/uL 01/12/25 Plt Count, (160-400) 284 X10*3/uL 01/12/25 Sodium, (135-145) 137 mmol/L 02/21/25 Potassium, (3.3-5.1) 4.2 mmol/L 02/21/25 Chloride, (96-108) 103 mmol/L 02/21/25 Carbon Dioxide, (22-29) 26 mmol/L 02/21/25 BUN, (9-16) 9 mg/dL 02/21/25 Creatinine, (0.5-1.4) 0.66 mg/dL 02/21/25 Calcium, (8.4-10.2) 9.1 mg/dL 02/21/25 Urine Protein, (Neg-Trace) Trace mg/dL 02/21/25 Urine Creatinine 109.65 mg/dL 02/21/25 Assessment & Plan Assessment & Plan (1) HTN (hypertension), benign: Code(s): I10 - Essential (primary) hypertension Category: Medical (2) Diabetes: Code(s): E11.9 - Type 2 diabetes mellitus without complications Category: Medical Plan 1. Proteinuria UA showed 1+ or 30 mg by dipstick UPCR was normal. Repeat UA - No protein and Urine Pro: Cr is normal 2. Essential Hypertension - Maintain current antihypertensive regimen Low salt diet Maintain BP < 130/80 Will benefit from weight loss 3. Type 2 Diabetes Mellitus - Continue metformin therapy Continue ACEi Goal A1c < 7% Orders: Orders Basic Metabolic Panel 3 Months I10 - Essential (primary) hypertension Coding Level of Care Code Est Pt Level 4 (16074) Diagnoses HTN (hypertension), benign I10 Diabetes E11.9
--- OUTSIDE RECORDS SUMMARY | 2025-04-04 13:40 | XMS_ITS | Encounter Summary ---
Author Organization [employer] Address 75 [facility] 7t [place] [address] Care Team Providers Care Shipping Lead Name Role Phone Misti Alcocer Primary Care Provider [phone] Encounter Details Date Type Department Care Team (Late st Contact Info) Description 03/17/2025 Results Follow-Up [facility] MEDICINE [address] [place] [address] Misti Alcocer ANP [address] [place] [address] XR Chest 2 Views Social History Tobacco Use Types Packs/Day Years Used Date Smoking Tobacco: Former Cigarettes Q uit: 08/27/2010 Smokeless Tobacco: Never Alcohol Use Standard Drinks/Week Comments Not Currently 0 (1 standard drink = 0.6 oz pur e alcohol) Depression Answer Date Recorded Patient Health Questionnaire-9 Score 0 03/04/2025 Patient Health Questionnaire-9 Score 0 03/04/2025 Last PHQ-9: Questionnaire Data Not on file 0 03/04/2025 Housing Stability Answer Date Recorded What is your housing situation today? I have evgeny harper 03/04/[address] you li ve. Do you have problems with any of the following? None of the above 03/04/2025 Food Insecurity Answer Date Recorded Within the past 12 months, y ou worried that your food would run out before you got money to buy more: Never True 03/04/2025 Within the past 12 months,th e food you bought just didn't last and you didn't have enough money to get more: Never True Transportation Answer Date Recorded In the past 12 months, has l ack of transportation kept you from medical appts, meetings, work or from getting things needed for daily living? No 03/04/2025 Utilities Answer Date Recorded In the past 12 months, has t he electric, gas, oil or water company threatened to shut off services in your home? No 03/04/2025 Depression Answer Date Recorded Patient Health Questionnaire-2 Score 0 03/04/2025 Internet Access Answer Date Recorded Internet Access Q1 Yes 03/04/2025 Internet Access Q2 Not on file 03/04/2025 Comments No Sex and Gender Information Value Date Recorded Sex Assigned at Female 04/08/2022 10:18 AM EDT Legal Sex Female 10:18 AM EDT Gender Identity Female 04/08/2022 10:18 AM EDT Sexual Orientation Straight 04/08/2022 10 :18 AM EDT documented as of this encounter Plan of Treatment Upcoming Encounters Date Type Department Care Team (Late st Contact Info) Description 05/03/2025 11:15 AM EST Office Visit [facility] MEDICINE [address] [place] [address] Misti Alcocer ANP [address] [place] [address] 05/23/2025 2:00 PM EST Office Visit [facility] OPTOMETRY [address] [place] [address] Tarka, Billie, OD [address] [place] [address] documented as of this encounter Visit Diagnoses Not on filedocumented in this encounter Additional Health Concerns Assessment Noted Time PHQ-9 Depression Total Score: 0 03/04/20 25 3:01 PM EDT documented as of this encounter Care Teams Shipping Lead Relationship Specialty Start Date End Date Misti Alcocer ANP [address] [place] [address] PCP - General Family Medicine 01/29/21 documented as of this encounter
--- OUTSIDE RECORDS SUMMARY | 2025-04-04 13:40 | XMS_ITS | Encounter Summary ---
Author Organization [employer] Address 75 [facility] 7t [place] [address] Care Team Providers Care Biotech Production Specialist Name Role Phone Misti Alcocer Primary Care Provider [phone] Encounter Details Date Type Department Care Team (Late st Contact Info) Description 03/04/2025 Results Follow-Up [facility] MEDICINE [address] [place] [address] Misti Alcocer ANP [address] [place] [address] XR Chest 2 Views Social History Tobacco [...] AM EDT documented as of this encounter Functional Status * Over the past 2 weeks, how often have you been bothered by any of the following problems? Question Answer Date of Assessment Author Patient Health Questionnaire -2 Score 0 03/04/2025 3:01 PM EDT Sintia Escamilla MA * Little interest or pleasure in doing things Answer Date of Assessment Author Not at all 03/04/2025 3:01 PM EDT Rod Escamilla MA * Feeling down, depressed, or hopeless Answer Date of Assessment Author Not at all 03/04/2025 3:01 PM EDT Rod Escamilla MA * Trouble falling or staying asleep, or sleeping too much Answer Date of Assessment Author Not at all 03/04/2025 3:01 PM EDT Rod Escamilla MA * Feeling tired or having little energy Answer Date of Assessment Author Not at all 03/04/2025 3:01 PM EDT Rod Escamilla MA * Poor appetite or overeating Answer Date of Assessment Author Not at all 03/04/2025 3:01 PM EDT Rod Escamilla MA * Feeling bad about yourself - or that you are a failure or have let yourself or your family down Answer Date of Assessment Author Not at all 03/04/2025 3:01 PM EDT Rod Escamilla MA * Trouble concentrating on things, such as reading the newspaper or watching television Answer Date of Assessment Author Not at all 03/04/2025 3:01 PM EDT Rod Escamilla MA * Moving or speaking so slowly that other people could have noticed? Or the opposite - being so fidgety or restless that you have been moving around a lot more than usual. Answer Date of Assessment Author Not at all 03/04/2025 3:01 PM EDT Rod Escamilla MA * Thoughts that you would be better off or hurting yourself in some way Answer Date of Assessment Author Not at all 03/04/2025 3:01 PM EDT Rod Escamilla MA * Patient Health Questionnaire-9 Score Answer Date of Assessment Author 0 03/04/2025 3:01 PM EDT Rod Escamilla MA * Over the last 2 weeks, how often have you been bothered by any of the following problems? Question Answer Date of Assessment Author Feeling nervous, anxious, or on edge 0 03/04/2025 3:00 PM EDT Sintia Escamilla MA Not being able to stop or co ntrol worrying 0 03/04/2025 3:00 PM EDT Sintia Escamilla MA Worrying too much about diff erent things 2 03/04/2025 3:00 PM EDT Sintia Escamilla MA Trouble relaxing 0 03/04/2025 3:00 PM EDT Sintia Herrmann MA Being so restless that it is hard to sit still 0 03/04/2025 3:00 PM EDT Sintia Escamilla MA Becoming easily annoyed or irritable 2 03/04/2025 3:00 PM EDT Sintia Escamilla MA Feeling afraid as if somethi ng awful might happen 0 03/04/2025 3:00 PM EDT Sintia Escamilla MA YUE-7 Total Score 4 03/04/2025 3:00 PM EDT Sintia Escamilla MA documented as of this encounter Miscellaneous Notes * Result Encounter Note - LORETTA Velazquez - 03/04/2025 5:17 PM EDT Spoke w/ pt - will send amox-clav to [facility]. She will continue with azithromycin. documented in this encounter Plan of Treatment Upcoming Encounters Date Type Department Care Team ([facility] st Contact Info) Description 05/03/2025 11:15 AM EST Office Visit [facility] MEDICINE [address] [place] [address] Misti Alcocer ANP [address] [place] [address] 05/23/2025 2:00 PM EST Office Visit [facility] OPTOMETRY [address] [place] [address] Billie Jordan, OD [address] [place] [address] documented as of this encounter Visit Diagnoses Diagnosis Pneumonia of left lower lobe due to infectious organism- Primary documented in this encounter Additional Health Concerns Assessment Noted Time PHQ-9 Depression Total Score: 0 03/04/20 25 3:01 PM EDT documented as of this encounter Care Teams Biotech Production Specialist Relationship Specialty Start Date End Date Misti Alcocer ANP [address] [place] [address] PCP - General Family Medicine 01/29/21 documented as of this encounter
--- OUTSIDE RECORDS SUMMARY | 2025-04-04 13:40 | XMS_ITS | Encounter Summary ---
Author Organization [employer] Address 75 [facility] 7t [place] [address] Care Team Providers Care French Translator Name Role Phone Leodan Misti BURGOS Primary Care Provider [phone] Encounter Details Date Type Department Care Team (Latest Contact Info) Description 03/18/2025 Results Follow-Up [facility] MED & PEDS [address] [place], [place] [phone] Jovani Encarnacion, JAIR [address] [place] [address] US Abdomen Comp w elastography Social History Tobacco Use Types Packs/Day Years [...] Miscellaneous Notes * Result Encounter Note - Jovani Encarnacion CNP - 03/18/2025 4:12 PM EDT Charly Chappell, this is a patient I saw of yours a couple months back and I worked her up for transaminitis. Abdominal US consistent with hepatic steatosis, just an FYI. Hope you are well! Have a good weekend :) documented in this encounter Plan of Treatment Upcoming Encounters Date Type Department Care Team (Late st Contact Info) Description 05/03/2025 11:15 AM EST Office Visit [facility] MEDICINE [address] [place] [address] Misti Alcocer ANP [address] [place] [address] 05/23/2025 2:00 PM EST Office Visit [facility] OPTOMETRY [address] [place] [address] Billie Jordan OD [address] [place] [address] documented as of this encounter Visit Diagnoses Not on filedocumented in this encounter Additional Health Concerns Assessment Noted Time PHQ-9 Depression Total Score: 0 03/04/20 3:01 PM EDT documented as of this encounter Care Teams French Translator Relationship Specialty Start Date End Date Misti Alcocer ANP [address] [place] [address] PCP - General Family Medicine 01/29/21 documented as of this encounter
--- OUTSIDE RECORDS SUMMARY | 2025-04-04 13:40 | XMS_ITS | Clinical Summary ---
Author Organization [employer] Address [address] [place] [address] Care Team Providers Care Can Cleaner Name Role Phone Leodan Anisha BURGOS Primary Care Provider [phone] Allergies Active Allergy Reactions Criticality Noted Date Comments Dulaglutide Diarrhea Medium 04/19/2021 Medications * This document contains information received from the source organization and may not represent a complete record from that organization. Continuous Blood Gluc Instrument Assembly Supervisor (FreeStyle Alfonzo 2 [place]) deviceIndications :Type 2 diabetes mellitus with hyperlipidemia (HCC) Scan sensor every 6 hours 1 each 08/12/19 24 Active Continuous Blood Gluc Sensor (FreeStyle Alfonzo 2 Sensor) miscIndications:T ype 2 diabetes mellitus with hyperlipidemia (HCC) Apply 1 sensor every 14 days 2 each 08/12/19 24 Active Diclofenac Sodium 1 % gelIndications:Fi nger pain, left APPLY 2 grams TOPICALLY TO THE AFFECTED AREA(S) UP TO FOUR TIMES DAILY NEEDED FOR PAIN / SWELLING 100 g 2 08/18/19 25 Active metFORMIN (Glucophage) 500 MG tabletIndications :Hypertension associated with diabetes (HCC) TAKE 2 TABLETS BY MOUTH TWICE DAILY 360 tablet 1 11/23/19 25 Active lisinopril 40 MG tabletIndications :Hypertension associated with diabetes (HCC) TAKE 1 TABLET BY MOUTH EVERY DAY 90 tablet 1 11/23/19 25 Active atorvastatin (Lipitor) 10 MG tabletIndications :Hypertension associated with diabetes (HCC) TAKE 1 TABLET BY MOUTH EVERY DAY 90 tablet 1 11/23/19 25 Active amLODIPine (Norvasc) 5 MG tabletIndications :Hypertension associated with diabetes (HCC) Take 2 tablets (10 mg) by mouth Once per day. 60 tablet 11 01/13/20 25 026 Active albuterol (2.5 MG/3ML) 0.083% nebulizer solutionIndicatio ns:Wheezing Take 3 mL (2.5 mg) by nebulization every 6 (six) hours if needed for wheezing or shortness of breath. 75 mL 1 03/04/20 25 026 Active budesonide-formot nelson (Symbicort) 80-4.5 MCG/ACT inhalerIndication s:Wheezing Take 2 puffs as needed every 4-6 hours for wheezing, SOB. Rinse mouth with water after use to reduce aftertaste and incidence of candidiasis. Do not swallow. 1 each 03/04/20 25 Active Tirzepatide (Mounjaro) 2.5 MG/0.5ML solution auto-injectorIndi cations:Type 2 diabetes mellitus with hyperlipidemia (HCC) Inject 2.5 mg under the skin 1 (one) time per week. 2 mL 03/14/20 25 Active predniSONE (Deltasone) 20 MG tabletIndications :Wheezing Take 2 tablets (40 mg) by mouth Once per day for 3 days. 6 tablet 03/04/20 25 025 Discontinu ed(Therapy completed) guaiFENesin-dextr omethorphan (Robitussin DM) 100-10 MG/5ML syrupIndications: Acute cough Take 10 mL by mouth every 4 (four) hours if needed for cough for up to 10 days. 473 mL 03/04/20 25 025 azithromycin (Zithromax) 250 MG tabletIndications :Acute cough Take 2 tablets (500 mg) by mouth Once per day for 1 day, THEN 1 tablet (250 mg) Once per day for 4 days. 6 tablet 03/04/20 25 025 amoxicillin-clavu lanate (Augmentin) 875-125 MG tabletIndications :Pneumonia of left lower lobe due to infectious organism Take 1 tablet by mouth 2 times daily for 5 days. 10 tablet 03/04/20 25 025 predniSONE (Deltasone) 20 MG tabletIndications :Wheezing Take 2 tablets (40 mg) by mouth Once per day for 5 days. 10 tablet 03/14/20 25 025 Hospital, Clinic, or Other Facility Administered Medication Ordered Dose Route Frequency Start Date End Date Status ibuprofen tablet 800 mgIndications:Visit for insertion of intrauterine device 800 mg PO Once 08/15/2022 Active Active Problems Problem Noted Date Diagnosed Date Anxiety 10/18/2022 Anemia 09/12/2022 Type 2 diabetes mellitus with hyperlipidemia 11/2022 Healthcare maintenance 09/12/2022 Overview (03/14/2025): Pap NIL/HPV neg 05/2021 Mammo not yet due Colonoscopy: done d/t fam h/o early colon ca - 09/14/2021, hyperplastic polyp, repeat 5 years BMD: not yet due HCV Screen: 11/2020 negative HIV Screen: 11/2020 negative LDCT: young, quit smoking 2010 Immunizations: flu/COVID when available, consider HPV Dyslipidemia 06/16/2018 Hypertension associated with diabetes 04/06/2018 Obesity (BMI 30-39.9) 04/06/2018 Encounters Date Type Department Care Team Description 03/18/2025 Results Follow-Up [facility] CHC MED & PEDS [address] [place] [address] Jovani Encarnacion CNP US Abdomen Comp w elastography 03/17/2025 Results Follow-Up [facility] MEDICINE [address] [place] [address] Anisha Holloway ANP XR Chest 2 Views 03/14/2025 11:30 AM EDT Office Visit [address] [address] Anisha Holloway ANP Wheezing (Primary Dx); Pneumonia of left lower lobe due to infectious organism; Type 2 diabetes mellitus with hyperlipidemia (HCC); Healthcare maintenance 03/14/2025 Travel 03/13/2025 Travel 03/11/2025 Telephone [facility] WALK-IN CENTER [address] [place] [address] Carolina Rosas [place] 03/11/2025 Telephone [facility] MEDICINE [address] [place] [address] Anisha Holloway ANP chartprep 03/04/2025 1:30 PM EDT Office Visit [address] [address] Anisha Holloway ANP Type 2 diabetes mellitus with hyperlipidemia (CMS/HCC) (CMS/HCC) (Primary Dx); Hypertension associated with diabetes (CMS/HCC); Wheezing; Acute cough 03/04/2025 Results Follow-Up [address] [address] Anisha Holloway ANP XR Chest 2 Views 03/04/2025 Travel 03/03/2025 Travel 03/02/[address] [address] Anisha Holloway ANP chart prep 01/31/2025 Travel 01/17/[address] [address] Jovani Encarnacion CNP 01/14/2025 10:30 AM EDT Clinical Support [address] [address] Darlene Reddy, RN Hypertension associated with diabetes (CMS/HCC) 01/14/2025 Travel 01/12/2025 9:15 AM EDT Office Visit [address] [address] Jovani Encarnacion CNP Type 2 diabetes mellitus with hyperlipidemia (CMS/HCC) (CMS/HCC) (Primary Dx); Hypertension associated with diabetes (CMS/HCC); Dyslipidemia; Pre-op evaluation 01/12/2025 Orders Only [address] [address] Jovani Encarnacion CNP Transaminitis (Primary Dx); Proteinuria, unspecified type; Low blood urea nitrogen (BUN) 01/12/2025 Results Follow-Up [address] [address] Jovani Encarnacion CNP CBC auto differential, Comprehensive Metabolic Panel, Prothrombin Time-INR, Additional followed-up results: 6 01/12/2025 Travel 01/10/[address] [address] Anisha Holloway ANP Appointment Request 01/06/[address] [address] Anisha Holloway ANP chart prep from Last 3 Months Immunizations Immunization Administration [...] your housing situation today? I have evgeny leroy 03/04/[address] you li [...] Sign Reading Time Taken Comments Blood Pressure 130/80 03/14/2025 11:26 AM EDT Pulse 107 03/14/2025 11:26 AM EDT Temperature 36.6 C (97.8 F) 03/14/2025 11:26 AM EDT Respiratory Rate 17 03/14/2025 11:26 AM EDT Oxygen Saturation 97% 03/14/2025 11:26 AM EDT Inhaled Oxygen Concentration - - Weight 81.2 kg (179 lb) 03/14/2025 11:26 AM EDT Height 160 cm (5' 3 ) 03/14/2025 11:26 AM EDT Body Mass Index 31.71 03/14/2025 11:26 AM EDT Plan of Treatment Upcoming Encounters Date Type Department Care Team (Late st Contact Info) Description 05/03/2025 11:15 AM EST Office Visit [facility] MEDICINE [address] [place] [address] Anisha Holloway ANP [address] [place] [address] 05/23/2025 2:00 PM EST Office Visit [facility] OPTOMETRY [address] [place] [address] Billie Jordan, OD [address] [place] [address] Health Maintenance Due Date Last Done Comments CT Colonography 1987 Dental Prophylaxis 1987 FIT DNA/Cologuard 1987 FIT 1987 FOBT 1985 Sigmoidoscopy 1985 Family Planning (PISQ) 11/17/2002 HPV Vaccines (1 - 3-dose series) 11/17/2002 Hepatitis B Vaccines (1 of 3 - 19+ 3-dose series) 11/17/2006 Dental X-Ray: Full Mouth 07/04/2018 07/03/2015 Dental Oral Exam 07/05/2018 01/01/2018, , 07/03/2015 Diabetes: Foot Exam 12/21/2024 12/22/2023, 12/22/2023, 12/22/2023, Additional history exists COVID-19 Vaccine ( season) 2025 05/29/2021, 11/06/2020, 10/09/2020 Influenza Vaccine (#1) 2025 , 02/22/2022, 04/19/2021, Additional history exists Diabetes: Hemoglobin A1C 04/14/2025 025, 06/29/2024, 03/23/2024, Additional history exists Lipid Panel 06/23/2025 06/23/2024, 12/04/2020 Diabetes: Urine Protein Screening 06/29/2025 06/29/2024, 07/06/2021 Dental X-Ray: Bitewings 09/23/2025 09/23/19 25, 01/01/2018, 07/03/2015 Eye Exam 02/11/2026 02/12/2024, 09/0 10/2023, 02/12/2024, Additional history exists Alcohol/Substance Use Screening 03/04/2026 03/04/2025 Depression Screening 03/04/2026 03/04/2025, 03/04/20 25 Disability Screening 03/04/2026 03/04/2025 SDOH Screening 03/04/2026 03/04/2025 Tobacco Screening 03/14/2026 03/14/2025 Cervical Cancer Screening 05/21/2026 Pap Smear 05/21/2026 [...] Procedure Name Priority Date/Time Associated Diagnosis Comments US ABDOMEN COMPLETE WITH ELASTOGRAPHY Routine 03/17/2025 9:11 AM EDT Transaminitis XR CHEST 2 VIEWS Routine 03/17/2025 8:54 AM EDT Pneumonia of left lower lobe due to infectious organism XR CHEST 2 VIEWS Routine 03/04/2025 2:34 PM EDT Acute cough ECG 12-LEAD Routine 01/12/2025 10:40 AM EDT [...] Recently Relevant to Health Maintenance Results * US Abdomen Comp w elastography (03/17/2025 9:11 AM EDT) Anatomical Region Laterality Modality Abdomen Ultrasound 03/17/2025 9:11 AM EDT Narrative 03/17/2025 9:53 AM EDT [address] [address] Ultrasound Report Signed Patient: Jonathan Shaver MR#: [id number] : 1985 Acct:[id number] Age/Sex: 39 / F ADM Date: 03/17/25 Loc: HO.US Attending Dr: Jovani Encarnacion NP Ordering Physician: Jovani Encarnacion NP Date of Service: 03/17/25 Procedure(s): US abdomen comp w elastography Accession Number(s): [id number] cc: ANISHA HOLLOWAY WIRE THREADER; Jovani Encarnacion NP Reason for Exam: transaminitis EXAMINATION: US COMPLETE ABDOMEN WITH LIVER ELASTOGRAPHY CLINICAL INFORMATION: Transaminitis. COMPARISON: No relevant prior. Correlation made with CT abdomen and pelvis 08/03/2019. TECHNIQUE: Real-time imaging of the abdominal viscera. Noninvasive ultrasound liver fibrosis assessment is performed using [employer] [place] ElastPQ point quantification shear wave elastography (pSWE) with a C5-2 MHz transducer. Multiple elastography samples are obtained. FINDINGS: PANCREAS: The visualized pancreatic head and body are normal in appearance. The remainder of the pancreas is obscured from visualization by the overlying bowel gas. ABDOMINAL AORTA: No aortic aneurysm is seen. INFERIOR VENA CAVA: Visualized portions are normal. LIVER: Liver is normal in size, contour, with diffusely increased parenchymal echogenicity likely representing steatosis. There is no focal suspicious hepatic lesion. There is no intrahepatic biliary dilatation. The right lobe measures 16.5 cm in length. The left lobe measures 10.5 cm in length. Portal flow is towards the liver (hepatopetal). Shear wave liver elastography median stiffness is 1.5 m/s (reference: normal median stiffness is 1.3 m/s or less). IQR/median stiffness to assess sampling precision is 0.07 (reference: good quality data set is IQR/median stiffness of 0.15 or less). This indicates a quality data set. GALLBLADDER: The gallbladder is physiologically distended without evidence of stones, sludge, polyps, wall thickening or pericholecystic fluid. Negative sonographic Waldrop's sign. COMMON BILE DUCT: Normal in caliber measuring 0.3 cm in diameter. RIGHT KIDNEY: No hydronephrosis. No suspicious focal parenchymal lesions. The kidney measures 11.3 cm in maximum dimension. There is a lateral lower pole calculus measuring 0.7 x 0.4 x 0.6 cm. LEFT KIDNEY: No hydronephrosis. No renal calculi or focal parenchymal lesions. The kidney measures 12.0 cm in maximum dimension. SPLEEN: Unremarkable. The spleen measures 10.1 cm in maximum dimension. FREE FLUID: None seen. US/US abdomen comp w elastography IMPRESSION: 1. Diffusely increased hepatic echogenicity in keeping with hepatic steatosis. No suspicious focal hepatic lesion. 2. Liver elastography: In the absence of other known clinical signs, measurements rule out compensated advanced chronic liver disease. If there are known clinical signs, further testing may be needed for confirmation. 3. Normal gallbladder and bile ducts. 4. Nonobstructing right nephrolithiasis. REFERENCE: Society of Radiologists in Ultrasound Liver Stiffness Thresholds (2019): LIVER STIFFNESS THRESHOLDS: *Liver Stiffness equal or less than 1.3 m/s: High probability of being normal. *Liver Stiffness less than 1.7 m/s: In the absence of other known clinical signs, rules out compensated advanced chronic liver disease. *Liver Stiffness 1.7-2.1 m/s: Suggestive of compensated advanced chronic liver disease but need further test for confirmation. *Liver Stiffness over 2.1 m/s: Rules in compensated advanced chronic liver disease. *Liver Stiffness over 2.4 m/s: Suggestive of clinically significant portal hypertension. QUALITY OF DATA SET: *IQR/Median value equal or less than 0.15 implies a quality data set. *IQR/Median value over 0.15 implies a poor quality data set. SIGNIFICANT CHANGE FROM PRIOR EXAM: Significant change if liver stiffness measurement is 10% or greater from prior exam. OTHER CONSIDERATIONS: The stage of liver fibrosis may be overestimated in the setting of acute hepatitis, liver inflammation, elevated liver function tests, hepatic vascular congestion, obstructive cholestasis, non-fasting state, and infiltrative diseases such as amyloidosis and lymphoma. In some patients with NAFLD, the liver stiffness thresholds for compensated advanced chronic liver disease may be lower. In causes other than viral hepatitis and NAFLD, liver stiffness thresholds are not well established. Electronically signed by: Abdiel Fitzpatrick MD 03/17/2025 09:51 AM EDT Dictated By: Abdiel Fitzpatrick MD Signed By: <Electronically signed by Abdiel Fitzpatrick MD in OV> 03/17/25950 DD/ 0 TD/TT: 03/17/25931 Manager Animal: Procedure Note Donotuseinterpreter, Image - 03/17/[address] [address] Ultrasound Report Signed Patient: Beti Shaver#: [id number] : 1985Acct:[id number] Age/Sex: 39 / FADM Date: 03/17/25 Loc: HO.US Attending Dr: Jovani Encarnacion NP Ordering Physician: Jovani Encarnacion NP Date of Service: 03/17/25 Procedure(s): US abdomen comp w elastography Accession Number(s): [id number] cc: ANISHA HOLLOWAY WIRE THREADER; Jovani Encarnacion NP Reason for Exam: transaminitis EXAMINATION: US COMPLETE ABDOMEN WITH LIVER ELASTOGRAPHY CLINICAL INFORMATION: Transaminitis. COMPARISON: No relevant prior. Correlation made with CT abdomen and pelvis 08/03/2019. TECHNIQUE: Real-time imaging of the abdominal viscera. Noninvasive ultrasound liver fibrosis assessment is performed using [employer] ElastPQ point quantification shear wave elastography (pSWE) with a C5-2 MHz transducer. Multiple elastography samples are obtained. FINDINGS: PANCREAS: The visualized pancreatic head and body are normal in appearance. The remainder of the pancreas is obscured from visualization by the overlying bowel gas. ABDOMINAL AORTA: No aortic aneurysm is seen. INFERIOR VENA CAVA: Visualized portions are normal. LIVER: Liver is normal in size, contour, with diffusely increased parenchymal echogenicity likely representing steatosis. There is no focal suspicious hepatic lesion. There is no intrahepatic biliary dilatation. The right lobe measures 16.5 cm in length. The left lobe measures 10.5 cm in length. Portal flow is towards the liver (hepatopetal). Shear wave liver elastography median stiffness is 1.5 m/s (reference: normal median stiffness is 1.3 m/s or less). IQR/median stiffness to assess sampling precision is 0.07 (reference: good quality data set is IQR/median stiffness of 0.15 or less). This indicates a quality data set. GALLBLADDER: The gallbladder is physiologically distended without evidence of stones, sludge, polyps, wall thickening or pericholecystic fluid. Negative sonographic Waldrop's sign. COMMON BILE DUCT: Normal in caliber measuring 0.3 cm in diameter. RIGHT KIDNEY: No hydronephrosis. No suspicious focal parenchymal lesions. The kidney measures 11.3 cm in maximum dimension. There is a lateral lower pole calculus measuring 0.7 x 0.4 x 0.6 cm. LEFT KIDNEY: No hydronephrosis. No renal calculi or focal parenchymal lesions. The kidney measures 12.0 cm in maximum dimension. SPLEEN: Unremarkable. The spleen measures 10.1 cm in maximum dimension. FREE FLUID: None seen. US/US abdomen comp w elastography IMPRESSION: 1. Diffusely increased hepatic echogenicity in keeping with hepatic steatosis. No suspicious focal hepatic lesion. 2. Liver elastography: In the absence of other known clinical signs, measurements rule out compensated advanced chronic liver disease. If there are known clinical signs, further testing may be needed for confirmation. 3. Normal gallbladder and bile ducts. 4. Nonobstructing right nephrolithiasis. REFERENCE: Society of Radiologists in Ultrasound Liver Stiffness Thresholds (2020): LIVER STIFFNESS THRESHOLDS: *Liver Stiffness equal or less than 1.3 m/s: High probability of being normal. *Liver Stiffness less than 1.7 m/s: In the absence of other known clinical signs, rules out compensated advanced chronic liver disease. *Liver Stiffness 1.7-2.1 m/s: Suggestive of compensated advanced chronic liver disease but need further test for confirmation. *Liver Stiffness over 2.1 m/s: Rules in compensated advanced chronic liver disease. *Liver Stiffness over 2.4 m/s: Suggestive of clinically significant portal hypertension. QUALITY OF DATA SET: *IQR/Median value equal or less than 0.15 implies a quality data set. *IQR/Median value over 0.15 implies a poor quality data set. SIGNIFICANT CHANGE FROM PRIOR EXAM: Significant change if liver stiffness measurement is 10% or greater from prior exam. OTHER CONSIDERATIONS: The stage of liver fibrosis may be overestimated in the setting of acute hepatitis, liver inflammation, elevated liver function tests, hepatic vascular congestion, obstructive cholestasis, non-fasting state, and infiltrative diseases such as amyloidosis and lymphoma. In some patients with NAFLD, the liver stiffness thresholds for compensated advanced chronic liver disease may be lower. In causes other than viral hepatitis and NAFLD, liver stiffness thresholds are not well established. Electronically signed by: Abdiel Fitzpatrick MD 03/17/2025 09:51 AM EDT Dictated By: Abdiel Fitzpatrick MD Signed By: <Electronically signed by Abdiel Fitzpatrick MD in OV> 03/17/25950 DD/ 0 TD/TT: 03/17/25931 Manager Animal: us Jovani Encarnacion FORECLOSURE CLERK IMG US PROCEDURES Final R esult * XR Chest 2 Views (03/17/2025 8:54 AM EDT) Only the most recent of2 resultswithin the time period is included. Anatomical Region Laterality Modality Chest Radiographic Kath ging 03/17/2025 8:54 AM EDT Narrative 03/17/2025 9:04 AM EDT [place] [address] XRay Report Signed Patient: Jonathan Shaver MR#: [id number] : 1985 Acct:[id number] Age/Sex: 39 / F ADM Date: 03/17/25 Loc: . Attending Dr: Jovani Encarnacion WIRE THREADER Ordering Physician: ANISHA HOLLOWAY NP Date of Service: 03/17/25 Procedure(s): XR chest 2V Accession Number(s): [id number] cc: ANISHA HOLLOWAY NP Reason for Exam: repeat chest XR s/p tx for PNA EXAMINATION: XR CHEST CLINICAL INFORMATION: repeat chest XR s/p tx for PNA COMPARISON: Previous chest x-ray most recent February 2025 TECHNIQUE: 2 views of the chest were obtained. FINDINGS: No significant abnormality is noted involving the heart, lungs, mediastinum, bony thorax or soft tissues. Previously seen patchy opacities in the left lung on February 2025 exam are no longer seen. XR/XR chest 2V IMPRESSION: Unremarkable examination. Resolved left-sided pneumonia from February 2025. Electronically signed by: Eugenie Crisostomo MD 03/17/2025 09:02 AM EDT RP Dictated By: Eugenie Crisostomo MD Signed By: <Electronically signed by Eugenie Crisostomo MD in OV> 03/17/25901 DD/ 3 TD/TT: 03/17/25855 Manager Animal: SORAIDA Procedure Note Donotuseinterpreter, Image - 03/17/[address] [address] XRay Report Signed Patient: Beti Shaver#: [id number] : 1985Acct:[id number] Age/Sex: 39 / FADM Date: 03/17/25 Loc: . Attending Dr: Jovani Encarnacion WIRE THREADER Ordering Physician: ANISHA HOLLOWAY NP Date of Service: 03/17/25 Procedure(s): XR chest 2V Accession Number(s): [id number] cc: ANISHA HOLLOWAY NP Reason for Exam: repeat chest XR s/p tx for PNA EXAMINATION: XR CHEST CLINICAL INFORMATION: repeat chest XR s/p tx for PNA COMPARISON: Previous chest x-ray most recent February 2025 TECHNIQUE: 2 views of the chest were obtained. FINDINGS: No significant abnormality is noted involving the heart, lungs, mediastinum, bony thorax or soft tissues. Previously seen patchy opacities in the left lung on February 2025 exam are no longer seen. XR/XR chest 2V IMPRESSION: Unremarkable examination. Resolved left-sided pneumonia from February 2025. Electronically signed by: Eugenie Crisostomo MD 03/17/2025 09:02 AM EDT RP Dictated By: Eugenie Crisostomo MD Signed By: <Electronically signed by Eugenie Crisostomo MD in OV> 03/17/25901 DD/ 3 TD/TT: 03/17/25855 Manager Animal: SORAIDA Anisha BURGOS IMG XR PROCEDURES Final Result * ECG 12 lead (01/12/2025 10:40 AM EDT) Narrative Shashank JovaniJAIR - 01/12/2025 10:40 AM EDT 75bpm regular rhythm normal R wave progression ?t wave amplitude [facility] ECG ORDERABLES Final Res ult * (ABNORMAL) Urinalysis, Complete, with Reflex to Culture (01/12/2025 10:22 AM EDT) Color Urine Yellow [facility] Appearance Urine Clear [facility] PH 6.0 5.0 - 9.0 [facility] Glucose Urine UA 100(A) Negative mg/dL [facility] Urine Blood Negative Negative [facility] Specific [place] - Urine 1.020 1.005 - 1.025 [facility] Urine Protein 30 (1+)(A) Neg-Trace mg/dL [facility] Urine Ketones Trace Negative mg/dL [facility] Nitrite Urine Negative Negative [facility] Leukocyte Esterase Urine Negative Negative [facility] RBC Urine 0-2 0 - 2 /HPF [facility] Urine WBC 0-5 0 - 5 /HPF [facility] Urine Squamous Epithelial Cell 3-5 0 - 2 /HPF [facility] Urine Bacteria None Seen None Seen [facility] Hyaline Casts, Urine 0-2 0 - 2 /LPF [facility] Urine 01/12/2025 10:2 2 AM EDT 01/12/2025 11:12 AM EDT Narrative [facility] - 01/12/2025 11:37 AM EDT Urine, Clean Catch [facility] LAB URINE ORDERABLES Dee l Result [facility] [address] [place], [place] [id number] [phone] * CBC auto differential (01/12/2025 10:22 AM EDT) White Blood Count 8.2 4.8 - 10.8 X10*3/uL [facility] Red Blood Count 5.27 4.20 - 5.50 X10*6/uL [facility] Hemoglobin 14.5 12.0 - 16.0 g/dl [facility] Hematocrit 44.1 37.0 - 47.0 % [facility] Mean Corpuscular Volume 83.7 80.0 - 98.0 fL [facility] Mean Corpuscular Hemoglobin 27.5 27.0 - 33.0 pg [facility] Mean Corpuscular HGB Conc 32.9 31.0 - 35.0 g/dl [facility] Red Cell Distribution Width 13.7 11.0 - 16.0 % [facility] Platelet Count 284 160 - 400 X10*3/uL [facility] Mean Platelet Volume 10.0 9.4 - 12.3 fL [facility] Neutrophils Percent Auto 61.3 45 - 73 % [facility] Imm Gran Pct Auto 0.4 0.0 - 0.4 % [facility] Lymphocytes Percent Auto 30.7 20 - 40 % [facility] Monocytes Percent Auto 6.5 2 - 11 % [facility] Eosinophils Percent Auto 0.7 0 - 4 % [facility] Basophils Percent Auto 0.4 0 - 2 % [facility] NRBC Pct Auto 0.0 0.0 - 0.2 /100WBC [facility] Neutrophils Absolute Auto 5.0 2.0 - 8.3 x10*3/uL [facility] Imm Gran Abs Auto 0.03 0.00 - 0.03 X10*3/uL [facility] Lymphocytes Absolute Auto 2.5 1.2 - 4.9 X10*3/uL [facility] Monocytes Absolute Auto 0.5 0.1 - 1.2 X10*3/uL [facility] Eosinophils Absolute Auto 0.1 0.0 - 0.4 X10*3/uL [facility] Basophils Absolute Auto 0.0 0.0 - 0.2 X10*3/uL [facility] NRBC Abs Auto 0.000 0.0 - 0.012 X10*3/uL [facility] Blood Venous blood specimen / Unknown 01/12/2025 10:22 AM EDT 01/12/2025 11:14 AM EDT [facility] LAB BLOOD ORDERABLES Dee l Result Performing Organization Address [facility]/ZIP Co de Phone Number [facility] [address] [place] [address] [phone] * HIV-1/2 Antigen and Antibodies, Fourth Generation, with Reflexes (01/12/2025 10:22 AM EDT) [facility] HIV AB/AG Nonreactive Nonreactive [facility] Comment:HIV-1 p24 Ag and/or HIV-1/HIV-2 Ab not detected.A test result that is nonreactive does not exclude thepossibility of exposure to or infection with HIV-1 and/orHIV-2. Nonreactive results in this assay for individualswith prior exposure to HIV-1 and/or HIV-2 may be due toantigen and antibody levels that are below the limit ofdetection of this assay.The [employer] HIV Ag/Ab Combo assay result andsupplemental assay results should be interpreted inconjunction with the patient's clinical presentation,history and other laboratory results. If the results areinconsistent with clinical evidence, additional testing issuggested to confirm the result. Blood Venous blood specimen / Unknown 01/12/2025 10:22 AM EDT 01/12/2025 11:14 AM EDT [facility] LAB BLOOD ORDERABLES Dee l Result Performing Organization Address City/[facility]/ZIP Co de Phone Number [facility] [address] [place] [address] [phone] * Partial Thromboplastin Time, Activated (APTT) (01/12/2025 10:22 AM EDT) Pathologist [facility] Partial Thromboplastin Time 28.3 26.7 - 34.1 SEC [facility] Blood Venous blood specimen / Unknown 01/12/2025 10:22 AM EDT 01/12/2025 11:14 AM EDT [facility] LAB BLOOD ORDERABLES Dee l Result Performing Organization Address [facility]/[facility] Co de Phone Number [facility] [address] [place] [address] [phone] * Prothrombin Time-INR (01/12/2025 10:22 AM EDT) [facility] Prothrombin Time 11.1 10.9 - 12.4 SEC [facility] INTERNATIONAL NORM RATIO 1.0 0.9 - 1.1 [facility] Comment:INTERNATIONAL NORMAL IZED RATIO (INR) REFERENCE [...] 10:22 AM EDT 01/12/2025 11:14 AM EDT [facility] LAB BLOOD ORDERABLES Dee l Result Performing Organization Address [facility] [place]/[facility] Co de Phone Number [facility] [address] [place] [phone] * hCG, Total, Quantitative (01/12/2025 10:22 AM EDT) Pathologist [facility] HCG Quantitative <2 mIU/mL [facility] Comment:Weeks post LMP Appro ximate hCG(Last Menstrual Period) Range (mIU/ml)3 - 4 weeks 9 - 1304 - 5 weeks 75 - 2,6005 - 6 weeks 850 - 20,8006 - 7 weeks 4000 - 100,2007 - 12 weeks 11,500 - 289,46867 - 16 weeks 18,300 - 137,17693 - 29 weeks (2nd trimester) 1,400 - 53,67084 - 41 weeks (3rd trimester) 940 - [...] 10:22 AM EDT 01/12/2025 11:30 AM EDT [facility] LAB BLOOD ORDERABLES Dee l Result Performing Organization Address City/[facility]/ZIP Co de Phone Number [facility] [address] [place] [phone] * Magnesium (01/12/2025 10:22 AM EDT) Pathologist [facility] Magnesium 2.0 1.6 - 2.6 mg/dL [facility] Blood Venous blood specimen / Unknown 01/12/2025 10:22 AM EDT 01/12/2025 11:30 AM EDT [facility] LAB BLOOD ORDERABLES Dee l Result Performing Organization Address City/[facility]/ZIP Co de Phone Number [facility] [address] [place] [phone] * (ABNORMAL) Hemoglobin A1c (01/12/2025 10:22 AM EDT) Hemoglobin A1c 8.9(H) <6.0 % [facility] Comment:Hemoglobin A1C Refer ence Range Adults: 4.8 - 6.0 % Non diabetic: < 6.0 % Goal: < 7.0 %Additional Action Suggested: > 8.0 %Note: Hemoglobin A1c results are invalid for patients with abnormal amounts of HbF. Blood transfusions may impact the HbA1c concentration in the patient sample. Estimated Average Glucose 209 mg/dL [facility] Comment:eAG = Estimated ave rage glucose which is %A1C expressed asaverage glucose, using the formula of the L9X-LrgckurMuszkjp Glucose study (ADAG), Diabetes Care, Vol.31,#8,Jan. 2007 Blood Venous blood specimen / Unknown 01/12/2025 10:22 AM EDT 01/12/2025 11:14 AM EDT [facility] LAB BLOOD ORDERABLES Dee denney Result [facility] [address] [place] [address] [phone] * (ABNORMAL) Comprehensive Metabolic Panel (01/12/2025 10:22 AM EDT) Sodium 139 135 - 145 mmol/L [facility] Potassium 4.0 3.3 - 5.1 mmol/L [facility] Chloride 106 96 - 108 mmol/L [facility] Carbon Dioxide 26 22 - 29 mmol/L [facility] Anion Gap 11(L) 12 - 20 [facility] Urea Nitrogen (BUN) 6(L) 9 - 16 mg/dL [facility] Creatinine, Serum 0.66 0.5 - 1.4 mg/dL [facility] Estimated Glomerular Filt Rate >60 [facility] Comment:Chronic Kidney Disea se: Estimated GFR < 60 mL/min/1.75a5Galudi Kidney Disease: Estimated GFR < 15 mL/min/1.73m2 Glucose 162(H) 60 - 115 mg/dL [facility] Calcium 9.0 8.4 - 10.2 mg/dL [facility] Bilirubin, Total 0.8 0.0 - 1.0 mg/dL [facility] Aspartate Amino Transferase 34(H) 5 - 31 U/L [facility] Alanine Aminotransferase 52(H) 0 - 31 U/L [facility] Total Protein 7.5 6.5 - 8.0 g/dL [facility] Albumin Level 4.7 3.5 - 5.0 g/dL [facility] Alkaline Phosphatase 144(H) 39 - 117 U/L [facility] Blood Venous blood specimen / Unknown 01/12/2025 10:22 AM EDT 01/12/2025 11:30 AM EDT Jovani Encarnacion FORECLOSURE CLERK LAB BLOOD ORDERABLES Dee l Result Performing Organization Address City/[facility]/ZIP Co de Phone Number [facility] [address] [place] [phone] * Albumin, Random Urine W/Creatinine (06/29/2024 12:37 PM EST) Creatinine, Urine 133.67 mg/dL [facility] Microalbumin Urine 30.0 mg/L [facility] Microalbum Creatinine Ratio Ur 22.4 <30 ug/mg cr [facility] Comment:Albumin/Creatinine R atio Reference Ranges: Normal: < 30 ug/mg creatinine Microalbuminuria: 30 - 300 ug/mg creatinineClinical Albuminuria: > 300 ug/mg creatinine 06/29/2024 12:3 7 PM EST 06/29/2024 1:19 PM EST Anisha Holloway ANP LAB URINE ORDERABLES Final Resul t Performing Organization Address City/[facility]/ZIP Co de Phone Number [facility] [address] [place] [phone] * (ABNORMAL) Lipid Panel, Standard (06/23/2024 10:57 AM EST) Triglycerides 127 <150 mg/dL [facility] Comment:Desirable Triglyceri de: less than 150 mg/dLBorderline High Triglyceride 150-199 mg/dLHigh Triglyceride: 200-499 mg/dLVery High Triglyceride: greater than or equal to 5OO mg/dL Cholesterol 173 <200 mg/dL [facility] Comment:Desirable Cholestero l: less than 200 mg/dLBorderline High Cholesterol: 200-239 mg/dLHigh Cholesterol: greater than 239 mg/dL LDL Cholesterol Calculated 114(H) <100 mg/dL [facility] Comment:Desirable LDL: less than 100 mg/dLNear Optimal/Above Optimal LDL: 110- 129 mg/dLBorderline High LDL: 130-159 mg/dLHigh LDL: 160-189 mg/dLVery High LDL: greater than or equal to 190 mg/dL HDL Cholesterol 34(L) >40 mg/dL [facility] Comment:Desirable HDL: great er than 40 mg/dL Note: This HDL assay may give artificially low results in patients with liver disease. Blood Venous blood specimen / Unknown 06/23/2024 10:57 AM EST 06/23/2024 11:05 AM EST [facility] LAB BLOOD ORDERABLES Final Resul t [facility] [address] [place] [address] [phone] * HPV E6/E7 RFLX JOE 16 18/45 (08/15/2021 12:16 PM EST) HPV 16 RNA [facility] HPV 18/45 RNA [facility] HPV E6 E7 ADD [facility] HPV mRNA E6/E7 rflx Not Detected Not Detected [facility] Comment: Methodology: Casket Coverer-Mediated Amplification This assay detects E6/E7 viral messenger RNA (mRNA) from 14 high-risk HPV types (16,18,31,33,35,39,45,51,52,56,58,59,66,68). The analytical performance characteristics of this assay have been determined by [employer]. The modifications have not been cleared or approved by the FDA. This assay has been validated pursuant to the CLIA regulations and is used for clinical purposes. For additional information, please refer to http://education.SongFlame.Funderbeam/faq/PCA313k6 (This link if provided for information/ educational purposes only.) THIS TEST WAS PERFORMED AT: [facility] [address] [place] [address],[place] [address] JOANN CHEUNG MD 08/15/2021 12:1 6 PM EST Cordell Capone MD HISTORICAL/NON ORDERABLE LABS Fi nal Result Performing Organization Address [facility] [place]/[facility] Co de Phone Number [facility] [address] * Pap Smear (05/21/2021 12:00 AM EST) Swab Car[facility] LAB CYTOLOGY ORDERABLES F inal Result Performing Organization Address [facility]/[facility] de Phone Number [facility] [address] [place] [address], [place] [address] * HEPATITIS C AB W/REFL TO HCV RNA, QN, PCR (12/04/2020 8:33 AM EDT) HEPATITIS C ANTIBODY NON-REACT VERONICA NON-REACT VERONICA [facility] INDEX 0.01 <1.00 [facility] Comment: HCV antibody was non-reactive. There is no laboratory evidence of HCV infection. In most cases, no further action is required. However, if recent HCV exposure is suspected, a test for HCV RNA (test code 14031) is suggested. For additional information please refer to http://education.[employer]/faq/BPJ26u6 (This link is being provided for informational/ educational purposes only.) 12/04/2020 8:33 AM EDT Merrick Provider HISTORICAL/NON ORDERABLE LABS Final Result Performing Organization Address [facility] Co de Phone Number [facility] [address] from Last 3 Months or Most Recently Relevant to Health Maintenance Insurance [facility] MEDICA[facility] STAND ADULT Care Teams Can Cleaner Relationship Specialty Start Date End Date Anisha Holloway ANP [address] [place] [address] PCP - General Family Medicine 01/29/21
--- OUTSIDE RECORDS SUMMARY | 2025-04-04 13:40 | XMS_ITS | Encounter Summary ---
Author Organization [employer] Address [address] [facility] 7t [place] [address] Care Team Providers Care Stagecraft Teacher Name Role Phone Misti Alcocer Primary Care Provider [phone] Encounter Details Date Type Department Care Team (Late st Contact Info) Description 08/30/2024 Telephone [facility] CHC MED & PEDS [address] [place], [place] [phone] Misti Alcocer ANP [address] [place] [address] Social History Tobacco Use Types Packs/Day Years [...] Description 05/03/2025 11:15 AM EST Office Visit [facility] MEDICINE [address] [place] [phone] Misti Alcocer ANP [address] [place] [address] 05/23/2025 2:00 PM EST Office Visit [facility] OPTOMETRY [address] [place] [address] TarkaBillie, OD [address] [place] [address] documented as of this encounter Visit Diagnoses Not on filedocumented in this encounter Additional Health Concerns Assessment Noted Time PHQ-9 Depression Total Score: 0 08/12/19 24 11:08 AM EST documented as of this encounter Care Teams Stagecraft Teacher Relationship Specialty Start Date End Date Misti Alcocer ANP [address] [place] [phone] PCP - General Family Medicine 01/29/21 documented as of this encounter
--- OUTSIDE RECORDS SUMMARY | 2025-04-04 13:40 | XMS_ITS | Encounter Summary ---
Author Organization [employer] Address [address] [facility] 7t [place] [address] Care Team Providers Care Sample Patternmaker Name Role Phone Misti Alcocer Primary Care Provider [phone] Reason for Visit * Reason Onset Date Comments Pre-op Exam 12/13/2024 Encounter Details Date Type Department Care Team ([facility] st Contact Info) Description 12/13/2024 Telephone [facility] MEDICINE [address] [place], [place] [phone] Misti Alcocer ANP [address] [place], [place] [phone] Pre-op Exam Social History Tobacco Use Types [...] Description 05/03/2025 11:15 AM EST Office Visit [facility] MEDICINE [address] [place] [address] Misti Alcocer ANP [address] [place] [address] 05/23/2025 2:00 PM EST Office Visit [facility] OPTOMETRY [address] [place] [address] Billie Jordan, OD [address] [place] [address] documented as of this encounter Visit Diagnoses Not on filedocumented in this encounter Additional Health Concerns Assessment Noted Time PHQ-9 Depression Total Score: 0 08/12/19 24 11:08 AM EST documented as of this encounter Care Teams Sample Patternmaker Relationship Specialty Start Date End Date Misti Alcocer ANP [address] [place] [address] PCP - General Family Medicine 01/29/21 documented as of this encounter
--- OUTSIDE RECORDS SUMMARY | 2025-04-04 13:40 | XMS_ITS | Encounter Summary ---
Author Organization [employer] Address [address] [place] [address] 7t [place] [address] Care Team Providers Care Videotape Operator Name Role Phone Misti Alcocer Primary Care Provider [phone] Encounter Details Date Type Department Care Team (Late st Contact Info) Description 06/19/2022 Orders Only [facility] [address] [place] [phone] Kacey Tirado LPN Social History Tobacco Use [...] Description 05/03/2025 11:15 AM EST Office Visit [facility] [address] [place] [phone] Misti Alcocer ANP [address] [place] [address] 05/23/2025 2:00 PM EST Office Visit [facility] OPTOMETRY [address] [place] [address] TarBillie lerner, OD [address] [place] [address] documented as of this encounter Procedures Procedure [...] AM EDT) Influenza A PCR NEGATIVE Negative [facility] Influenza B PCR NEGATIVE Negative [facility] Resp Syncy Virus RNA Qual PCR NEGATIVE Negative [facility] SARS COV2 PCR NEGATIVE Negative [facility] Comment:All test results mus t [...] use by authorized laboratories.Testing performed on the [employer] GeneXpert utilizingreal-time RT-PCR.All SARS CoV2 and positive influenza A/B results arereported to [facility]. 01/18/2023 1:11 AM EDT 01/18/2023 1:17 AM EDT us [facility] Exter nal Provider LAB MICROBIOLOGY - GENERAL ORDERABLES Final Result [facility] [address] [place] [phone] * hCG, Total, Quantitative (01/17/2023 10:50 PM EDT) HCG Quantitative <2 mIU/mL [facility] Comment:Weeks post LMP Appro ximate hCG(Last Menstrual Period) Range (mIU/ml)3 - 4 weeks 9 - 1304 - 5 weeks 75 - 2,6005 - 6 weeks 850 - 20,8006 - 7 weeks 4000 - 100,2007 - 12 weeks 11,500 - 289,82570 - 16 weeks 18,300 - 137,45059 - 29 weeks (2nd trimester) 1,400 - 53,00094 - 41 weeks (3rd trimester) 940 - [...] Provider LAB BLOOD ORDERAB LES Final Result [facility] [address] [place] [phone] * (ABNORMAL) Comprehensive Metabolic Panel (01/17/2023 10:50 PM EDT) Sodium 138 135 - 145 mmol/L [facility] Potassium 3.8 3.3 - 5.1 mmol/L [facility] Chloride 108 96 - 108 mmol/L [facility] Carbon Dioxide 20(L) 22 - 29 mmol/L [facility] Anion Gap 14 12 - 20 [facility] Urea Nitrogen (BUN) 13 9 - 16 mg/dL [facility] Creatinine, Serum 0.78 0.5 - 1.4 mg/dL [facility] Creatinine Clr Calc Pharmacy 94.8 [facility] Comment:Provided height and weight: 149.86 cm,84.368 kg.eGFR (calculated from the MDRD study equation) and eCrCl(calculated from the Cockcroft-Gault equation) are based ondifferent parameters and may not yield comparable results.If eCrCl result is absurd, please check patient'sheight/weight. Estimated Glomerular Filt Rate >60 [facility] Comment:NOTE: For -Am erican individuals, multiply the result by 1.210.Chronic Kidney Disease: Estimated GFR < 60 mL/min/1.73u4Xwayna Kidney Disease: Estimated GFR < 15 mL/min/1.73m2 Glucose 111 60 - 115 mg/dL [facility] Calcium 9.6 8.4 - 10.2 mg/dL [facility] Bilirubin, Total 0.3 0.0 - 1.0 mg/dL [facility] Aspartate Amino Transferase 17 5 - 31 U/L [facility] Alanine Aminotransferase 28 0 - 31 U/L [facility] Total Protein 7.9 6.5 - 8.0 g/dL [facility] Albumin Level 4.5 3.5 - 5.0 g/dL [facility] Alkaline Phosphatase 106 39 - 117 U/L [facility] 01/17/2023 10:5 0 PM EDT 01/17/2023 10:53 PM EDT us [facility] External Provider LAB BLO OD ORDERABLES Final Result Performing Organization Address City/State/[facility] Co de Phone Number [facility] [address] [place] [address] [phone] documented in this encounter Visit Diagnoses Not on filedocumented in this encounter Care Teams Videotape Operator Relationship Specialty Start Date End Date Misti Alcocer ANP [address] [place] [phone] PCP - General Family Medicine 01/29/21 documented as of this encounter
--- OUTSIDE RECORDS SUMMARY | 2025-04-04 13:40 | XMS_ITS | Encounter Summary ---
Author Organization [employer] Address [address] [facility] 7t [place] [address] Care Team Providers Care Barrer And Tacker Name Role Phone Misti Alcocer Primary Care Provider [phone] Reason for Visit * Reason Onset Date Comments Prior Authorization 08/30/2024 Encounter Details Date Type Department Care Team ([facility] st Contact Info) Description 08/30/2024 Telephone [facility] CHC MED & PEDS [address] [place], [place] [phone] Misti Alcocer ANP [address] [place] [address] Prior Authorization Social History Tobacco Use Types [...] encounter Miscellaneous Notes * Telephone Encounter - Chrais Pollock - 08/30/2024 10:44 AM EDT Script for semaglutide (Ozempic) 4 MG/3ML solution pen-injector requires a prior authorization. documented in this encounter Plan of Treatment Upcoming Encounters Date Type Department Care Team (Late st Contact Info) Description 05/03/2025 11:15 AM EST Office Visit [facility] MEDICINE [address] [place] [address] Misti Alcocer ANP [address] [place] [address] 05/23/2025 2:00 PM EST Office Visit [facility] OPTOMETRY [address] [place] [address] Billie Jordan OD [address] [place] [address] documented as of this encounter Visit Diagnoses Not on filedocumented in this encounter Additional Health Concerns Assessment Noted Time PHQ-9 Depression Total Score: 0 08/12/19 11:08 AM EST documented as of this encounter Care Teams Barrer And Tacker Relationship Specialty Start Date End Date Misti Alcocer ANP [address] [place] [address] PCP - General Family Medicine 01/29/21 documented as of this encounter
== END 2025-04-04 11:15 | disposition home or self-care (01) ==
LOC: HO.HKA 10:57
PROVIDERS: PCP Nurse Practitioner Primary Care; Visit Provider Internal Medicine Hypertension Specialist
DX: I10 Essential (primary) hypertension (principal); E11.9 Type 2 diabetes mellitus without complications
CPT/HCPCS: 99214

== ENCOUNTER → 2025-04-04 10:56 | Outpatient (BNVA) | payer OTHER, SELFPAY | PROVIDERS: PCP Nurse Practitioner Primary Care; Visit Provider Internal Medicine Hypertension Specialist | DX: E11.9 Type 2 diabetes mellitus without complications (principal); I10 Essential (primary) hypertension | CPT/HCPCS: 99212 ==